=== PATIENT | female | born 1965 | race Caucasian/White ===

== ENCOUNTER → 2019-11-17 14:11 | Outpatient (BNVA) | payer MEDICAID, SELFPAY | PROVIDERS: Family Provider Nurse Practitioner Family; PCP Nurse Practitioner Family; Visit Provider Nurse Practitioner Family | DX: J02.9 Acute pharyngitis, unspecified (principal); R05 Cough | CPT/HCPCS: 87081; 87880 ==

== ENCOUNTER → 2019-11-20 12:08 | Outpatient (BNVA) | payer MEDICAID, SELFPAY | PROVIDERS: Family Provider Nurse Practitioner Family; PCP Nurse Practitioner Family; Visit Provider Nurse Practitioner | DX: G89.29 Other chronic pain (principal); M51.16 Intervertebral disc disorders with radiculopathy, lumbar region; M47.816 Spondylosis without myelopathy or radiculopathy, lumbar region; Z79.891 Long term (current) use of opiate analgesic | CPT/HCPCS: 99213; 99215 ==

== ENCOUNTER → 2019-12-08 15:55 | Outpatient (BNVA) | payer MEDICAID, SELFPAY | PROVIDERS: Family Provider Nurse Practitioner Family; PCP Nurse Practitioner Family; Visit Provider Specialist | DX: M25.512 Pain in left shoulder (principal) | CPT/HCPCS: 73030 ==

== ENCOUNTER → 2019-12-16 14:22 | Outpatient (BNVA) | payer MEDICAID, SELFPAY | PROVIDERS: Family Provider Nurse Practitioner Family; PCP Nurse Practitioner Family; Visit Provider Specialist | DX: G43.709 Chronic migraine without aura, not intractable, without status migrainosus (principal) | CPT/HCPCS: 99213 ==

== ENCOUNTER → 2019-12-18 13:07 | Outpatient (BNVA) | payer MEDICAID, SELFPAY | PROVIDERS: Family Provider Nurse Practitioner Family; PCP Nurse Practitioner Family; Visit Provider Anesthesiology | DX: G89.29 Other chronic pain (principal); M51.16 Intervertebral disc disorders with radiculopathy, lumbar region; M47.816 Spondylosis without myelopathy or radiculopathy, lumbar region; M79.651 Pain in right thigh; M79.652 Pain in left thigh; Z79.891 Long term (current) use of opiate analgesic | CPT/HCPCS: 99214 ==

== ENCOUNTER 2019-12-31 14:46 | Outpatient (CLI) | payer MEDICAID, SELFPAY ==
--- NOTE | 2019-12-31 14:55 | XR_ITS ---
WS: [id number] XR lumbar spine 2-3V* [id number] REASON FOR EXAM: CHRONIC BACK PAIN/DORSALGIA FINDINGS: The disc spaces and vertebral bodies are all normal. The lumbosacral angle is normal. AP projection the lamina, pedicles, spinous processes, and transverse processes are normal. A spina bifida occulta is seen at the S1 segment. XR/XR lumbar spine 2-3V* [id number] IMPRESSION: Normal lumbar spine. Spina bifida occulta S1 segment.
== END 2019-12-31 14:47 | disposition home or self-care (01) ==
LOC: RAD 14:49
PROVIDERS: Family Provider Nurse Practitioner Family; PCP Nurse Practitioner Family; Visit Provider Nurse Practitioner Family
DX: Q76.0 Spina bifida occulta (principal); M51.16 Intervertebral disc disorders with radiculopathy, lumbar region; M54.5 Low back pain; G89.29 Other chronic pain
CPT/HCPCS: 72100

== ENCOUNTER → 2020-01-20 13:01 | Outpatient (BNVA) | payer MEDICAID, SELFPAY | PROVIDERS: Family Provider Nurse Practitioner Family; PCP Nurse Practitioner Family; Visit Provider Anesthesiology | DX: G89.29 Other chronic pain (principal); M51.16 Intervertebral disc disorders with radiculopathy, lumbar region; M47.816 Spondylosis without myelopathy or radiculopathy, lumbar region; M79.651 Pain in right thigh; M79.652 Pain in left thigh; Z79.891 Long term (current) use of opiate analgesic | CPT/HCPCS: 99213 ==

== ENCOUNTER → 2020-01-26 08:37 | Outpatient (BNVA) | payer MEDICAID, SELFPAY | PROVIDERS: Family Provider Nurse Practitioner Family; PCP Nurse Practitioner Family; Visit Provider Nurse Practitioner Psychiatric/Mental Health | DX: F33.2 Major depressive disorder, recurrent severe without psychotic features (principal); G89.29 Other chronic pain | CPT/HCPCS: 99213 ==

== ENCOUNTER → 2020-01-30 08:43 | Outpatient (BNVA) | payer MEDICAID, SELFPAY | PROVIDERS: Family Provider Nurse Practitioner Family; PCP Nurse Practitioner Family; Visit Provider Nurse Practitioner Family | DX: E11.9 Type 2 diabetes mellitus without complications (principal); K75.81 Nonalcoholic steatohepatitis (NASH); K74.60 Unspecified cirrhosis of liver; E55.9 Vitamin D deficiency, unspecified; R53.83 Other fatigue | CPT/HCPCS: 80053; 80061; 82306; 83036 ==

== ENCOUNTER → 2020-02-12 10:41 | Outpatient (BNVA) | payer MEDICAID, SELFPAY | PROVIDERS: Family Provider Nurse Practitioner Family; PCP Nurse Practitioner Family; Visit Provider Nurse Practitioner | DX: E87.6 Hypokalemia (principal) | CPT/HCPCS: 80048 ==

== ENCOUNTER → 2020-02-23 08:31 | Outpatient (BNVA) | payer MEDICAID, SELFPAY | PROVIDERS: Family Provider Nurse Practitioner Family; PCP Nurse Practitioner Family; Visit Provider Nurse Practitioner Psychiatric/Mental Health | DX: F33.2 Major depressive disorder, recurrent severe without psychotic features (principal); G89.29 Other chronic pain | CPT/HCPCS: 90832; 99213 ==

== ENCOUNTER → 2020-04-19 07:35 | Outpatient (BNVA) | payer MEDICAID, SELFPAY | PROVIDERS: Family Provider Nurse Practitioner Family; PCP Nurse Practitioner Family; Visit Provider Nurse Practitioner Psychiatric/Mental Health | DX: F33.2 Major depressive disorder, recurrent severe without psychotic features (principal); G89.29 Other chronic pain | CPT/HCPCS: 99212 ==

== ENCOUNTER → 2020-04-28 14:37 | Outpatient (BNVA) | payer MEDICAID, SELFPAY | PROVIDERS: Family Provider Nurse Practitioner Family; PCP Nurse Practitioner Family; Visit Provider Nurse Practitioner Family | DX: M25.462 Effusion, left knee (principal); M79.644 Pain in right finger(s); M19.041 Primary osteoarthritis, right hand | CPT/HCPCS: 73130; 73562 ==

== ENCOUNTER → 2020-05-21 08:27 | Outpatient (BNVA) | payer MEDICAID, SELFPAY | PROVIDERS: Family Provider Nurse Practitioner Family; PCP Nurse Practitioner Family; Visit Provider Anesthesiology | DX: G89.29 Other chronic pain (principal); M51.16 Intervertebral disc disorders with radiculopathy, lumbar region; M47.816 Spondylosis without myelopathy or radiculopathy, lumbar region; M54.9 Dorsalgia, unspecified; Z79.891 Long term (current) use of opiate analgesic | CPT/HCPCS: 99212; 99213 ==

== ENCOUNTER → 2020-05-24 14:27 | Outpatient (BNVA) | payer MEDICAID, SELFPAY | PROVIDERS: Family Provider Nurse Practitioner Family; PCP Nurse Practitioner Family; Visit Provider Nurse Practitioner Family | DX: E11.9 Type 2 diabetes mellitus without complications (principal); J44.9 Chronic obstructive pulmonary disease, unspecified; K21.0 Gastro-esophageal reflux disease with esophagitis; E87.6 Hypokalemia; F41.9 Anxiety disorder, unspecified; R35.0 Frequency of micturition; J30.89 Other allergic rhinitis; G47.9 Sleep disorder, unspecified; E83.42 Hypomagnesemia; E78.2 Mixed hyperlipidemia; K59.09 Other constipation; G43.709 Chronic migraine without aura, not intractable, without status migrainosus; F32.9 Major depressive disorder, single episode, unspecified; R11.0 Nausea; R05 Cough | CPT/HCPCS: 80053; 80061; 82306; 83036; 84443; 85025 ==

== ENCOUNTER → 2020-05-25 15:35 | Outpatient (BNVA) | payer MEDICAID, SELFPAY | PROVIDERS: Family Provider Nurse Practitioner Family; PCP Nurse Practitioner Family; Visit Provider Nurse Practitioner Family | DX: J44.9 Chronic obstructive pulmonary disease, unspecified (principal); R05 Cough | CPT/HCPCS: 71046 ==

== ENCOUNTER → 2020-05-27 14:59 | Outpatient (BNVA) | payer MEDICAID, SELFPAY | PROVIDERS: Family Provider Nurse Practitioner Family; PCP Nurse Practitioner Family; Visit Provider Dermatology | DX: L98.1 Factitial dermatitis (principal); D23.9 Other benign neoplasm of skin, unspecified; B07.8 Other viral warts; L83 Acanthosis nigricans; L91.8 Other hypertrophic disorders of the skin | CPT/HCPCS: 17000; 17003; 99203; 99204 ==

== ENCOUNTER 2020-07-12 10:40 | Outpatient (CLI) | payer MEDICAID, SELFPAY ==
--- NOTE | 2020-07-12 10:45 | FL_ITS ---
WS: [id number] EXAM: DOUBLE CONTRAST ESOPHAGRAM DATE OF EXAMINATION: 07/12/2020, 1104 hours COMPARISON: None. HISTORY: Patient is 54 years old with dysphagia. FINDINGS: Public Address System Installer imaging shows a normal appearance to the retropharyngeal soft tissues. No steepling of the airw ay is seen. Double contrast esophagram was performed in routine fashion. There is utilization of both sides of the piriform sinuses. Esophageal mucosa is smooth. Esophageal peristalsis is normal. A fair ly patulous GE junction is demonstrated which could suggest reflux disease. Patient swallowed a bariu m tablet which passed easily into the stomach. FL/FL barium swallow [id number] IMPRESSION: Essentially normal esophagram other than a fairly patulous GE junction. Questio n if the patient has underlying reflux disease.
== END 2020-07-12 10:41 | disposition home or self-care (01) ==
LOC: RAD 10:42
PROVIDERS: PCP Nurse Practitioner Family; Visit Provider Specialist
DX: R13.10 Dysphagia, unspecified (principal)
CPT/HCPCS: 74220; 99212

== ENCOUNTER 2020-07-16 09:53 | Outpatient (CLI) | payer MEDICAID, SELFPAY ==
--- NOTE | 2020-07-16 10:04 | FL_ITS ---
WS: [id number] MODIFIED BARIUM SWALLOW HISTORY: Other dysphagia FLUOROSCOPY TIME: 2.4 minutes. Modified barium swallow was performed by the speech pathologist. Fluoroscopy was provided with the pa tient in a lateral projection. Multiple food consistencies were provided. No aspiration or laryngeal penetration on this examination. There was difficulty in forming a food nitin chana and swallowing. Patient was edentulous during this examination. There is mild pharyngeal coating of barium throughout this examination. Patient swallowed the barium tablet without too much difficult y. FL/FL barium swallow modifd [id number] IMPRESSION: 1. No aspiration or laryngeal penetration. 2. Mild residual barium coating of the pharynx. Please see speech therapist report also for recommendations.
== END 2020-07-16 09:54 | disposition home or self-care (01) ==
LOC: RAD 10:00
PROVIDERS: PCP Nurse Practitioner Family; Visit Provider Specialist
DX: R13.10 Dysphagia, unspecified (principal)
CPT/HCPCS: 74230; 92611

== ENCOUNTER → 2020-07-26 11:42 | Outpatient (BNVA) | payer MEDICAID, SELFPAY | PROVIDERS: PCP Nurse Practitioner Family; Visit Provider Internal Medicine | DX: Z20.828 Contact with and (suspected) exposure to other viral communicable diseases (principal) | CPT/HCPCS: 87635 ==

== ENCOUNTER 2020-07-29 11:37 | Outpatient (CLI) | payer MEDICAID, SELFPAY ==
--- NOTE | 2020-07-29 09:27 | PFTS_ITS ---
Date of Study:07/29/20 Date of Dictation: MECHANICS: Forced vital capacity (FVC) is reduced. Forced expiratory volume in one second (FEV1) is reduced. FEV1/FVC is normal. FLOW VOLUME LOOP: The flow volume loop is without any distinct peak expiratory flow. The shape of the flow volume loop is somewhat consistent with a fixed airway obstruction LUNG VOLUMES: Lung volumes were not measured DIFFUSING CAPACITY FOR CARBON MONOXIDE: Not measured INTERPRETATION: The postbronchodilator spirometry is consistent with mild restriction. There is no significant postbronchodilator response. The shape of the flow volume loop is suspicious for fixed airflow obstruction MTDD
--- NOTE | 2020-07-29 14:14 | PFTS_ITS ---
Date of Study:07/29/20 Date of Dictation: MECHANICS: Forced vital capacity (FVC) is . Forced expiratory volume in one second (FEV1) is . FEV1/FVC is . FLOW VOLUME LOOP: . LUNG VOLUMES: Total lung capacity (TLC) is . Residual volume (RV) is . DIFFUSING CAPACITY FOR CARBON MONOXIDE: . INTERPRETATION: The pulmonary function tests are . mechanics and lung volumes. Gas exchange (DLCO) is . MTDD
== END 2020-07-29 11:38 | disposition home or self-care (01) ==
LOC: RT 11:38
PROVIDERS: PCP Nurse Practitioner Family; Visit Provider Specialist
DX: R13.10 Dysphagia, unspecified (principal)
CPT/HCPCS: 94060; J7611

== ENCOUNTER → 2020-10-07 08:27 | Outpatient (BNVA) | payer MEDICAID, SELFPAY | PROVIDERS: PCP Nurse Practitioner Family; Visit Provider Nurse Practitioner Psychiatric/Mental Health | DX: F33.2 Major depressive disorder, recurrent severe without psychotic features (principal); G89.29 Other chronic pain; F41.9 Anxiety disorder, unspecified; F33.1 Major depressive disorder, recurrent, moderate | CPT/HCPCS: 99212 ==

== ENCOUNTER → 2020-10-26 09:31 | Outpatient (BNVA) | payer MEDICAID, SELFPAY | PROVIDERS: PCP Nurse Practitioner Family; Visit Provider Nurse Practitioner Family | DX: H00.019 Hordeolum externum unspecified eye, unspecified eyelid (principal); E11.9 Type 2 diabetes mellitus without complications; E78.5 Hyperlipidemia, unspecified; E55.9 Vitamin D deficiency, unspecified; Z79.899 Other long term (current) drug therapy | CPT/HCPCS: 80053; 80061; 83036; 84443; 85025 ==

== ENCOUNTER 2020-11-16 16:41 | Outpatient (CLI) | payer BC, MEDICAID, SELFPAY ==
[2020-11-18 16:18] LABS: Immunoglobulin E 138 kU/L (<OR=114)
[2020-11-19 16:18] LABS: Alternaria Alternata (M6) Ige <0.10 kU/L; Alternaria Class 0; Bermuda Class 0; Bermuda Grass (G2) Ige <0.10 kU/L; Cat Dander (E1) Ige <0.10 kU/L; Cat Dander Class 0; Common Ragweed (Short) (W1) Ig <0.10 kU/L; D. Farinae Class 0; Dermatophagoides Class 0; Dermatophagoides Farinae (D2) <0.10 kU/L; Dermatophagoides Pteronyssinus <0.10 kU/L; Dog Dander (E5) Ige <0.10 kU/L; Dog Dander Class 0; Elm (T8) Ige <0.10 kU/L; Elm Class 0; English Plantain (W9) Ige <0.10 kU/L; English Plantain Class 0; House Dust (Greer) (H1) Ige <0.10 kU/L; House Dust (Hollister- Stier) <0.10 kU/L; House Dust Class 0; Immunoglobulin E 139 kU/L (<OR=114); Johnson Grass (G10) Ige <0.10 kU/L; Johnson Grass Cl 0; June Grass Class 0; June Grass(Kentucky Blue) (G8) <0.10 kU/L; Lamb'S Quarters (Goose Foot) <0.10 kU/L; Lamb'S Quarters Class 0; Maple (Box Elder) (T1) Ige <0.10 kU/L; Maple Class 0; Meadow Fescue (G4) Ige <0.10 kU/L; Meadow Fescue Class 0; Mucor Racemosus Class 0; Oak (T7) Ige <0.10 kU/L; Oak Class 0; Orchard Grass (Cocksfoot) (G3) <0.10 kU/L; Penicillium Class 0; Penicillium Notatum (M1) Ige <0.10 kU/L; Perennial Rye Grass (G5) Ige <0.10 kU/L; Perennial Rye Grass Class 0; Ragweeed Class 0; Rough Marsh Elder (W16) Ige <0.10 kU/L; Rough Marsh Elder Class 0; Sweet Vernal Class 0; Sweet Vernal Grass (G1) Ige <0.10 kU/L; Timothy Grass (G6) Ige <0.10 kU/L; Timothy Grass Class 0
[2020-11-19 18:49] LABS: Aspergillus Fumigatus, Igg Ab, 10.9 mg/L (<=102)
== END 2020-11-16 16:42 | disposition home or self-care (01) ==
PROVIDERS: PCP Nurse Practitioner Family; Visit Provider Internal Medicine Critical Care Medicine
DX: J44.9 Chronic obstructive pulmonary disease, unspecified (principal)
CPT/HCPCS: 36415; 82785; 86003

== ENCOUNTER 2020-11-19 15:43 | Emergency (ER) | payer BC, MEDICAID, SELFPAY ==
[2020-11-19 15:49] VITALS: BP 133/64; PULSE 70; RESP 18; TEMP 36.8; O2SAT 96; BMI 43.0
--- NOTE | 2020-11-19 15:57 | W.ED.ABDPA2 ---
Documented by User: WEI Espinal 11/19/20 16:09 HPI - Abdominal Pain General: Chief Complaint: Abdominal Pain Stated Complaint: right side pain Time Seen by Provider: 11/19/20 15:50 Source: patient Mode of arrival: ambulatory Limitations: no limitations History of Present Illness: HPI narrative: Patient is a 55-year-old female who presents to ED today after she was referred here by her PCP for complaints of right upper abdominal pain. Patient tells me pain began fairly suddenly after she awoke from sleep. Patient denies nausea, vomiting, diarrhea, constipation. She has not been experiencing fevers. She has a history of a previous cholecystectomy. She denies dysuria, frequency, urgency, or changes in the color or odor of her urine. MD elicited complaint: abdominal pain Onset (ago): hour(s) Pain Consistency: constant Location: RUQ Severity: severe Radiation: R flank Exacerbating factors: nothing Relieving factors: nothing Associated Symptoms: Denies change in stool character, chills, constipation, diarrhea, dysuria, fever(s), nausea and vomiting Review of Systems Const: Denies: fever(s), chills, body aches, fatigue or malaise Card: Denies: chest pain Resp: Denies: dyspnea GI: Reports: abdominal pain; Denies: nausea, vomiting, diarrhea, constipation or change in stool character : Denies: flank pain, difficulty voiding, dysuria, urinary frequency, urinary urgency, urinary hesitancy, vaginal odor, vaginal bleeding, vaginal discharge or pelvic pain Musc: Denies: neck pain or back pain Skin/Breast: Denies: rash Neuro: Denies: headache(s), numbness in extremities, weakness in extremities or sensory changes PFS ED PFSH: Medical History (Updated 11/19/20 @ 18:02 by ERASTO Pimentel) Anxiety and depression Chronic back pain greater than 3 months duration Chronic constipation Chronic migraine Chronic nausea COPD with asthma Diabetes mellitus Diabetic neuropathy Encounter for long-term opiate analgesic use Environmental and seasonal allergies Facet arthritis of lumbar region GERD (gastroesophageal reflux disease) History of suicidal ideation HSV-2 infection Hyperlipidemia Hypokalemia Hypomagnesemia 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 Lumbar disc disease with radiculopathy Lung nodule Major depressive disorder, recurrent, moderate Sleeping difficulty Urinary frequency Vitamin D deficiency, unspecified Surgical History Hx of cholecystectomy Hx of exploratory laparotomy abdominal surgery Hx of tonsillectomy Hx of unilateral oophorectomy left benign tumor Family History Mother Stroke maternal grandmother Father Cancer Lung Family/Other Diabetes Uncle Other Breast cancer Colon cancer Family history of thyroid problem Heart disease Ovarian cancer Uterine cancer Social History Smoking and tobacco status: former smoker Quit status (tobacco): has quit using tobacco Year quit tobacco: 1996 - 1PPD x 20 Years Second hand smoke exposure: Yes Alcohol intake: never Counseling given: No Counseling given: No Lives independently: Yes Household members: children Marital status: Current occupational status: unemployed History of recent travel: No Current gender identity: Female Additional social history: - Tobacco use: Former; quit in 1999 Alcohol use: Denies Drug use: Denies Physical Exam Const: COMMON NORMALS: no acute distress, patient oriented x3, no limitations and alert GENERAL APPEARANCE: cooperative NUTRITIONAL APPEARANCE: obese morbidly obese ORIENTATION/CONSCIOUSNESS: Yes awake, Yes oriented to person, Yes oriented to place and Yes oriented to time Resp: COMMON NORMALS: normal respiratory effort and clear to auscultation bilaterally EFFORT & INSPECTION: Yes able to speak in complete sentences AUSCULTATION: clear to auscultation bilaterally Cardio: COMMON NORMALS: regular rate and regular rhythm RATE: regular rate RHYTHM: regular rhythm GI: COMMON NORMALS: Normal to inspection, nondistended, normoactive bowel sounds present, Soft to palpation, No hepatosplenomegaly present and no masses PALPATION: Yes Soft to palpation, Yes Tenderness to palpation present (GI) Details: RUQ and Yes No hepatosplenomegaly present Back/Pelvis: GENERAL BACK: Yes CVA tenderness (mild R) Extremity: COMMON NORMALS: no pedal edema GENERAL: Yes normal exam except as noted Neuro: COMMON NORMALS: patient oriented x3 SENSORIUM/ORIENTATION: Yes alert, Yes oriented to person, Yes oriented to place and Yes oriented to time Skin: COMMON NORMALS: no rashes or lesions noted GENERAL SKIN EXAM: no rashes or lesions noted Course Vital Signs: Vital signs: Vital Signs Temperature 98.2 F 11/19/20 15:49 Pulse Rate 71 11/19/20 17:38 Respiratory Rate 18 11/19/20 17:38 Blood Pressure 142/84 11/19/20 17:38 Pulse Oximetry 97 11/19/20 17:38 MDM - Abdominal Pain Lab Data: Labs: Lab Results 11/19/20 11/19/20 11/19/20 Range/Units 16:01 16:01 16:12 WBC 10.6 H (4.0-10.0) 10^3/ uL RBC 5.85 H (4.1-5.3) 10^6/u L Hgb 15.3 (11.5-15.3) g/dL Hct 48.6 H (37.0-47.0) % MCV 83.1 (81-99) fL MCH 26.2 L (28.0-34.0) pg MCHC 31.5 (30.0-36.0) g/dL RDW 15.7 H (12.1-15.1) % Plt Count 309 (130-400) 10^3/c mm MPV 9.8 (7.4-10.4) fL Neut % (Auto) 57.3 % Lymph % (Auto) 32.5 % Reagan % (Auto) 7.7 % Eos % (Auto) 1.5 % Baso % (Auto) 0.7 % Neut # (Auto) 6.08 (1.8-7.7) 10^3/u L Lymph # (Auto) 3.4 (0.8-4.8) 10^3/u L Reagan # (Auto) 0.8 (0.2-0.9) 10^3/u L Eos # (Auto) 0.2 (0.0-0.8) 10^3/u L Baso # (Auto) 0.1 (0.0-0.1) 10^3/u L Nucleated RBC % (a uto) 0 % Nucleated RBCs # 0.0 /100WBC Sodium 136 (136-145) mmol/L Potassium 4.2 (3.5-5.1) mmol/L Chloride 100 (98-107) mmol/L Carbon Dioxide 25 (22-29) mmol/L Anion Gap 15.2 (5-19) BUN 16 (6-20) mg/dL Creatinine 0.8 (0.5-0.9) mg/dL GFR Calculation 74.5 L (90-130) mL/min Glucose 196 H (65-115) mg/dL Calculated Osmolal ity 289 (285-295) mOsm/k g Calcium 10.0 (8.5-10.5) mg/dL Total Bilirubin 0.2 (0.15-1.2) mg/dL AST 28 (0-32) U/L ALT 24 (0-33) U/L Alkaline Phosphata se 129 H (35-105) IU/L Total Protein 7.5 (6.6-8.7) g/dL Albumin 4.1 (3.5-5.2) g/dL Globulin 3.4 (1.3-4.6) g/dL Urine Color Yellow (Yellow) Urine Appearance Clear (CLEAR) Urine pH 5 (5-7) Ur Specific Gravit y 1.010 (1.005-1.030) Urine Protein Neg (Negative) Urine Glucose (UA) 4+ H (Normal) Urine Ketones Negative (Negative) Urine Blood Neg (Negative) Urine Nitrate Negative (Negative) Urine Bilirubin Neg (Negative) Urine Urobilinogen Norm (Negative) mg/dL Ur Leukocyte Courtney ase Negative (Negative) Discharge Plan Discharge Patient Disposition: Home Clinical Impression: 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, Fatty liver Abdominal pain Qualifiers: Abdominal location: right upper quadrant Qualified Code(s): R10.11 - Right upper quadrant pain Condition: Stable Prescriptions: No Action vitamin E 200 unit capsule 400 unit PO DAILY@0930 RF: 0 terconazole 0.8 % cream 1 appful VAGINAL .nightly Qty: 20 RF: 0 cyclobenzaprine 10 mg tablet 10 mg PO TID PRN (Reason: MUSCLE SPASMS) RF: 0 albuterol sulfate 90 mcg/actuation HFA aerosol inhaler 2 puff INHALATION Q6H PRN (Reason: shortness of breath or wheezing) 30 Days Qty: 6.7 RF: 5 cholecalciferol (vitamin D3) 1,250 mcg (50,000 unit) capsule See Rx Instructions .ROUTE .COMPLEX Qty: 4 RF: 2 benzonatate 200 mg capsule 200 mg PO TID PRN (Reason: cough) 30 Days Qty: 90 RF: 2 docusate sodium [Colace] 100 mg capsule 100 mg PO BID PRN (Reason: constipation) 30 Days Qty: 60 RF: 5 rizatriptan [Maxalt-STRATEGIC PARTNER DEVELOPMENT MANAGER] 10 mg tablet,disintegrating See Rx Instructions PO .COMPLEX Qty: 14 RF: 3 fluticasone propionate [Flonase Allergy Relief] 50 mcg/actuation spray,suspension 1 spray intranasal Q12H 30 Days Qty: 15.8 RF: 3 azelastine 137 mcg (0.1 %) aerosol,spray 2 spray intranasal BID 30 Days Qty: 30 RF: 3 albuterol sulfate 2.5 mg /3 mL (0.083 %) solution for nebulization 2.5 mg INHALATION QID PRN (Reason: wheezing) Qty: 180 RF: 2 Ubrelvy 100 mg tablet 100 mg PO ONCE MDD 200 mg PRN (Reason: Migraine ) Qty: 30 RF: 2 oxycodone 5 mg tablet 5 mg PO QID PRN (Reason: pain) 30 Days Qty: 120 RF: 0 sumatriptan succinate 100 mg tablet 100 mg PO Q2H PRN (Reason: migraine headache) Qty: 9 RF: 4 Advair Diskus 250-50 mcg/dose blister with device 1 inh INHALATION BID@929,2099 RF: 0 Carafate 1 gram tablet 1 g PO TID@929,1199,2099 RF: 0 simvastatin 80 mg tablet 80 mg PO DAILY@929 RF: 0 pantoprazole 40 mg tablet,delayed release (DR/EC) 40 mg PO BID@929,2099 RF: 0 oxybutynin chloride 5 mg tablet extended release 24hr 5 mg PO DAILY@929 RF: 0 paroxetine HCl 40 mg tablet 40 mg PO DAILY@929 RF: 0 propranolol 20 mg tablet 40 mg PO BID@929,2099 RF: 0 magnesium 200 mg tablet 400 mg PO DAILY@929 RF: 0 melatonin 10 mg tablet 10 mg PO BEDTIME RF: 0 dapagliflozin 10 mg tablet 10 mg PO DAILY@929 RF: 0 potassium chloride 20 mEq tablet extended release 20 meq PO BID@929,2099 RF: 0 Discharge Orders: Discharge ED (Routine); Ordered 11/19/20 Ordered By: June Grimm Referrals: Jaleesa Diop FNP-C [Primary Care Provider] - Discharge Diet: Low Cholesterol and Low Fat Discharge Activity: Resume usual activity Patient Instructions: Acute Abdominal Pain (ED), Non-Alcoholic Fatty Liver Disease (ED), Abdominal Pain (ED) Activity Restrictions/Additional Instructions: Continue current medications as prescribed by your primary care provider Continue follow-up with primary care for abdominal pain if continues Recommend low-fat, low-cholesterol diet to help with fatty liver findings Return to the emergency department if you develop worsening abdominal pain, nausea vomiting or other concerning symptoms such as blood in your urine or stool. Sign Out Sign Out Data: Patient Sign Out occurred on 11/19/20 at 17:17. Patient's care was discussed, and care was transferred from to ERASTO Pimentel. Coding Level of Care Code ED Supervisor [employer] for Chg Fwd Exam Detailed Documented by User: ERASTO Pimentel 11/19/20 18:18 HPI - Abdominal Pain General: Chief Complaint: Abdominal Pain Stated Complaint: right side pain Time Seen by Provider: 11/19/20 15:50 PFSH ED PFSH: Medical History (Updated 11/19/20 @ 18:02 by ERASTO Pimentel) Anxiety and depression Chronic back pain greater than 3 months duration Chronic constipation Chronic migraine Chronic nausea COPD with asthma Diabetes mellitus Diabetic neuropathy Encounter for long-term opiate analgesic use Environmental and seasonal allergies Facet arthritis of lumbar region GERD (gastroesophageal reflux disease) History of suicidal ideation HSV-2 infection Hyperlipidemia Hypokalemia Hypomagnesemia 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 Lumbar disc disease with radiculopathy Lung nodule Major depressive disorder, recurrent, moderate Sleeping difficulty Urinary frequency Vitamin D deficiency, unspecified Surgical History Hx of cholecystectomy Hx of exploratory laparotomy abdominal surgery Hx of tonsillectomy Hx of unilateral oophorectomy left benign tumor Family History Mother Stroke maternal grandmother Father Cancer Lung Family/Other Diabetes Uncle Other Breast cancer Colon cancer Family history of thyroid problem Heart disease Ovarian cancer Uterine cancer Social History (Reviewed 11/19/20 @ 14:51 by FAHEEM Otto Smoking and tobacco status: former smoker Quit status (tobacco): has quit using tobacco Year quit tobacco: 1996 - 1PPD x 20 Years Second hand smoke exposure: Yes Alcohol intake: never Counseling given: No Counseling given: No Lives independently: Yes Household members: children Marital status: Current occupational status: unemployed History of recent travel: No Current gender identity: Female Additional social history: - Tobacco use: Former; quit in 1999 Alcohol use: Denies Drug use: Denies Course Vital Signs: Vital signs: Vital Signs Temperature 98.2 F 11/19/20 15:49 Pulse Rate 71 11/19/20 17:38 Respiratory Rate 18 11/19/20 17:38 Blood Pressure 142/84 11/19/20 17:38 Pulse Oximetry 97 11/19/20 17:38 MDM - Abdominal Pain MDM Narrative: Medical decision making narrative: 55-year-old female patient presents to the emergency department with right upper quadrant pain. She has a history of cholecystectomy; reports pain to the right upper quadrant on and off, she denies change in bowel movements, nausea vomiting fever or chills. Has history of liver cirrhosis secondary to VOGEL; CT scan with abdominal findings consistent with fatty liver infiltration which can cause right upper quadrant pain. CBC without acute abnormal findings, chemistry with slight elevation of alkaline phosphatase with normal liver enzymes. Urinalysis without hematuria or concerning findings for UTI. Patient was advised of fatty liver findings on CT scan. Advised weight loss with low-fat diet. She reports recent upper GI series with endoscopy; plan to refer back to primary care for continued monitoring of right upper quadrant pain. Differential Diagnosis: Differential diagnosis abdominal pain: Likely abdominal pain, acute appendicitis, calculus of kidney, constipation and pancreatitis Lab Data: Attestation: I reviewed the patient's lab results. Labs: Lab Results 11/19/20 11/19/20 11/19/20 Range/Units 16:01 16:01 16:12 WBC 10.6 H (4.0-10.0) 10^3/ uL RBC 5.85 H (4.1-5.3) 10^6/u L Hgb 15.3 (11.5-15.3) g/dL Hct 48.6 H (37.0-47.0) % MCV 83.1 (81-99) fL MCH 26.2 L (28.0-34.0) pg MCHC 31.5 (30.0-36.0) g/dL RDW 15.7 H (12.1-15.1) % Plt Count 309 (130-400) 10^3/c mm MPV 9.8 (7.4-10.4) fL Neut % (Auto) 57.3 % Lymph % (Auto) 32.5 % Reagan % (Auto) 7.7 % Eos % (Auto) 1.5 % Baso % (Auto) 0.7 % Neut # (Auto) 6.08 (1.8-7.7) 10^3/u L Lymph # (Auto) 3.4 (0.8-4.8) 10^3/u L Reagan # (Auto) 0.8 (0.2-0.9) 10^3/u L Eos # (Auto) 0.2 (0.0-0.8) 10^3/u L Baso # (Auto) 0.1 (0.0-0.1) 10^3/u L Nucleated RBC % (a uto) 0 % Nucleated RBCs # 0.0 /100WBC Sodium 136 (136-145) mmol/L Potassium 4.2 (3.5-5.1) mmol/L Chloride 100 (98-107) mmol/L Carbon Dioxide 25 (22-29) mmol/L Anion Gap 15.2 (5-19) BUN 16 (6-20) mg/dL Creatinine 0.8 (0.5-0.9) mg/dL GFR Calculation 74.5 L (90-130) mL/min Glucose 196 H (65-115) mg/dL Calculated Osmolal ity 289 (285-295) mOsm/k g Calcium 10.0 (8.5-10.5) mg/dL Total Bilirubin 0.2 (0.15-1.2) mg/dL AST 28 (0-32) U/L ALT 24 (0-33) U/L Alkaline Phosphata se 129 H (35-105) IU/L Total Protein 7.5 (6.6-8.7) g/dL Albumin 4.1 (3.5-5.2) g/dL Globulin 3.4 (1.3-4.6) g/dL Urine Color Yellow (Yellow) Urine Appearance Clear (CLEAR) Urine pH 5 (5-7) Ur Specific Gravit y 1.010 (1.005-1.030) Urine Protein Neg (Negative) Urine Glucose (UA) 4+ H (Normal) Urine Ketones Negative (Negative) Urine Blood Neg (Negative) Urine Nitrate Negative (Negative) Urine Bilirubin Neg (Negative) Urine Urobilinogen Norm (Negative) mg/dL Ur Leukocyte Courtney ase Negative (Negative) Imaging Data ^: CT Abd/Pel: Attestation: I personally reviewed and interpreted this imaging study as follows: Radiologist's impression: [facility] [address] [address] Scan Report Signed Patient: Madison Lemus Unit #: [id number] : 1965 Age/Sex: 55 / F ADM Date: 11/19/20 Loc: ER Room/Bed: Attending Dr: Ordering Provider/Ordering MD: Viktoria Blue Date of Service: 11/19/20 Procedure(s): CT abdomen pelvis w con* [id number] Accession Number(s): [id number] Report Number: [id number] PROCEDURE INFORMATION: Exam: CT Abdomen And Pelvis With Contrast Exam date and time: 11/19/2020 4:53 PM Age: 55 years old Clinical indication: Abdominal pain; Localized; Right upper quadrant (ruq); Prior surgery; Surgery type: Gb, ; patient HX: History of cirrhosis; Additional info: Ruq pain TECHNIQUE: Imaging protocol: Computed tomography of the abdomen and pelvis with intravenous contrast. Radiation optimization: All CT scans at this facility use at least one of these dose optimization techniques: automated exposure control; mA and/or kV adjustment per patient size (includes targeted exams where dose is matched to clinical indication); or iterative reconstruction. Contrast material: OMNI 300; Contrast volume: 95 ml; Contrast route: INTRAVENOUS (IV); COMPARISON: CT abdomen pelvis w con* [id number] 02/16/2018 7:23 PM RADIATION DOSE METRICS: Total DLP (mGy-cm): 1689.3 FINDINGS: Liver: There is a diffuse decrease in hepatic parenchymal density, consistent with moderate fatty infiltration. There is no focal abnormality within the liver. Gallbladder and bile ducts: There has been a cholecystectomy. This is new from previous. Pancreas: The pancreas is normal. Spleen: The spleen is normal. Adrenal glands: The adrenal glands are normal. Kidneys and ureters: The kidneys are normal. There is no evidence of hydronephrosis. There is no evidence of renal or ureteral calcifications. Stomach and bowel: There is no evidence of intestinal obstruction. Appendix: Not identified Intraperitoneal space: There is no evidence of free intraperitoneal fluid. Vasculature: Unremarkable. No abdominal aortic aneurysm. Lymph nodes: There is no evidence of lymphadenopathy. Urinary bladder: Unremarkable as visualized. Reproductive: Unremarkable as visualized. Bones/joints: Unremarkable. No acute fracture. Soft tissues: Unremarkable. CT/CT abdomen pelvis w con* [id number] IMPRESSION: 1. Fatty liver 2. Status post cholecystectomy. 3. No acute finding. 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, Fatty liver Abdominal pain Qualifiers: Abdominal location: right upper quadrant Qualified Code(s): R10.11 - Right upper quadrant pain Condition: Stable Prescriptions: No Action vitamin E 200 unit capsule 400 unit PO DAILY@0930 RF: 0 terconazole 0.8 % cream 1 appful VAGINAL .nightly Qty: 20 RF: 0 cyclobenzaprine 10 mg tablet 10 mg PO TID PRN (Reason: MUSCLE SPASMS) RF: 0 albuterol sulfate 90 mcg/actuation HFA aerosol inhaler 2 puff INHALATION Q6H PRN (Reason: shortness of breath or wheezing) 30 Days Qty: 6.7 RF: 5 cholecalciferol (vitamin D3) 1,250 mcg (50,000 unit) capsule See Rx Instructions .ROUTE .COMPLEX Qty: 4 RF: 2 benzonatate 200 mg capsule 200 mg PO TID PRN (Reason: cough) 30 Days Qty: 90 RF: 2 docusate sodium [Colace] 100 mg capsule 100 mg PO BID PRN (Reason: constipation) 30 Days Qty: 60 RF: 5 rizatriptan [Maxalt-STRATEGIC PARTNER DEVELOPMENT MANAGER] 10 mg tablet,disintegrating See Rx Instructions PO .COMPLEX Qty: 14 RF: 3 fluticasone propionate [Flonase Allergy Relief] 50 mcg/actuation spray,suspension 1 spray intranasal Q12H 30 Days Qty: 15.8 RF: 3 azelastine 137 mcg (0.1 %) aerosol,spray 2 spray intranasal BID 30 Days Qty: 30 RF: 3 albuterol sulfate 2.5 mg /3 mL (0.083 %) solution for nebulization 2.5 mg INHALATION QID PRN (Reason: wheezing) Qty: 180 RF: 2 Ubrelvy 100 mg tablet 100 mg PO ONCE MDD 200 mg PRN (Reason: Migraine ) Qty: 30 RF: 2 oxycodone 5 mg tablet 5 mg PO QID PRN (Reason: pain) 30 Days Qty: 120 RF: 0 sumatriptan succinate 100 mg tablet 100 mg PO Q2H PRN (Reason: migraine headache) Qty: 9 RF: 4 Advair Diskus 250-50 mcg/dose blister with device 1 inh INHALATION BID@929,2099 RF: 0 Carafate 1 gram tablet 1 g PO TID@929,1199,2099 RF: 0 simvastatin 80 mg tablet 80 mg PO DAILY@929 RF: 0 pantoprazole 40 mg tablet,delayed release (DR/EC) 40 mg PO BID@929,2099 RF: 0 oxybutynin chloride 5 mg tablet extended release 24hr 5 mg PO DAILY@929 RF: 0 paroxetine HCl 40 mg tablet 40 mg PO DAILY@929 RF: 0 propranolol 20 mg tablet 40 mg PO BID@929,2099 RF: 0 magnesium 200 mg tablet 400 mg PO DAILY@929 RF: 0 melatonin 10 mg tablet 10 mg PO BEDTIME RF: 0 dapagliflozin 10 mg tablet 10 mg PO DAILY@929 RF: 0 potassium chloride 20 mEq tablet extended release 20 meq PO BID@929,2099 RF: 0 Discharge Orders: Discharge ED (Routine); Ordered 11/19/20 Ordered By: June Grimm Referrals: Jaleesa Diop FNP-C [Primary Care Provider] - Discharge Diet: Low Cholesterol and Low Fat Discharge Activity: Resume usual activity Patient Instructions: Acute Abdominal Pain (ED), Non-Alcoholic Fatty Liver Disease (ED), Abdominal Pain (ED) Activity Restrictions/Additional Instructions: Continue current medications as prescribed by your primary care provider Continue follow-up with primary care for abdominal pain if continues Recommend low-fat, low-cholesterol diet to help with fatty liver findings Return to the emergency department if you develop worsening abdominal pain, nausea vomiting or other concerning symptoms such as blood in your urine or stool. Sign Out Sign Out Data: Patient Sign Out occurred on 11/19/20 at 17:17. Patient's care was discussed, and care was transferred from to ERASTO Pimentel. Coding Level of Care Code ED Supervisor [employer] for Aleidag Fwd Exam Detailed
[2020-11-19 16:12] VITALS: RESP 18; O2SAT 97
[2020-11-19] MEDS: morphine 4 mg/mL SDV 1 mL IVP (16:12)
[2020-11-19] MEDS: ondansetron 2 mg/ML SDV 2 mL 4 MG IVP (16:12)
[2020-11-19 16:18] LABS: Basophils # 0.1 10^3/uL (0.0-0.1); Basophils % 0.7 %; Eosinophils # 0.2 10^3/uL (0.0-0.8); Eosinophils % 1.5 %; Hematocrit 48.6 % (37.0-47.0); Hemoglobin 15.3 g/dL (11.5-15.3); Lymphocytes # 3.4 10^3/uL (0.8-4.8); Lymphocytes % 32.5 %; Mean Corpuscular HGB Conc 31.5 g/dL (30.0-36.0); Mean Corpuscular Hemoglobin 26.2 pg (28.0-34.0); Mean Corpuscular Volume 83.1 fL (81-99); Mean Platelet Volume 9.8 fL (7.4-10.4); Monocytes # 0.8 10^3/uL (0.2-0.9); Monocytes % 7.7 %; Neutrophils # 6.08 10^3/uL (1.8-7.7); Neutrophils % 57.3 %; Nucleated Red Blood Cells % 0 %; Platelet Count 309 10^3/cmm (130-400); Red Blood Count 5.85 10^6/uL (4.1-5.3); Red Cell Distribution Width 15.7 % (12.1-15.1); White Blood Count 10.6 10^3/uL (4.0-10.0)
[2020-11-19 16:34] LABS: Add Urine Microscopic? NO
[2020-11-19 16:40] LABS: Urine Appearance Clear (CLEAR); Urine Color Yellow (Yellow)
[2020-11-19 16:41] LABS: Bilirubin Urine Neg (Negative); Blood Urine Neg (Negative); Glucose Urine UA 4+ (Normal); Ketones Urine Negative (Negative); Leukocyte Esterase Urine Negative (Negative); Nitrate Urine Negative (Negative); Protein Urine Neg (Negative); Urobilinogen Urine Norm (Negative); pH Urine 5 (5-7)
[2020-11-19 16:43] LABS: Alanine Aminotransferase 24 U/L (0-33); Albumin Level 4.1 g/dL (3.5-5.2); Alkaline Phosphatase 129 IU/L (35-105); Aspartate Amino Transferase 28 U/L (0-32); Blood Urea Nitrogen 16 mg/dL (6-20); Carbon Dioxide 25 mmol/L (22-29); Chloride 100 mmol/L (98-107); Globulin 3.4 g/dL (1.3-4.6); Glomerular Filtration Rate 74.5 mL/min (90-130); Glucose 196 mg/dL (65-115); Osmolality Calculated 289 mOsm/kg (285-295); Sodium 136 mmol/L (136-145); Total Bilirubin 0.2 mg/dL (0.15-1.2); Total Protein 7.5 g/dL (6.6-8.7)
--- NOTE | 2020-11-19 16:45 | CTR_ITS ---
PROCEDURE INFORMATION: Exam: CT Abdomen And Pelvis With Contrast Exam date and time: 11/19/2020 4:53 PM Age: 55 years old Clinical indication: Abdominal pain; Localized; Right upper quadrant (ruq); Prior surgery; Surgery type: Gb, ; patient HX: History of cirrhosis; Additional info: Ruq pain TECHNIQUE: Imaging protocol: Computed tomography of the abdomen and pelvis with intravenous contrast. Radiation optimization: All CT scans at this facility use at least one of these dose optimization techniques: automated exposure control; mA and/or kV adjustment per patient size (includes targeted exams where dose is matched to clinical indication); or iterative reconstruction. Contrast material: OMNI 300; Contrast volume: 95 ml; Contrast route: INTRAVENOUS (IV); COMPARISON: CT abdomen pelvis w con* [id number] 02/16/2018 7:23 PM RADIATION DOSE METRICS: Total DLP (mGy-cm): 1689.3 FINDINGS: Liver: There is a diffuse decrease in hepatic parenchymal density, consistent with moderate fatty infiltration. There is no focal abnormality within the liver. Gallbladder and bile ducts: There has been a cholecystectomy. This is new from previous. Pancreas: The pancreas is normal. Spleen: The spleen is normal. Adrenal glands: The adrenal glands are normal. Kidneys and ureters: The kidneys are normal. There is no evidence of hydronephrosis. There is no evidence of renal or ureteral calcifications. Stomach and bowel: There is no evidence of intestinal obstruction. Appendix: Not identified Intraperitoneal space: There is no evidence of free intraperitoneal fluid. Vasculature: Unremarkable. No abdominal aortic aneurysm. Lymph nodes: There is no evidence of lymphadenopathy. Urinary bladder: Unremarkable as visualized. Reproductive: Unremarkable as visualized. Bones/joints: Unremarkable. No acute fracture. Soft tissues: Unremarkable. CT/CT abdomen pelvis w con* [id number] IMPRESSION: 1. Fatty liver 2. Status post cholecystectomy. 3. No acute finding. Radiation Dose CTDIVOL = (mGy): DLP = 1689.3 (mGy-cm)
[2020-11-19 16:48] LABS: Anion Gap 15.2 (5-19); Potassium 4.2 mmol/L (3.5-5.1)
[2020-11-19] MEDS: iohexol 300 mg/mL 100 mL Btl IV (17:09)
[2020-11-19 17:38] VITALS: BP 142/84; PULSE 71; RESP 18; O2SAT 97
[2020-11-19 18:28] VITALS: BP 136/87; PULSE 69; RESP 18; O2SAT 95
== END 2020-11-19 18:28 | disposition home or self-care (01) ==
PROVIDERS: Physician Assistant; Emergency Provider Nurse Practitioner Family; PCP Nurse Practitioner Family
DX: K75.81 Nonalcoholic steatohepatitis (NASH) (principal); K74.69 Other cirrhosis of liver; R10.11 Right upper quadrant pain; J44.9 Chronic obstructive pulmonary disease, unspecified; E11.40 Type 2 diabetes mellitus with diabetic neuropathy, unspecified; E78.5 Hyperlipidemia, unspecified; Z87.891 Personal history of nicotine dependence
CPT/HCPCS: 12345; 74177; 80053; 81003; 85025; 96374; 96375; 99283; J2270; J2405; Q9967

== ENCOUNTER → 2020-11-23 07:55 | Outpatient (BNVA) | payer BC, MEDICAID, SELFPAY | PROVIDERS: PCP Nurse Practitioner Family; Visit Provider Nurse Practitioner Psychiatric/Mental Health | DX: F33.2 Major depressive disorder, recurrent severe without psychotic features (principal); G89.29 Other chronic pain; F41.9 Anxiety disorder, unspecified; F33.1 Major depressive disorder, recurrent, moderate | CPT/HCPCS: 99213 ==

== ENCOUNTER 2021-01-02 09:34 | Emergency (ER) | payer BC, MEDICAID, SELFPAY ==
[2021-01-02 09:53] VITALS: BP 133/83; PULSE 71; RESP 22; TEMP 36.4; O2SAT 94; BMI 43.0
--- NOTE | 2021-01-02 10:08 | ED_ITS ---
HPI - Abdominal Pain General: Chief Complaint: Abdominal Pain Stated Complaint: Liver disease/ pain Time Seen by Provider: 01/02/21 09:56 Source: patient Mode of arrival: ambulatory Limitations: no limitations History of Present Illness: HPI narrative: 55-year-old female is a history of cirrhosis chronic abdominal pain from her cirrhosis. States she had increased pain over the right upper quadrant over the last 3 to 4 days and her pain meds at home is not helping anymore. Pain is currently 7 out of 10. She denies any vomiting or diarrhea. Denies any fevers. Patient has had a cholecystectomy in the past. MD elicited complaint: abdominal pain Associated Symptoms: Denies chills, dysuria and fever(s) Review of Systems Const: Denies: fever(s), chills, body aches or change in appetite Eyes: Denies: blurry vision or eye discomfort ENMT: Denies: throat pain or dental pain Card: Denies: chest pain Resp: Denies: dyspnea GI: Reports: abdominal pain : Denies: dysuria Musc: Denies: neck pain or back pain Skin/Breast: Denies: rash Neuro: Denies: headache(s) Psych: Denies: depression David/Lymph: Denies: easy bruising All/Imm: Denies: urticaria PFSH ED PFSH: Medical History (Updated 01/02/21 @ 11:09 by Debi Huertas MD) Anxiety and depression Chronic back pain greater than 3 months duration Chronic constipation Chronic migraine Chronic nausea COPD with asthma Diabetes mellitus Diabetic neuropathy Encounter for long-term opiate analgesic use Environmental and seasonal allergies Facet arthritis of lumbar region GERD (gastroesophageal reflux disease) History of suicidal ideation HSV-2 infection Hyperlipidemia Hypokalemia Hypomagnesemia 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 Lumbar disc disease with radiculopathy Lung nodule Major depressive disorder, recurrent, moderate Sleeping difficulty Urinary frequency Vitamin D deficiency, unspecified Surgical History Hx of cholecystectomy Hx of exploratory laparotomy abdominal surgery Hx of tonsillectomy Hx of unilateral oophorectomy left benign tumor Family History Mother Stroke maternal grandmother Father Cancer Lung Family/Other Diabetes Uncle Other Breast cancer Colon cancer Family history of thyroid problem Heart disease Ovarian cancer Uterine cancer Social History Smoking and tobacco status: former smoker Quit status (tobacco): has quit using tobacco Year quit tobacco: 1996 - PD x 20 Years Second hand smoke exposure: Yes Alcohol intake: never Counseling given: No Counseling given: No Lives independently: Yes Household members: children Marital status: Current occupational status: unemployed History of recent travel: No Current gender identity: Female Additional social history: - Tobacco use: Former; quit in 1999 Alcohol use: Denies Drug use: Denies Physical Exam Const: COMMON NORMALS: no acute distress, patient oriented x3 and healthy appearing HENMT: COMMON NORMALS: normocephalic and atraumatic HEAD & SCALP: normocephalic and atraumatic Eye: COMMON NORMALS: Equal, round and reactive pupils present and EOMs intact bilaterally PUPIL: Yes Equal, round and reactive pupils present Neck/C-Spine: COMMON NORMALS: full ROM and supple Chest: COMMONS NORMALS: normal inspection of the chest and normal palpation of entire chest wall Resp: COMMON NORMALS: normal respiratory effort, No retractions, No use of accessory muscles and clear to auscultation bilaterally AUSCULTATION: clear to auscultation bilaterally Cardio: COMMON NORMALS: regular rate, regular rhythm and No murmurs present (Cardio) RATE: regular rate RHYTHM: regular rhythm GI: COMMON NORMALS: Normal to inspection, nondistended, normoactive bowel sounds present, Soft to palpation, non-tender and no masses PALPATION: Yes Soft to palpation and Yes Tenderness to palpation present (GI) Details: RUQ Extremity: COMMON NORMALS: normal to inspection and full ROM Neuro: COMMON NORMALS: patient oriented x3, moves all extremities and no focal motor deficits Psych: COMMON NORMALS: mental status grossly normal, Normal thought process present and cooperative THOUGHT PROCESS: Normal thought process present Skin: COMMON NORMALS: no rashes or lesions noted and no wounds GENERAL SKIN EXAM: no rashes or lesions noted Course Vital Signs: Vital signs: Vital Signs Temperature 97.5 F L 01/02/21 09:53 Pulse Rate 64 01/02/21 10:13 Respiratory Rate 18 01/02/21 11:36 Blood Pressure 133/83 01/02/21 10:13 Pulse Oximetry 97 01/02/21 10:22 MDM - Abdominal Pain MDM Narrative: Medical decision making narrative: Tara presents here with abdominal pain that is chronic in nature. Her white count and blood work are all normal here. Her pain is improved and her exam at discharge is benign. I do not believe she needs any further imaging today. She is to follow-up with PCP in 2 to 4 days return if her pain worsens. She understands agrees to plan. Lab Data: Labs: Lab Results 01/02/21 01/02/21 Range/Units 10:16 10:16 WBC 8.7 (4.0-10.0) 10^3/ uL RBC 5.80 H (4.1-5.3) 10^6/u L Hgb 15.1 (11.5-15.3) g/dL Hct 48.7 H (37.0-47.0) % MCV 84.0 (81-99) fL MCH 26.0 L (28.0-34.0) pg MCHC 31.0 (30.0-36.0) g/dL RDW 14.7 (12.1-15.1) % Plt Count 318 (130-400) 10^3/c mm MPV 9.9 (7.4-10.4) fL Neut % (Auto) 51.5 % Lymph % (Auto) 39.4 % Dunn % (Auto) 6.1 % Eos % (Auto) 2.0 % Baso % (Auto) 0.7 % Neut # (Auto) 4.45 (1.8-7.7) 10^3/u L Lymph # (Auto) 3.4 (0.8-4.8) 10^3/u L Dunn # (Auto) 0.5 (0.2-0.9) 10^3/u L Eos # (Auto) 0.2 (0.0-0.8) 10^3/u L Baso # (Auto) 0.1 (0.0-0.1) 10^3/u L Nucleated RBC % (a uto) 0 % Nucleated RBCs # 0.0 /100WBC Sodium 137 (136-145) mmol/L Potassium 4.2 (3.5-5.1) mmol/L Chloride 101 (98-107) mmol/L Carbon Dioxide 27 (22-29) mmol/L Anion Gap 13.2 (5-19) BUN 9 (6-20) mg/dL Creatinine 0.8 (0.5-0.9) mg/dL GFR Calculation 74.5 L (90-130) mL/min Glucose 196 H (65-115) mg/dL Calculated Osmolal ity 288 (285-295) mOsm/k g Calcium 9.3 (8.5-10.5) mg/dL Total Bilirubin 0.2 (0.15-1.2) mg/dL AST 28 (0-32) U/L ALT 28 (0-33) U/L Alkaline Phosphata se 137 H (35-105) IU/L Total Protein 7.5 (6.6-8.7) g/dL Albumin 4.0 (3.5-5.2) g/dL Globulin 3.5 (1.3-4.6) g/dL Lipase 19 (13-60) U/L Discharge Plan Discharge Patient Disposition: Home Clinical Impression: Abdominal pain Qualifiers: Abdominal location: right upper quadrant Qualified Code(s): R10.11 - Right upper quadrant pain Condition: Stable Prescriptions: No Action vitamin E 200 unit capsule 400 unit PO DAILY@0930 RF: 0 terconazole 0.8 % cream 1 appful VAGINAL .nightly Qty: 20 RF: 0 albuterol sulfate 90 mcg/actuation HFA aerosol inhaler 2 puff INHALATION Q6H PRN (Reason: shortness of breath or wheezing) 30 Days Qty: 6.7 RF: 5 cholecalciferol (vitamin D3) 1,250 mcg (50,000 unit) capsule See Rx Instructions .ROUTE .COMPLEX Qty: 4 RF: 2 benzonatate 200 mg capsule 200 mg PO TID PRN (Reason: cough) 30 Days Qty: 90 RF: 2 docusate sodium [Colace] 100 mg capsule 100 mg PO BID PRN (Reason: constipation) 30 Days Qty: 60 RF: 5 paroxetine HCl 40 mg tablet 40 mg PO DAILY@0930 Qty: 30 RF: 2 cefdinir 300 mg capsule 300 mg PO BID 10 Days Qty: 20 RF: 0 cknukbdl-suykxayjh-XZ 3.5-10,000-1 mg/mL-unit/mL-% drops,suspension 4 drp otic (ear) TID 10 Days Qty: 10 RF: 0 cyclobenzaprine 10 mg tablet 10 mg PO BID PRN (Reason: MUSCLE SPASMS) 30 Days Qty: 60 RF: 2 rizatriptan [Maxalt-[employer]] 10 mg tablet,disintegrating See Rx Instructions PO .COMPLEX Qty: 14 RF: 3 fluticasone propionate [Flonase Allergy Relief] 50 mcg/actuation spray,suspension 1 spray intranasal Q12H 30 Days Qty: 15.8 RF: 3 azelastine 137 mcg (0.1 %) aerosol,spray 2 spray intranasal BID 30 Days Qty: 30 RF: 3 albuterol sulfate 2.5 mg /3 mL (0.083 %) solution for nebulization 2.5 mg INHALATION QID PRN (Reason: wheezing) Qty: 180 RF: 2 Ubrelvy 100 mg tablet 100 mg PO ONCE MDD 200 mg PRN (Reason: Migraine ) Qty: 30 RF: 2 oxycodone 5 mg tablet 5 mg PO QID PRN (Reason: pain) 30 Days Qty: 120 RF: 0 sumatriptan succinate 100 mg tablet 100 mg PO Q2H PRN (Reason: migraine headache) Qty: 9 RF: 4 zonisamide [Zonegran] 100 mg capsule 100 mg PO .qhs Qty: 30 RF: 3 Advair Diskus 250-50 mcg/dose blister with device 1 inh INHALATION BID@929,2099 RF: 0 Carafate 1 gram tablet 1 g PO TID@30,1199,2099 RF: 0 simvastatin 80 mg tablet 80 mg PO DAILY@929 RF: 0 pantoprazole 40 mg tablet,delayed release (DR/EC) 40 mg PO BID@929,2099 RF: 0 oxybutynin chloride 5 mg tablet extended release 24hr 5 mg PO DAILY@929 RF: 0 propranolol 20 mg tablet 40 mg PO BID@929,2099 RF: 0 magnesium 200 mg tablet 400 mg PO DAILY@929 RF: 0 melatonin 10 mg tablet 10 mg PO BEDTIME RF: 0 dapagliflozin 10 mg tablet 10 mg PO DAILY@929 RF: 0 potassium chloride 20 mEq tablet extended release 20 meq PO BID@929,2099 RF: 0 Discharge Orders: Discharge ED (Routine); Ordered 01/02/21 Ordered By: Debi Huertas Referrals: Jaleesa Diop, [facility] [Primary Care Provider] - 1-3 days Discharge Diet: Advance as tolerated Discharge Activity: Resume usual activity Patient Instructions: Abdominal Pain (ED) Coding Level of Care Code ED [employer] for Aleidag Fwd Exam Comprehensive
[2021-01-02 10:13] VITALS: BP 133/83; PULSE 64; RESP 18; O2SAT 97
[2021-01-02] MEDS: ondansetron 2 mg/ML SDV 2 mL 4 MG IVP (10:17)
[2021-01-02 10:22] VITALS: RESP 16; O2SAT 97
[2021-01-02] MEDS: HYDROmorphone 1 mg/mL INJ 1 mL IVP (10:22)
[2021-01-02 10:37] LABS: Basophils # 0.1 10^3/uL (0.0-0.1); Basophils % 0.7 %; Eosinophils # 0.2 10^3/uL (0.0-0.8); Hematocrit 48.7 % (37.0-47.0); Hemoglobin 15.1 g/dL (11.5-15.3); Lymphocytes # 3.4 10^3/uL (0.8-4.8); Lymphocytes % 39.4 %; Mean Platelet Volume 9.9 fL (7.4-10.4); Monocytes # 0.5 10^3/uL (0.2-0.9); Monocytes % 6.1 %; Neutrophils # 4.45 10^3/uL (1.8-7.7); Neutrophils % 51.5 %; Nucleated Red Blood Cells % 0 %; Platelet Count 318 10^3/cmm (130-400); Red Cell Distribution Width 14.7 % (12.1-15.1); White Blood Count 8.7 10^3/uL (4.0-10.0)
[2021-01-02 10:56] LABS: Alanine Aminotransferase 28 U/L (0-33); Alkaline Phosphatase 137 IU/L (35-105); Anion Gap 13.2 (5-19); Aspartate Amino Transferase 28 U/L (0-32); Blood Urea Nitrogen 9 mg/dL (6-20); Calcium 9.3 mg/dL (8.5-10.5); Carbon Dioxide 27 mmol/L (22-29); Chloride 101 mmol/L (98-107); Globulin 3.5 g/dL (1.3-4.6); Glomerular Filtration Rate 74.5 mL/min (90-130); Glucose 196 mg/dL (65-115); Lipase 19 U/L (13-60); Osmolality Calculated 288 mOsm/kg (285-295); Potassium 4.2 mmol/L (3.5-5.1); Sodium 137 mmol/L (136-145); Total Bilirubin 0.2 mg/dL (0.15-1.2); Total Protein 7.5 g/dL (6.6-8.7)
[2021-01-02 11:36] VITALS: RESP 18
[2021-01-02] MEDS: morphine 4 mg/mL SDV 1 mL IVP (11:36)
[2021-01-02 11:55] VITALS: BP 106/60; PULSE 65; RESP 18; TEMP 37.2; O2SAT 93
== END 2021-01-02 11:57 | disposition home or self-care (01) ==
PROVIDERS: Emergency Provider Emergency Medicine; PCP Nurse Practitioner Family
DX: R10.11 Right upper quadrant pain (principal); J44.9 Chronic obstructive pulmonary disease, unspecified; E11.40 Type 2 diabetes mellitus with diabetic neuropathy, unspecified; E78.5 Hyperlipidemia, unspecified; Z87.891 Personal history of nicotine dependence
CPT/HCPCS: 80053; 83690; 85025; 96374; 96375; 99283; J1170; J2270; J2405

== ENCOUNTER → 2021-02-02 13:48 | Outpatient (BNVA) | payer BC, SELFPAY | PROVIDERS: PCP Nurse Practitioner Family; Visit Provider Nurse Practitioner Family | DX: E11.9 Type 2 diabetes mellitus without complications (principal); E78.2 Mixed hyperlipidemia | CPT/HCPCS: 80053; 80061; 83036; 84443; 85025 ==

== ENCOUNTER → 2021-02-15 13:52 | Outpatient (BNVA) | payer BC, MEDICAID, SELFPAY | PROVIDERS: PCP Nurse Practitioner Family; Visit Provider Nurse Practitioner Psychiatric/Mental Health | DX: F33.2 Major depressive disorder, recurrent severe without psychotic features (principal); F41.9 Anxiety disorder, unspecified; F33.1 Major depressive disorder, recurrent, moderate; G89.29 Other chronic pain | CPT/HCPCS: 99213 ==

== ENCOUNTER → 2021-05-12 07:49 | Outpatient (BNVA) | payer BC, SELFPAY | PROVIDERS: PCP Nurse Practitioner Family; Visit Provider Nurse Practitioner Psychiatric/Mental Health | DX: F33.1 Major depressive disorder, recurrent, moderate (principal); G89.29 Other chronic pain | CPT/HCPCS: 99213 ==

== ENCOUNTER → 2021-05-16 14:50 | Outpatient (BNVA) | payer BC, MEDICAID, SELFPAY | PROVIDERS: PCP Nurse Practitioner Family; Visit Provider Nurse Practitioner Family | DX: E03.9 Hypothyroidism, unspecified (principal); E78.2 Mixed hyperlipidemia; E11.9 Type 2 diabetes mellitus without complications; G43.709 Chronic migraine without aura, not intractable, without status migrainosus; E87.6 Hypokalemia; R35.0 Frequency of micturition; G47.9 Sleep disorder, unspecified; E83.42 Hypomagnesemia; J45.909 Unspecified asthma, uncomplicated; K59.09 Other constipation; M54.9 Dorsalgia, unspecified; G89.29 Other chronic pain; E55.9 Vitamin D deficiency, unspecified; R05 Cough; J44.9 Chronic obstructive pulmonary disease, unspecified; H00.014 Hordeolum externum left upper eyelid | CPT/HCPCS: 80053; 80061; 83036; 84443; 85025 ==

== ENCOUNTER → 2021-05-26 16:38 | Outpatient (BNVA) | payer BC, MEDICAID, SELFPAY | PROVIDERS: PCP Nurse Practitioner Family; Visit Provider Nurse Practitioner Family | DX: R10.13 Epigastric pain (principal); G43.709 Chronic migraine without aura, not intractable, without status migrainosus; R11.0 Nausea; R42 Dizziness and giddiness; K21.00 Gastro-esophageal reflux disease with esophagitis, without bleeding | CPT/HCPCS: 80053; 84484; 85025; 87635 ==

== ENCOUNTER → 2021-05-27 00:01 | Outpatient (BNVA) | payer BC, MEDICAID, SELFPAY | PROVIDERS: PCP Nurse Practitioner Family; Visit Provider Nurse Practitioner Family | DX: R10.13 Epigastric pain (principal); G43.709 Chronic migraine without aura, not intractable, without status migrainosus; R11.0 Nausea; R42 Dizziness and giddiness; K21.9 Gastro-esophageal reflux disease without esophagitis; Z20.822 Contact with and (suspected) exposure to COVID-19 | CPT/HCPCS: 87635 ==

== ENCOUNTER → 2021-05-31 15:41 | Outpatient (BNVA) | payer BC, MEDICAID, SELFPAY | PROVIDERS: PCP Nurse Practitioner Family; Visit Provider Nurse Practitioner Family | DX: R71.8 Other abnormality of red blood cells (principal); R42 Dizziness and giddiness; E55.9 Vitamin D deficiency, unspecified | CPT/HCPCS: 82607; 82746 ==

== ENCOUNTER 2021-07-12 16:11 | Outpatient (CLI) | payer BC, MEDICAID, SELFPAY ==
--- NOTE | 2021-07-12 16:17 | XR_ITS ---
WS: [id number] XR cervical spine 3V* [id number] REASON FOR EXAM: M54.2 - Cervicalgia FINDINGS: Normal odontoid. No significant focal vertebral body abnormality. The intervertebral disc spaces are relatively well-preserved. Normal facet joints and alignment. XR/XR cervical spine 3V* [id number] IMPRESSION: No significant abnormality.
== END 2021-07-12 16:12 | disposition home or self-care (01) ==
LOC: RAD 16:15
PROVIDERS: PCP Nurse Practitioner Family; Visit Provider Nurse Practitioner Family
DX: M54.2 Cervicalgia (principal); V89.2XXA Person injured in unspecified motor-vehicle accident, traffic, initial encounter
CPT/HCPCS: 72040

== ENCOUNTER → 2021-07-28 11:13 | Outpatient (BNVA) | payer BC, MEDICAID, SELFPAY | PROVIDERS: PCP Nurse Practitioner Family; Visit Provider Nurse Practitioner Family | DX: M79.644 Pain in right finger(s) (principal); M25.531 Pain in right wrist | CPT/HCPCS: 73110; 73130 ==

== ENCOUNTER → 2021-08-11 09:29 | Outpatient (BNVA) | payer BC, SELFPAY | PROVIDERS: PCP Nurse Practitioner Family; Visit Provider Nurse Practitioner Psychiatric/Mental Health | DX: F33.2 Major depressive disorder, recurrent severe without psychotic features; G89.29 Other chronic pain | CPT/HCPCS: 99213 ==

== ENCOUNTER → 2021-11-08 08:20 | Outpatient (BNVA) | payer BC, SELFPAY | PROVIDERS: PCP Nurse Practitioner Family; Visit Provider Nurse Practitioner Psychiatric/Mental Health | DX: F33.1 Major depressive disorder, recurrent, moderate (principal); G89.29 Other chronic pain | CPT/HCPCS: 99213 ==

== ENCOUNTER → 2021-11-29 16:02 | Outpatient (BNVA) | payer BC, SELFPAY | PROVIDERS: PCP Nurse Practitioner Family; Visit Provider Nurse Practitioner Family | DX: N39.0 Urinary tract infection, site not specified (principal); R39.9 Unspecified symptoms and signs involving the genitourinary system | CPT/HCPCS: 81000 ==

== ENCOUNTER → 2021-12-07 14:20 | Outpatient (BNVA) | payer BC, MEDICAID, SELFPAY | PROVIDERS: PCP Nurse Practitioner Family; Visit Provider Nurse Practitioner Family | DX: E11.9 Type 2 diabetes mellitus without complications (principal); R39.9 Unspecified symptoms and signs involving the genitourinary system; F33.2 Major depressive disorder, recurrent severe without psychotic features; R81 Glycosuria; E78.5 Hyperlipidemia, unspecified | CPT/HCPCS: 80053; 80061; 81000; 83036; 84443; 85025 ==

== ENCOUNTER → 2022-01-30 14:37 | Outpatient (BNVA) | payer BC, MEDICAID, SELFPAY | PROVIDERS: PCP Nurse Practitioner Family; Visit Provider Nurse Practitioner Family | DX: E11.9 Type 2 diabetes mellitus without complications (principal); E78.2 Mixed hyperlipidemia; G43.709 Chronic migraine without aura, not intractable, without status migrainosus; E87.6 Hypokalemia; F32.9 Major depressive disorder, single episode, unspecified; R11.0 Nausea; I10 Essential (primary) hypertension | CPT/HCPCS: 80053; 80061; 81025; 83036; 84443; 85025 ==

== ENCOUNTER → 2022-02-21 13:10 | Outpatient (BNVA) | payer BC, MEDICAID, SELFPAY | PROVIDERS: PCP Nurse Practitioner Family; Visit Provider Nurse Practitioner Psychiatric/Mental Health | DX: F33.1 Major depressive disorder, recurrent, moderate (principal); G89.29 Other chronic pain | CPT/HCPCS: 99213 ==

== ENCOUNTER 2022-03-18 15:00 | Emergency (ER) | payer BC, MEDICAID, SELFPAY ==
[2022-03-18 15:18] VITALS: BP 132/81; PULSE 85; RESP 18; TEMP 36.9; O2SAT 94
[2022-03-18] MEDS: diphenhydrAMINE 50 mg/mL SDV 1mL IM (16:48)
[2022-03-18] MEDS: haloperidol inj 5 mg/mL INJ 1 mL IM (16:48)
[2022-03-18] MEDS: dexamethasone 10 mg/mL INJ IM (16:48)
--- NOTE | 2022-03-18 16:48 | ED_ITS ---
Documented by User: Jillian Medina 03/18/22 16:54 HPI - Neck Pain/Injury General: Chief Complaint: Neck Pain/Injury Stated Complaint: Swelling in the back of neck area and head pain Time Seen by Provider: 03/18/22 15:46 History of Present Illness: 56 yo female patient presents to ER with c/o right sided neck pain and states she feels a knot. Pt states she woke up this am with this which then has triggered a migraine. Pt states she has history of migraine and her symptoms are typical for her migraine. Pt denies any n/v/d c/o photophobia. Pt dnies any vision changes or fever. Pt denies any trauma or injury. Associated symptoms: Denies dysphagia, difficulty walking, dizziness or nausea Review of Systems Const: Denies: fever(s), chills, body aches, change in appetite, change in weight, fatigue, malaise or diaphoresis Eyes: Denies: change in vision, blurry vision, blind spots, photophobia, eye discomfort, eye discharge, eye redness, floaters or seeing flashes ENMT: Denies: throat pain, uvular edema, enlarged tonsils, odynophagia, hoarseness, mouth pain, swelling of lips/tongue, oral sores, bleeding gums, dental pain, dry mouth, ear or mastoid pain, ear discharge, change in hearing, tinnitus, disequilibrium, nasal discharge, nasal congestion, post nasal drip or sinus pain Card: Denies: chest pain, palpitations, irregular heart rhythm, edema, swelling of feet/ankles, lightheadedness, syncope, pre-syncope, dyspnea on exertion, orthopnea, leg pain with exertion or acrocyanosis Resp: Denies: dyspnea, productive cough, non-productive cough, wheezing, stridor, pain on inspiration, change in phlegm color, hemoptysis or chest congestion GI: Denies: abdominal pain, nausea, vomiting, hematemesis, dysphagia, diarrhea, constipation, GI cramping, change in bowel habits or rectal pain : Denies: flank pain, difficulty voiding, dysuria, urinary frequency, urinary urgency, urinary hesitancy or hematuria Musc: Denies: back pain, extremity pain, extremity swelling, joint pain, joint swelling, joint redness, joint warmth or deformity Skin/Breast: Denies: rash, pruritus, erythema, sores, new lesions, changes in skin color or dry skin Neuro: Denies: numbness in extremities, weakness in extremities, sensory changes, lack of coordination, difficulty walking, frequent falls, dizziness, vertigo, confusion, behavioral changes, Slurred speech present, difficulty communicating thoughts or seizure-like activity Psych: Denies: anxiety, depression, suicidal ideation or homicidal ideation Endo: Denies: polyuria, polydipsia, tired all the time, cold intolerance, excessive sweating, flushing, hot flashes or heat intolerance David/Lymph: Denies: easy bruising, easy bleeding, petechiae, purpura, enlarged lymph nodes or tender lymph nodes All/Imm: Denies: urticaria, throat swelling, tongue swelling, facial swelling, acute wheezing or itchy eyes 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 Lumbar disc disease with radiculopathy Lung nodule Major depressive disorder, recurrent, moderate Psychiatric care Sleeping difficulty Urinary frequency Vitamin D deficiency, unspecified Surgical History Hx of cholecystectomy Hx of exploratory laparotomy abdominal surgery Hx of tonsillectomy Hx of unilateral oophorectomy left benign tumor Family History Mother Stroke maternal grandmother Father Cancer Lung Family/Other Diabetes Uncle Other Breast cancer Colon cancer Family history of thyroid problem Heart disease Ovarian cancer Uterine cancer Social History Smoking and tobacco status: former smoker Quit status (tobacco): has quit using tobacco Year quit tobacco: 1996 - PD x 20 Years Second hand smoke exposure: Yes Alcohol intake: never Counseling given: No Counseling given: No Lives independently: Yes Household members: children Marital status: Current occupational status: unemployed History of recent travel: No Current gender identity: Female Additional social history: - Tobacco use: Former; quit in 1999 Alcohol use: Denies Drug use: Denies Physical Exam Const: COMMON NORMALS: no acute distress, average body habitus, patient oriented x3, no limitations, healthy appearing, alert and well nourished HENMT: COMMON NORMALS: normocephalic, atraumatic, hearing grossly normal bilaterally, external ears normal, EAC's normal, moist oral mucous membranes, oropharynx normal, dentition normal and gingiva normal HEAD & SCALP: normocephalic and atraumatic EXTERNAL EAR: Yes external ears normal EXTERNAL AUDITORY CANAL: EAC's normal THROAT: no uvular edema Eye: COMMON NORMALS: Equal, round and reactive pupils present, EOMs intact bilaterally, conjunctivae normal and no scleral icterus CONJUNCTIVA: Yes conjunctivae normal PUPIL: Yes Equal, round and reactive pupils present Neck/C-Spine: COMMON NORMALS: full ROM, no lymphadenopathy, supple, no meningeal signs, no JVD, Thyroid normal and No carotid bruits THYROID: Thyroid normal OTHER: tenderness to right lateral side Chest: COMMONS NORMALS: normal inspection of the chest and normal palpation of entire chest wall Resp: COMMON NORMALS: normal respiratory effort, No retractions, No use of accessory muscles, clear to auscultation bilaterally and percussion normal AUSCULTATION: clear to auscultation bilaterally PERCUSSION: percussion normal Cardio: COMMON NORMALS: no JVD, regular rate and regular rhythm RATE: regular rate RHYTHM: regular rhythm : COMMON NORMALS: Yes no CVA tenderness BLADDER/KIDNEY EXAM: Yes no CVA tenderness Back/Pelvis: COMMON NORMALS: no CVA tenderness, thoracic and lumbar spine normal to inspection, no thoracic nor lumbar tenderness and thoraco-lumbar ROM normal Neuro: COMMON NORMALS: patient oriented x3, CN's II-XII intact bilaterally, moves all extremities, no focal motor deficits, no sensory deficits noted and gait normal SENSORIUM/ORIENTATION: Yes alert MENINGEAL SIGNS: Yes no meningeal signs Psych: COMMON NORMALS: mental status grossly normal, Normal thought process present, cooperative, normal affect, speech normal, activity/motor behavior normal, denies hallucinations, denies homicidal ideation and denies suicidal ideation SPEECH: Yes normal speech THOUGHT PROCESS: Normal thought process present Skin: COMMON NORMALS: no rashes or lesions noted, no wounds and turgor normal GENERAL SKIN EXAM: no rashes or lesions noted and turgor normal Course Vital Signs: Vital signs: Vital Signs Temperature 98.5 F 03/18/22 15:18 Pulse Rate 85 03/18/22 15:18 Respiratory Rate 16 03/18/22 18:02 Blood Pressure 132/81 03/18/22 15:18 Pulse Oximetry 94 03/18/22 15:18 MDM - Neck Pain/Injury Medical Decision Making Patient is well appearing non toxic and in no acute distress. 56 yo female patient presents to ER with c/o right sided neck pain and states she feels a knot. Pt states she woke up this am with this which then has triggered a migraine. Pt states she has history of migraine and her symptoms are typical for her migraine. Pt denies any n/v/d c/o photophobia. Pt dnies any vision changes or fever. Pt denies any trauma or injury. I do not palpate any lumps, knots or swollen lymphs in area of pain this feels more musculoskeletal. I i will treat patients migraine and give muscle relaxer and reevaluate for improvement Discharge Plan Discharge Patient Disposition: Home Clinical Impression: Strain of neck muscle Qualifiers: Encounter type: initial encounter Qualified Code(s): S16.1XXA - Strain of muscle, fascia and tendon at neck level, initial encounter Condition: Stable Prescriptions: New meloxicam 15 mg tablet 15 mg PO DAILY PRN (Reason: pain) Qty: 20 0RF cyclobenzaprine 10 mg tablet 10 mg PO BID PRN (Reason: muscle spasm and pain) Qty: 20 0RF No Action vitamin E 200 unit capsule 400 unit PO DAILY@0930 0RF terconazole 0.8 % cream 1 appful VAGINAL .nightly Qty: 20 0RF (DME) 4 PRONG CANE, [id number] See Rx Instructions .Route .MEDSUPPLY Qty: 1 0RF Rx Instructions: As directed sucralfate [Carafate] 100 mg/mL suspension 10 ml PO QID Qty: 1000 2RF Rx Instructions: 1 hour before meals cannot swallow pills rizatriptan [Maxalt-CREDIT AUTHORIZER] 10 mg tablet,disintegrating See Rx Instructions PO .COMPLEX Qty: 14 3RF Rx Instructions: take 1 tab at onset of headache; if no relief may repeat 1 tab after at least 2 hrs; max = 2 tabs/24 hr PO propranolol 40 mg tablet 40 mg PO BID 30 Days Qty: 60 2RF simvastatin 80 mg tablet 80 mg PO DAILY 30 Days Qty: 30 2RF potassium chloride 20 mEq tablet extended release 20 meq PO BID 30 Days Qty: 60 2RF oxybutynin chloride 5 mg tablet extended release 24hr 5 mg PO DAILY 30 Days Qty: 30 2RF metformin 500 mg tablet 500 mg PO BID 30 Days Qty: 60 2RF melatonin 10 mg tablet 10 mg PO BEDTIME 30 Days Qty: 30 2RF magnesium 200 mg tablet 400 mg PO DAILY 30 Days Qty: 60 2RF levothyroxine 25 mcg capsule 25 mcg PO DAILY 30 Days Qty: 30 2RF Advair Diskus 250-50 mcg/dose blister with device 1 inh INHALATION BID 30 Days Qty: 60 2RF docusate sodium [Colace] 100 mg capsule 100 mg PO BID PRN (Reason: constipation) 30 Days Qty: 60 5RF dapagliflozin 10 mg tablet 10 mg PO DAILY 30 Days Qty: 30 2RF cyclobenzaprine 10 mg tablet 10 mg PO BID PRN (Reason: MUSCLE SPASMS) 30 Days Qty: 60 2RF cholecalciferol (vitamin D3) 1,250 mcg (50,000 unit) capsule See Rx Instructions .ROUTE .COMPLEX Qty: 4 2RF Dose Instruction: TAKE ONE CAPSULE BY MOUTH ONCE WEEKLY Rx Instructions: TAKE ONE CAPSULE BY MOUTH ONCE WEEKLY ON FRIDAYS benzonatate 200 mg capsule 200 mg PO TID PRN (Reason: cough) 30 Days Qty: 90 2RF amitriptyline 50 mg tablet 50 mg PO DAILY Qty: 30 2RF albuterol sulfate 90 mcg/actuation HFA aerosol inhaler 2 puff INHALATION Q6H PRN (Reason: shortness of breath or wheezing) 30 Days Qty: 6.7 2RF Trulicity 0.75 mg/0.5 mL pen injector 0.75 mg SUBCUT .weekly Qty: 2 2RF paroxetine HCl 40 mg tablet 40 mg PO DAILY 30 Days Qty: 30 2RF hydroxyzine pamoate 25 mg capsule 25 mg PO QID PRN (Reason: anxiety) Qty: 60 2RF Rx Instructions: Take 1 capsule up to 4 times daily, if needed for anxiety symptoms: Monitor for drowsiness/sleepiness ondansetron 8 mg tablet,disintegrating 8 mg PO Q12H 30 Days Qty: 60 2RF pantoprazole 40 mg tablet,delayed release (DR/EC) 40 mg PO BID 30 Days Qty: 60 2RF albuterol sulfate 2.5 mg /3 mL (0.083 %) solution for nebulization 2.5 mg INHALATION QID PRN (Reason: wheezing) Qty: 180 2RF Ubrelvy 100 mg tablet 100 mg PO ONCE MDD 200 mg PRN (Reason: Migraine ) Qty: 30 2RF Rx Instructions: Take one tablet as needed at onset of headache, may repeat once in 24 hours. oxycodone 5 mg tablet 5 mg PO QID PRN (Reason: pain) 30 Days Qty: 120 0RF zonisamide [Zonegran] 100 mg capsule 100 mg PO .qhs Qty: 30 3RF lorazepam [Ativan] 1 mg tablet 1 mg PO DAILY Qty: 1 0RF Rx Instructions: Take 30 minutes before procedure. Discharge Orders: Discharge ED (Routine); Ordered 03/18/22 Ordered By: Elder Michaud Referrals: Jaleesa Diop FNP-C [Primary Care Provider] - Discharge Diet: Regular Discharge Activity: Increase activity as tolerated Patient Instructions: Acute Neck Pain (ED) Activity Restrictions/Additional Instructions: Follow-up with medical provider as directed in the next 5 to 7 days re evaluation. Take medications as prescribed. Apply cold pack on neck multiple times a day for approximately 10 to 15 minutes at a time to help with symptoms. return to the ER or your medical provider if condition worsens. Please read and understand discharge instructions. Thank you for choosing [facility] for your healthcare needs today. Please realize this is an emergency room and that we are providing you with a medical screening exam and this may not be complete and all inclusive of all the testing and or work up that you may need to determine your ailment or severity of your illness. It is very important that you follow up as instructed or that you return to the Emergency Department should you have concerns or if your condition changes or worsens in any way. Sign Out Sign Out Data: Patient Sign Out occurred on 03/18/22 at 17:12. Patient's care was discussed, and care was transferred from to WEI Rabago. Coding Level of Care Code ED Pan Operator for Chg Fwd Exam Comprehensive Documented by User: WEI Rabago 03/18/22 19:26 HPI - Neck Pain/Injury General: Chief Complaint: Neck Pain/Injury Stated Complaint: Swelling in the back of neck area and head pain Time Seen by Provider: 03/18/22 15:46 History of Present Illness: 56 yo female patient presents to ER with c/o right sided neck pain and states she feels a knot. Pt states she woke up this am with this which then has triggered a migraine. Pt states she has history of migraine and her symptoms are typical for her migraine. Pt denies any n/v/d c/o photophobia. Pt denies any vision changes or fever. Pt denies any trauma or injury. 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 Lumbar disc disease with radiculopathy Lung nodule Major depressive disorder, recurrent, moderate Psychiatric care Sleeping difficulty Urinary frequency Vitamin D deficiency, unspecified Surgical History Hx of cholecystectomy Hx of exploratory laparotomy abdominal surgery Hx of tonsillectomy Hx of unilateral oophorectomy left benign tumor Family History Mother Stroke maternal grandmother Father Cancer Lung Family/Other Diabetes Uncle Other Breast cancer Colon cancer Family history of thyroid problem Heart disease Ovarian cancer Uterine cancer Social History Smoking and tobacco status: former smoker Quit status (tobacco): has quit using tobacco Year quit tobacco: 1996 - PD x 20 Years Second hand smoke exposure: Yes Alcohol intake: never Counseling given: No Counseling given: No Lives independently: Yes Household members: children Marital status: Current occupational status: unemployed History of recent travel: No Current gender identity: Female Additional social history: - Tobacco use: Former; quit in 1999 Alcohol use: Denies Drug use: Denies Course Vital Signs: Vital signs: Vital Signs Temperature 98.5 F 03/18/22 15:18 Pulse Rate 85 03/18/22 15:18 Respiratory Rate 16 03/18/22 18:02 Blood Pressure 132/81 03/18/22 15:18 Pulse Oximetry 94 03/18/22 15:18 MDM - Neck Pain/Injury Medical Decision Making Patient is well appearing non toxic and in no acute distress. 56 yo female patient presents to ER with c/o right sided neck pain and states she feels a knot. Pt states she woke up this am with this which then has triggered a migraine. Pt states she has history of migraine and her symptoms are typical for her migraine. Pt denies any n/v/d c/o photophobia. Pt dnies any vision changes or fever. Pt denies any trauma or injury. I do not palpate any lumps, knots or swollen lymphs in area of pain this feels more musculoskeletal. I will treat patients migraine and give muscle relaxer and reevaluate for improvement. Patient was given some IM morphine to help with pain and she was stable for discharge home. She is diagnosed with neck muscle strain discharged home with a prescription for some meloxicam and a muscle relaxer. Return to ED precautions given. Follow-up with PCP in the next week for reevaluation. Patient understood and agreed with plan. Discharge Plan Discharge Patient Disposition: Home Clinical Impression: Strain of neck muscle Qualifiers: Encounter type: initial encounter Qualified Code(s): S16.1XXA - Strain of muscle, fascia and tendon at neck level, initial encounter Condition: Stable Prescriptions: New meloxicam 15 mg tablet 15 mg PO DAILY PRN (Reason: pain) Qty: 20 0RF cyclobenzaprine 10 mg tablet 10 mg PO BID PRN (Reason: muscle spasm and pain) Qty: 20 0RF No Action vitamin E 200 unit capsule 400 unit PO DAILY@0930 0RF terconazole 0.8 % cream 1 appful VAGINAL .nightly Qty: 20 0RF (DME) 4 PRONG CANE, E0105 See Rx Instructions .Route .MEDSUPPLY Qty: 1 0RF Rx Instructions: As directed sucralfate [Carafate] 100 mg/mL suspension 10 ml PO QID Qty: 1000 2RF Rx Instructions: 1 hour before meals cannot swallow pills rizatriptan [Maxalt-CREDIT AUTHORIZER] 10 mg tablet,disintegrating See Rx Instructions PO .COMPLEX Qty: 14 3RF Rx Instructions: take 1 tab at onset of headache; if no relief may repeat 1 tab after at least 2 hrs; max = 2 tabs/24 hr PO propranolol 40 mg tablet 40 mg PO BID 30 Days Qty: 60 2RF simvastatin 80 mg tablet 80 mg PO DAILY 30 Days Qty: 30 2RF potassium chloride 20 mEq tablet extended release 20 meq PO BID 30 Days Qty: 60 2RF oxybutynin chloride 5 mg tablet extended release 24hr 5 mg PO DAILY 30 Days Qty: 30 2RF metformin 500 mg tablet 500 mg PO BID 30 Days Qty: 60 2RF melatonin 10 mg tablet 10 mg PO BEDTIME 30 Days Qty: 30 2RF magnesium 200 mg tablet 400 mg PO DAILY 30 Days Qty: 60 2RF levothyroxine 25 mcg capsule 25 mcg PO DAILY 30 Days Qty: 30 2RF Advair Diskus 250-50 mcg/dose blister with device 1 inh INHALATION BID 30 Days Qty: 60 2RF docusate sodium [Colace] 100 mg capsule 100 mg PO BID PRN (Reason: constipation) 30 Days Qty: 60 5RF dapagliflozin 10 mg tablet 10 mg PO DAILY 30 Days Qty: 30 2RF cyclobenzaprine 10 mg tablet 10 mg PO BID PRN (Reason: MUSCLE SPASMS) 30 Days Qty: 60 2RF cholecalciferol (vitamin D3) 1,250 mcg (50,000 unit) capsule See Rx Instructions .ROUTE .COMPLEX Qty: 4 2RF Dose Instruction: TAKE ONE CAPSULE BY MOUTH ONCE WEEKLY Rx Instructions: TAKE ONE CAPSULE BY MOUTH ONCE WEEKLY ON FRIDAYS benzonatate 200 mg capsule 200 mg PO TID PRN (Reason: cough) 30 Days Qty: 90 2RF amitriptyline 50 mg tablet 50 mg PO DAILY Qty: 30 2RF albuterol sulfate 90 mcg/actuation HFA aerosol inhaler 2 puff INHALATION Q6H PRN (Reason: shortness of breath or wheezing) 30 Days Qty: 6.7 2RF Trulicity 0.75 mg/0.5 mL pen injector 0.75 mg SUBCUT .weekly Qty: 2 2RF paroxetine HCl 40 mg tablet 40 mg PO DAILY 30 Days Qty: 30 2RF hydroxyzine pamoate 25 mg capsule 25 mg PO QID PRN (Reason: anxiety) Qty: 60 2RF Rx Instructions: Take 1 capsule up to 4 times daily, if needed for anxiety symptoms: Monitor for drowsiness/sleepiness ondansetron 8 mg tablet,disintegrating 8 mg PO Q12H 30 Days Qty: 60 2RF pantoprazole 40 mg tablet,delayed release (DR/EC) 40 mg PO BID 30 Days Qty: 60 2RF albuterol sulfate 2.5 mg /3 mL (0.083 %) solution for nebulization 2.5 mg INHALATION QID PRN (Reason: wheezing) Qty: 180 2RF Ubrelvy 100 mg tablet 100 mg PO ONCE MDD 200 mg PRN (Reason: Migraine ) Qty: 30 2RF Rx Instructions: Take one tablet as needed at onset of headache, may repeat once in 24 hours. oxycodone 5 mg tablet 5 mg PO QID PRN (Reason: pain) 30 Days Qty: 120 0RF zonisamide [Zonegran] 100 mg capsule 100 mg PO .qhs Qty: 30 3RF lorazepam [Ativan] 1 mg tablet 1 mg PO DAILY Qty: 1 0RF Rx Instructions: Take 30 minutes before procedure. Discharge Orders: Discharge ED (Routine); Ordered 03/18/22 Ordered By: Elder Michaud Referrals: Jaleesa Diop FNP-C [Primary Care Provider] - Discharge Diet: Regular Discharge Activity: Increase activity as tolerated Patient Instructions: Acute Neck Pain (ED) Activity Restrictions/Additional Instructions: Follow-up with medical provider as directed in the next 5 to 7 days reevaluation. Take medications as prescribed. Apply cold pack on neck multiple times a day for approximately 10 to 15 minutes at a time to help with symptoms. return to the ER or your medical provider if condition worsens. Please read and understand discharge instructions. Thank you for choosing [facility] for your healthcare needs today. Please realize this is an emergency room and that we are providing you with a medical screening exam and this may not be complete and all inclusive of all the testing and or work up that you may need to determine your ailment or severity of your illness. It is very important that you follow up as instructed or that you return to the Emergency Department should you have concerns or if your condition changes or worsens in any way. Sign Out Sign Out Data: Patient Sign Out occurred on 03/18/22 at 17:12. Patient's care was discussed, and care was transferred from to WEI Rabago. Coding Level of Care Code ED Pan Operator for Robbi Fwd Exam Comprehensive
[2022-03-18] MEDS: cyclobenzaprine 10 mg Tablet PO (17:11)
[2022-03-18 18:02] VITALS: RESP 16
[2022-03-18] MEDS: morphine 4 mg/mL SDV 1 mL IM (18:02)
== END 2022-03-18 18:30 | disposition home or self-care (01) ==
PROVIDERS: Emergency Provider Physician Assistant; PCP Nurse Practitioner Family
DX: S16.1XXA Strain of muscle, fascia and tendon at neck level, initial encounter (principal); X58.XXXA Exposure to other specified factors, initial encounter
CPT/HCPCS: 96372; 99284; J1100; J1200; J1630; J2270

== ENCOUNTER 2022-04-07 21:17 | Emergency (ER) | payer BC, MEDICAID, SELFPAY ==
[2022-04-07 21:33] VITALS: PULSE 65; RESP 18; TEMP 37; O2SAT 95; BMI 43.0
--- NOTE | 2022-04-07 23:11 | CTR_ITS ---
PROCEDURE INFORMATION: Exam: CT Abdomen And Pelvis Without Contrast Exam date and time: 04/08/2022 12:08 AM Age: 56 years old Clinical indication: Abdominal pain; Localized; Right upper quadrant (ruq); Prior surgery; Surgery type: Bilat oophorectomy; Patient HX: C/O ruq pain; Additional info: Abd pain TECHNIQUE: Imaging protocol: Computed tomography of the abdomen and pelvis without contrast. Radiation optimization: All CT scans at this facility use at least one of these dose optimization techniques: automated exposure control; mA and/or kV adjustment per patient size (includes targeted exams where dose is matched to clinical indication); or iterative reconstruction. COMPARISON: CT abdomen pelvis w con* [id number] 11/19/2020 4:59 PM RADIATION DOSE METRICS: Total DLP (mGy-cm): 1627.46 FINDINGS: Diaphragm: Elevated left diaphragm. Liver: Normal. No mass. Gallbladder and bile ducts: Cholecystectomy. Unremarkable biliary system. Pancreas: Normal. No ductal dilation. Spleen: Normal. No splenomegaly. Adrenal glands: Normal. No mass. Kidneys and ureters: Normal. No hydronephrosis. Stomach and bowel: Unremarkable. No obstruction. No mucosal thickening. Appendix: No evidence of appendicitis. Intraperitoneal space: Unremarkable. No free air. No significant fluid collection. Vasculature: Unremarkable. No abdominal aortic aneurysm. Lymph nodes: Unremarkable. No enlarged lymph nodes. Urinary bladder: Unremarkable as visualized. Reproductive: Unremarkable as visualized. Bones/joints: Unremarkable. No acute fracture. Soft tissues: Unremarkable. CT/CT abdomen pelvis wo con [id number] IMPRESSION: Negative for acute abdominopelvic pathology.
--- NOTE | 2022-04-07 23:14 | W.ED.ABDPA2 ---
HPI - Abdominal Pain General: Chief Complaint: Abdominal Pain Stated Complaint: right upper abdomen pain Time Seen by Provider: 04/07/22 22:59 Source: patient Mode of arrival: ambulatory Limitations: no limitations History of Present Illness: 56-year-old female has a history of fatty liver along with cirrhosis states she been having some right upper quadrant belly pain over the last 2 days. States that pain is sharp in nature and rates it a 6 out of 10 currently she has had some nausea denies any fevers. She denies any worsening improving factors. Denies any chest pain or radiation of her pain. Associated Symptoms: Denies chills, dysuria and fever(s) Review of Systems Const: Denies: fever(s), chills, body aches or change in appetite Eyes: Denies: blurry vision or eye discomfort ENMT: Denies: throat pain or dental pain Card: Denies: chest pain Resp: Denies: dyspnea GI: Reports: abdominal pain : Denies: dysuria Musc: Denies: neck pain or back pain Skin/Breast: Denies: rash Neuro: Denies: headache(s) Psych: Denies: depression David/Lymph: Denies: easy bruising All/Imm: Denies: urticaria 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 Lumbar disc disease with radiculopathy Lung nodule Major depressive disorder, recurrent, moderate Psychiatric care Sleeping difficulty Urinary frequency Vitamin D deficiency, unspecified Surgical History Hx of cholecystectomy Hx of exploratory laparotomy abdominal surgery Hx of tonsillectomy Hx of unilateral oophorectomy left benign tumor Family History Mother Stroke maternal grandmother Father Cancer Lung Family/Other Diabetes Uncle Other Breast cancer Colon cancer Family history of thyroid problem Heart disease Ovarian cancer Uterine cancer Social History Smoking and tobacco status: former smoker Quit status (tobacco): has quit using tobacco Year quit tobacco: 1996 - 1PPD x 20 Years Second hand smoke exposure: Yes Alcohol intake: never Counseling given: No Counseling given: No Lives independently: Yes Household members: children Marital status: Current occupational status: unemployed History of recent travel: No Current gender identity: Female Additional social history: - Tobacco use: Former; quit in 1999 Alcohol use: Denies Drug use: Denies Physical Exam Const: COMMON NORMALS: no acute distress, patient oriented x3 and healthy appearing HENMT: COMMON NORMALS: normocephalic and atraumatic HEAD & SCALP: normocephalic and atraumatic Eye: COMMON NORMALS: Equal, round and reactive pupils present and EOMs intact bilaterally PUPIL: Yes Equal, round and reactive pupils present Neck/C-Spine: COMMON NORMALS: full ROM and supple Chest: COMMONS NORMALS: normal inspection of the chest and normal palpation of entire chest wall Resp: COMMON NORMALS: normal respiratory effort, No retractions, No use of accessory muscles and clear to auscultation bilaterally AUSCULTATION: clear to auscultation bilaterally Cardio: COMMON NORMALS: regular rate, regular rhythm and No murmurs present (Cardio) RATE: regular rate RHYTHM: regular rhythm GI: COMMON NORMALS: Normal to inspection, nondistended, normoactive bowel sounds present, Soft to palpation and no masses PALPATION: Yes Soft to palpation and Yes Tenderness to palpation present (GI) Details: RUQ Extremity: COMMON NORMALS: normal to inspection and full ROM Neuro: COMMON NORMALS: patient oriented x3, moves all extremities and no focal motor deficits Psych: COMMON NORMALS: mental status grossly normal, Normal thought process present and cooperative THOUGHT PROCESS: Normal thought process present Skin: COMMON NORMALS: no rashes or lesions noted and no wounds GENERAL SKIN EXAM: no rashes or lesions noted Course Vital Signs: Vital signs: Vital Signs Temperature 98.6 F 04/07/22 21:33 Pulse Rate 65 04/07/22 21:33 Respiratory Rate 18 04/07/22 21:33 Pulse Oximetry 95 04/07/22 21:33 MDM - Abdominal Pain Medical Decision Making Patient presents with abdominal pain she is well-appearing here pain is improved CT abdomen shows no acute findings blood work here is normal as well. She is stable for discharge she is to follow-up with PCP and return if worsening she understands and agrees to plan. Lab Data : 04/07/22 23:58 04/08/22 00:38 Labs/Radiology: Radiology Impressions Abdomen/Pelvis CT 04/07/22 23:11 IMPRESSION: Negative for acute abdominopelvic pathology. Laboratory Results WBC 11.1 10^3/uL (4.0-10.0) H 04/07/22 23:58 Corrected WBC Cancelled 04/07/22 23:35 RBC 5.47 10^6/uL (4.1-5.3) H 04/07/22 23:58 Hgb 13.9 g/dL (11.5-15.3) 04/07/22 23:58 Hct 42.3 % (37.0-47.0) 04/07/22 23:58 MCV 77.3 fl (81-99) L 04/07/22 23:58 MCH 25.4 pg (28.0-34.0) L 04/07/22 23:58 MCHC 32.9 g/dL (30.0-36.0) 04/07/22 23:58 RDW 14.6 % (12.1-15.1) 04/07/22 23:58 Plt Count 332 10^3/cmm (130-400) 04/07/22 23:58 MPV 9.4 fL (7.4-10.4) 04/07/22 23:58 Gran % Cancelled 04/07/22 23:35 Neut % (Auto) 53.0 % 04/07/22 23:58 Lymph % (Auto) 38.6 % 04/07/22 23:58 Pender % (Auto) 5.9 % 04/07/22 23:58 Eos % (Auto) 1.4 % 04/07/22 23:58 Baso % (Auto) 0.6 % 04/07/22 23:58 Neut # (Auto) 5.88 10^3/uL (1.8-7.7) 04/07/22 23:58 Lymph # (Auto) 4.3 10^3/uL (0.8-4.8) 04/07/22 23:58 Pender # (Auto) 0.7 10^3/uL (0.2-0.9) 04/07/22 23:58 Eos # (Auto) 0.2 10^3/uL (0.0-0.8) 04/07/22 23:58 Baso # (Auto) 0.1 10^3/uL (0.0-0.1) 04/07/22 23:58 Absolute Gran (auto) Cancelled 04/07/22 23:35 Nucleated RBC % (auto) 0 % 04/07/22 23:58 Nucleated RBCs # 0.0 /100WBC 04/07/22 23:58 Sodium 138 mmol/L (136-145) 04/08/22 00:38 Potassium 4.2 mmol/L (3.5-5.1) 04/08/22 00:38 Chloride 99 mmol/L (98-107) 04/08/22 00:38 Carbon Dioxide 31 mmol/L (22-29) H 04/08/22 00:38 Anion Gap 12.2 (5-19) 04/08/22 00:38 BUN 11 mg/dL (6-20) 04/08/22 00:38 Creatinine 0.7 mg/dL (0.5-0.9) 04/08/22 00:38 GFR Calculation 86.6 mL/min (90-130) L 04/08/22 00:38 Glucose 138 mg/dL (65-115) H 04/08/22 00:38 Calculated Osmolality 288 mOsm/kg (285-295) 04/08/22 00:38 Calcium 9.2 mg/dL (8.5-10.5) 04/08/22 00:38 Total Bilirubin 0.2 mg/dL (0.15-1.2) 04/08/22 00:38 AST 27 U/L (0-32) 04/08/22 00:38 ALT 27 U/L (0-33) 04/08/22 00:38 Alkaline Phosphatase 104 IU/L (35-105) 04/08/22 00:38 Total Protein 6.7 g/dL (6.6-8.7) 04/08/22 00:38 Albumin 3.8 g/dL (3.5-5.2) 04/08/22 00:38 Globulin 2.9 g/dL (1.3-4.6) 04/08/22 00:38 Lipase 36 U/L (13-60) 04/08/22 00:38 Urine Color Yellow (Yellow) 04/07/22 23:30 Urine Appearance Clear (CLEAR) 04/07/22 23:30 Urine pH 5 (5-7) 04/07/22 23:30 Ur Specific [place] 1.020 (1.005-1.030) 04/07/22 23:30 Urine Protein Neg (Negative) 04/07/22 23:30 Urine Glucose (UA) Norm (Normal) 04/07/22 23:30 Urine Ketones Negative (Negative) 04/07/22 23:30 Urine Blood Neg (Negative) 04/07/22 23:30 Urine Nitrate Negative (Negative) 04/07/22 23:30 Urine Bilirubin Neg (Negative) 04/07/22 23:30 Urine Urobilinogen Norm mg/dL (Negative) 04/07/22 23:30 Ur Leukocyte Esterase 1+ (Negative) H 04/07/22 23:30 Urine RBC 0-4 /hpf (0-2) H 04/07/22 23:30 Urine WBC 15-25 /hpf (0-5) H 04/07/22 23:30 Ur Squamous Epith Cells 15-25 /hpf (0-5) H 04/07/22 23:30 Amorphous Sediment Not Reportable 04/07/22 23:30 Urine Bacteria Trace /hpf (NONE) 04/07/22 23:30 Urine Mucus 1+ /hpf 04/07/22 23:30 Discharge Plan Discharge Patient Disposition: Home Clinical Impression: Abdominal pain Qualifiers: Abdominal location: unspecified location Qualified Code(s): R10.9 - Unspecified abdominal pain Condition: Stable Prescriptions: No Action vitamin E 200 unit capsule 400 unit PO DAILY@0930 0RF terconazole 0.8 % cream 1 appful VAGINAL .nightly Qty: 20 0RF (DME) 4 PRONG CANE, E0105 See Rx Instructions .Route .MEDSUPPLY Qty: 1 0RF Rx Instructions: As directed sucralfate [Carafate] 100 mg/mL suspension 10 ml PO QID Qty: 1000 2RF Rx Instructions: 1 hour before meals cannot swallow pills rizatriptan [Maxalt-VETERINARY ATTENDANT] 10 mg tablet,disintegrating See Rx Instructions PO .COMPLEX Qty: 14 3RF Rx Instructions: take 1 tab at onset of headache; if no relief may repeat 1 tab after at least 2 hrs; max = 2 tabs/24 hr PO propranolol 40 mg tablet 40 mg PO BID 30 Days Qty: 60 2RF simvastatin 80 mg tablet 80 mg PO DAILY 30 Days Qty: 30 2RF potassium chloride 20 mEq tablet extended release 20 meq PO BID 30 Days Qty: 60 2RF oxybutynin chloride 5 mg tablet extended release 24hr 5 mg PO DAILY 30 Days Qty: 30 2RF metformin 500 mg tablet 500 mg PO BID 30 Days Qty: 60 2RF melatonin 10 mg tablet 10 mg PO BEDTIME 30 Days Qty: 30 2RF magnesium 200 mg tablet 400 mg PO DAILY 30 Days Qty: 60 2RF levothyroxine 25 mcg capsule 25 mcg PO DAILY 30 Days Qty: 30 2RF Advair Diskus 250-50 mcg/dose blister with device 1 inh INHALATION BID 30 Days Qty: 60 2RF docusate sodium [Colace] 100 mg capsule 100 mg PO BID PRN (Reason: constipation) 30 Days Qty: 60 5RF dapagliflozin 10 mg tablet 10 mg PO DAILY 30 Days Qty: 30 2RF cyclobenzaprine 10 mg tablet 10 mg PO BID PRN (Reason: MUSCLE SPASMS) 30 Days Qty: 60 2RF cholecalciferol (vitamin D3) 1,250 mcg (50,000 unit) capsule See Rx Instructions .ROUTE .COMPLEX Qty: 4 2RF Dose Instruction: TAKE ONE CAPSULE BY MOUTH ONCE WEEKLY Rx Instructions: TAKE ONE CAPSULE BY MOUTH ONCE WEEKLY ON FRIDAYS benzonatate 200 mg capsule 200 mg PO TID PRN (Reason: cough) 30 Days Qty: 90 2RF amitriptyline 50 mg tablet 50 mg PO DAILY Qty: 30 2RF albuterol sulfate 90 mcg/actuation HFA aerosol inhaler 2 puff INHALATION Q6H PRN (Reason: shortness of breath or wheezing) 30 Days Qty: 6.7 2RF Trulicity 0.75 mg/0.5 mL pen injector 0.75 mg SUBCUT .weekly Qty: 2 2RF paroxetine HCl 40 mg tablet 40 mg PO DAILY 30 Days Qty: 30 2RF hydroxyzine pamoate 25 mg capsule 25 mg PO QID PRN (Reason: anxiety) Qty: 60 2RF Rx Instructions: Take 1 capsule up to 4 times daily, if needed for anxiety symptoms: Monitor for drowsiness/sleepiness ondansetron 8 mg tablet,disintegrating 8 mg PO Q12H 30 Days Qty: 60 2RF pantoprazole 40 mg tablet,delayed release (DR/EC) 40 mg PO BID 30 Days Qty: 60 2RF albuterol sulfate 2.5 mg /3 mL (0.083 %) solution for nebulization 2.5 mg INHALATION QID PRN (Reason: wheezing) Qty: 180 2RF Ubrelvy 100 mg tablet 100 mg PO ONCE MDD 200 mg PRN (Reason: Migraine ) Qty: 30 2RF Rx Instructions: Take one tablet as needed at onset of headache, may repeat once in 24 hours. oxycodone 5 mg tablet 5 mg PO QID PRN (Reason: pain) 30 Days Qty: 120 0RF zonisamide [Zonegran] 100 mg capsule 100 mg PO .qhs Qty: 30 3RF lorazepam [Ativan] 1 mg tablet 1 mg PO DAILY Qty: 1 0RF Rx Instructions: Take 30 minutes before procedure. meloxicam 15 mg tablet 15 mg PO DAILY PRN (Reason: pain) Qty: 20 0RF cyclobenzaprine 10 mg tablet 10 mg PO BID PRN (Reason: muscle spasm and pain) Qty: 20 0RF Discharge Orders: Discharge ED (Routine); Ordered 04/08/22 Ordered By: Debi Huertas Referrals: Jaleesa Diop FNP-C [Primary Care Provider] - 1-3 days Discharge Diet: Advance as tolerated Discharge Activity: Resume usual activity Patient Instructions: Abdominal Pain (ED) Coding Level of Care Code ED Exhibits Coordinator for Chg Fwd Exam Comprehensive
[2022-04-07 23:55] LABS: Add Urine Microscopic? YES; Bilirubin Urine Neg (Negative); Blood Urine Neg (Negative); Glucose Urine UA Norm (Normal); Ketones Urine Negative (Negative); Leukocyte Esterase Urine 1+ (Negative); Nitrate Urine Negative (Negative); Protein Urine Neg (Negative); Urine Appearance Clear (CLEAR); Urine Color Yellow (Yellow); Urobilinogen Urine Norm (Negative); pH Urine 5 (5-7)
[2022-04-07 23:56] LABS: Add Urine Culture? No; Bacteria Urine TRACE /hpf; Mucus Urine 1+ /hpf; RBC Urine 0-4 /hpf (0-2); Squamous Epithelial Cell Urine 15-25 /hpf (0-5); WBC Urine 15-25 /hpf (0-5)
[2022-04-07] MEDS: ondansetron 2 mg/ML SDV 2 mL 4 MG IVP (23:59)
[2022-04-07] MEDS: morphine 4 mg/mL SDV 1 mL IVP (23:59)
[2022-04-08 00:09] LABS: Basophils # 0.1 10^3/uL (0.0-0.1); Basophils % 0.6 %; Eosinophils # 0.2 10^3/uL (0.0-0.8); Eosinophils % 1.4 %; Hematocrit 42.3 % (37.0-47.0); Hemoglobin 13.9 g/dL (11.5-15.3); Lymphocytes # 4.3 10^3/uL (0.8-4.8); Lymphocytes % 38.6 %; Mean Corpuscular HGB Conc 32.9 g/dL (30.0-36.0); Mean Corpuscular Hemoglobin 25.4 pg (28.0-34.0); Mean Corpuscular Volume 77.3 fl (81-99); Mean Platelet Volume 9.4 fL (7.4-10.4); Monocytes # 0.7 10^3/uL (0.2-0.9); Monocytes % 5.9 %; Neutrophils # 5.88 10^3/uL (1.8-7.7); Nucleated Red Blood Cells % 0 %; Platelet Count 332 10^3/cmm (130-400); Red Blood Count 5.47 10^6/uL (4.1-5.3); Red Cell Distribution Width 14.6 % (12.1-15.1); White Blood Count 11.1 10^3/uL (4.0-10.0)
[2022-04-08 00:28] LABS: Slide Review Slide Review Perform
[2022-04-08 00:59] LABS: Alanine Aminotransferase 27 U/L (0-33); Albumin Level 3.8 g/dL (3.5-5.2); Alkaline Phosphatase 104 IU/L (35-105); Anion Gap 12.2 (5-19); Aspartate Amino Transferase 27 U/L (0-32); Blood Urea Nitrogen 11 mg/dL (6-20); Calcium 9.2 mg/dL (8.5-10.5); Carbon Dioxide 31 mmol/L (22-29); Chloride 99 mmol/L (98-107); Creatinine Clr Calc Pharmacy 95.2227; Globulin 2.9 g/dL (1.3-4.6); Glomerular Filtration Rate 86.6 mL/min (90-130); Glucose 138 mg/dL (65-115); Lipase 36 U/L (13-60); Osmolality Calculated 288 mOsm/kg (285-295); Potassium 4.2 mmol/L (3.5-5.1); Sodium 138 mmol/L (136-145); Total Bilirubin 0.2 mg/dL (0.15-1.2); Total Protein 6.7 g/dL (6.6-8.7)
[2022-04-08] MEDS: morphine 4 mg/mL SDV 1 mL IVP (01:14)
[2022-04-08 01:34] VITALS: BP 113/54; PULSE 75; RESP 18; O2SAT 93
== END 2022-04-08 01:33 | disposition home or self-care (01) ==
PROVIDERS: Emergency Provider Emergency Medicine; PCP Nurse Practitioner Family
DX: R10.11 Right upper quadrant pain (principal); K74.60 Unspecified cirrhosis of liver; K75.81 Nonalcoholic steatohepatitis (NASH)
CPT/HCPCS: 36415; 74176; 80053; 81001; 83690; 85025; 96374; 96375; 96376; 99284; J2270; J2405

== ENCOUNTER → 2022-05-09 14:59 | Outpatient (BNVA) | payer BC, MEDICAID, SELFPAY | PROVIDERS: PCP Nurse Practitioner Family; Visit Provider Nurse Practitioner Family | DX: E78.2 Mixed hyperlipidemia (principal); G43.709 Chronic migraine without aura, not intractable, without status migrainosus; E87.6 Hypokalemia; F33.2 Major depressive disorder, recurrent severe without psychotic features; R35.0 Frequency of micturition; E11.9 Type 2 diabetes mellitus without complications; J45.909 Unspecified asthma, uncomplicated; K59.09 Other constipation; M54.9 Dorsalgia, unspecified; G47.9 Sleep disorder, unspecified; E03.9 Hypothyroidism, unspecified; G89.29 Other chronic pain; E55.9 Vitamin D deficiency, unspecified; J44.9 Chronic obstructive pulmonary disease, unspecified; R10.9 Unspecified abdominal pain; E11.42 Type 2 diabetes mellitus with diabetic polyneuropathy; I10 Essential (primary) hypertension; R05.3 Chronic cough; F41.9 Anxiety disorder, unspecified; R11.0 Nausea | CPT/HCPCS: 80053; 80061; 83036; 84443; 85025 ==

== ENCOUNTER → 2022-05-15 16:13 | Outpatient (BNVA) | payer BC, SELFPAY | PROVIDERS: PCP Nurse Practitioner Family; Visit Provider Nurse Practitioner Family | DX: Z20.822 Contact with and (suspected) exposure to COVID-19 (principal); J98.8 Other specified respiratory disorders | CPT/HCPCS: 87635 ==

== ENCOUNTER 2022-06-28 14:21 | Emergency (ER) | payer BC, MEDICAID, SELFPAY ==
[2022-06-28 14:44] VITALS: BP 115/72; PULSE 77; RESP 13; TEMP 37.1; O2SAT 96; BMI 44.4
--- NOTE | 2022-06-28 15:02 | XR_ITS ---
WS: [id number] Exam: XR ribs LT mn 3V w CXR1V [id number] Date/Time of Exam: 06/28/2022 3:12 PM Reason For Exam: fall/pain No acute left rib fracture or pneumothorax. No pleural or pulmonary reactive changes are seen. The staci ngs are bilaterally clear and fully inflated. Normal cardiomediastinal silhouette. XR/XR ribs LT mn 3V w CXR1V [id number] IMPRESSION: 1. No acute left rib fracture or pneumothorax. No acute cardiopulmonary finding .
--- NOTE | 2022-06-28 15:02 | ED_ITS ---
HPI - Fall General: Chief Complaint: Fall Stated Complaint: Fall-head/shoulder pain Time Seen by Provider: 06/28/22 14:56 Source: patient Mode of arrival: ambulatory Limitations: no limitations History of Present Illness: Patient is a 56-year-old female presents to ED today for evaluation following a fall. Patient states yesterday she lost her balance and fell onto her left side. Patient states she often times has problems with balance. She denies lightheadedness, dizziness, palpitations, chest pain, shortness of breath prior to the fall. She has not had any of these since the fall. She states she did strike her head when she fell but no loss of consciousness. She does complain of a headache today and some left rib pain. She states she has pain throughout the left side of her body but does not feel like anything is broken . She is able to bear full weight on her left hip and knee as well as the remainder of her lower extremity. She has full range of motion of all joints in her upper extremity. She does have some minor left rib pain. She denies midline cervical or back pain. MD complaint: fall Onset (ago): day(s) (yesterday) Fall from: standing Fall witnessed: yes, by family Place fall occurred: home Loss of consciousness: None Prolonged down time: no Symptoms prior to fall: none Location of injury: head and chest Associated symptoms-after fall: Reports chest pain (L rib pain) and headache(s); Denies abdominal pain, confusion, difficulty walking, hematuria, lightheadedness, neck pain or vertigo Review of Systems Const: Denies: fever(s), chills, body aches, fatigue or malaise Eyes: Denies: change in vision, blurry vision, blind spots, floaters or seeing flashes Card: Reports: chest pain (L rib pain); Denies: palpitations, irregular heart rhythm, edema, lightheadedness, syncope or pre-syncope Resp: Denies: dyspnea GI: Denies: abdominal pain : Denies: flank pain, dysuria or hematuria Musc: Denies: neck pain, back pain, extremity pain or joint pain Neuro: Reports: headache(s); Denies: numbness in extremities, weakness in extremities, sensory changes, lack of coordination, difficulty walking, dizziness, vertigo, confusion, Slurred speech present or difficulty communicating thoughts 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 Lumbar disc disease with radiculopathy Lung nodule Major depressive disorder, recurrent, moderate Psychiatric care Sleeping difficulty Urinary frequency Vitamin D deficiency, unspecified Surgical History Hx of cholecystectomy Hx of exploratory laparotomy abdominal surgery Hx of tonsillectomy Hx of unilateral oophorectomy left benign tumor Family History Mother Stroke maternal grandmother Father Cancer Lung Family/Other Diabetes Uncle Other Breast cancer Colon cancer Family history of thyroid problem Heart disease Ovarian cancer Uterine cancer Social History Smoking and tobacco status: former smoker Quit status (tobacco): has quit using tobacco Year quit tobacco: 1996 - PD x 20 Years Second hand smoke exposure: Yes Smoking risk assessment/counseling performed?: No Alcohol intake: unknown Desire information about alcohol rehabilitation?: No Counseling given: No Desire information about substance/drug rehabilitation?: No Counseling given: No Adopted: No Caregiver/support person: No Lives independently: Yes Household members: children Marital status: Number of children: 3 service: No Current occupational status: unemployed Pets and animals: Yes Pets & animals: cat(s) and dog(s) History of recent travel: No Current gender identity: Female Additional social history: - Tobacco use: Former; quit in 1999 Alcohol use: Denies Drug use: Denies Physical Exam Const: COMMON NORMALS: no acute distress, patient oriented x3, no limitations and alert NUTRITIONAL APPEARANCE: obese ORIENTATION/CONSCIOUSNESS: Yes awake, Yes oriented to person, Yes oriented to place and Yes oriented to time HENMT: COMMON NORMALS: normocephalic and atraumatic HEAD & SCALP: normal to inspection, normocephalic and atraumatic FACE & SINUS: normal facial exam Neck/C-Spine: COMMON NORMALS: full ROM GENERAL: Yes normal visual inspection CERVICAL SPINE: Yes cervical ROM normal, No pain with cervical ROM, No Cervical spine tenderness, No step off deformity and No Paracervical muscle tenderness Chest: COMMONS NORMALS: normal inspection of the chest OTHER: mild pain to posteriolateral L ribs; no crepitus; normal lung sounds Resp: COMMON NORMALS: normal respiratory effort and clear to auscultation bilaterally AUSCULTATION: clear to auscultation bilaterally Cardio: COMMON NORMALS: regular rate and regular rhythm RATE: regular rate RHYTHM: regular rhythm Back/Pelvis: COMMON NORMALS: thoracic and lumbar spine normal to inspection, no thoracic nor lumbar tenderness and thoraco-lumbar ROM normal Extremity: COMMON NORMALS: normal to inspection and full ROM GENERAL: Yes normal exam except as noted Neuro: FATIMAH COMA SCALE: document GCS findings [place] coma scale eye opening: Spontaneous Fatimah coma scale verbal response: Orientated [place] coma scale motor response: Obey commands [place] coma scale total score: 15 COMMON NORMALS: patient oriented x3, moves all extremities, no focal motor deficits, no sensory deficits noted and gait normal SENSORIUM/ORIENTATION: Yes alert, Yes oriented to person, Yes oriented to place and Yes oriented to time Skin: TRAUMA: no lacerations or abrasions Course Vital Signs: Vital signs: Vital Signs Temperature 98.8 F 06/28/22 14:44 Pulse Rate 77 06/28/22 14:44 Respiratory Rate 13 06/28/22 14:44 Blood Pressure 115/72 06/28/22 14:44 Pulse Oximetry 96 06/28/22 14:44 Oxygen Delivery Me thod 06/28/22 14:44 MDM - Fall Medical Decision Making XR L ribs/CT head negative. Patient will be allowed discharge with return to ED precautions. Otherwise follow up with PCP in 1-2 weeks for re-evaluation. Lab Data Radiology Impressions Head CT 06/28/22 15:02 IMPRESSION: Negative head CT. Ribs X-Ray 06/28/22 15:02 IMPRESSION: 1. No acute left rib fracture or pneumothorax. No acute cardiopulmonary finding. Discharge Plan Discharge Patient Disposition: Home Clinical Impression: Minor closed head injury Contusion of rib on left side Qualifiers: Encounter type: initial encounter Qualified Code(s): S20.212A - Contusion of le ft front wall of thorax, initial encounter Condition: Stable Prescriptions: No Action vitamin E 200 unit capsule 400 unit PO DAILY@0930 terconazole 0.8 % cream 1 appful VAGINAL .nightly Qty: 20 0RF (DME) 4 PRONG CANE, E0105 See Rx Instructions .Route .MEDSUPPLY Qty: 1 0RF Rx Instructions: As directed sucralfate [Carafate] 100 mg/mL suspension 10 ml PO QID Qty: 1000 2RF Rx Instructions: 1 hour before meals cannot swallow pills simvastatin 80 mg tablet 80 mg PO DAILY 30 Days Qty: 30 2RF rizatriptan [Maxalt-HIM MANAGER] 10 mg tablet,disintegrating See Rx Instructions PO .COMPLEX Qty: 14 3RF Rx Instructions: take 1 tab at onset of headache; if no relief may repeat 1 tab after at least 2 hrs; max = 2 tabs/24 hr PO propranolol 40 mg tablet 40 mg PO BID 30 Days Qty: 60 2RF potassium chloride 20 mEq tablet extended release 20 meq PO BID 30 Days Qty: 60 2RF paroxetine HCl 40 mg tablet 40 mg PO DAILY 30 Days Qty: 30 2RF pantoprazole 40 mg tablet,delayed release (DR/EC) 40 mg PO BID 30 Days Qty: 60 2RF oxybutynin chloride 5 mg tablet extended release 24 hr 5 mg PO DAILY 30 Days Qty: 30 2RF ondansetron 8 mg tablet,disintegrating 8 mg PO Q12H 30 Days Qty: 60 2RF metformin 500 mg tablet 500 mg PO BID 30 Days Qty: 60 2RF melatonin 10 mg tablet 10 mg PO BEDTIME 30 Days Qty: 30 2RF magnesium 200 mg tablet 400 mg PO DAILY 30 Days Qty: 60 2RF levothyroxine 25 mcg capsule 25 mcg PO DAILY 30 Days Qty: 30 2RF hydroxyzine pamoate 25 mg capsule 25 mg PO QID PRN (Reason: anxiety) Qty: 60 2RF Rx Instructions: Take 1 capsule up to 4 times daily, if needed for anxiety symptoms: Monitor for drowsiness/sleepiness Advair Diskus 250-50 mcg/dose blister with device 1 inh INHALATION BID 30 Days Qty: 60 2RF docusate sodium [Colace] 100 mg capsule 100 mg PO BID PRN (Reason: constipation) 30 Days Qty: 60 5RF dapagliflozin 10 mg tablet 10 mg PO DAILY 30 Days Qty: 30 2RF cyclobenzaprine 10 mg tablet 10 mg PO BID PRN (Reason: MUSCLE SPASMS) 30 Days Qty: 60 2RF cholecalciferol (vitamin D3) 1,250 mcg (50,000 unit) capsule See Rx Instructions .ROUTE .COMPLEX Qty: 4 2RF Dose Instruction: TAKE ONE CAPSULE BY MOUTH ONCE WEEKLY Rx Instructions: TAKE ONE CAPSULE BY MOUTH ONCE WEEKLY ON FRIDAYS benzonatate 200 mg capsule 200 mg PO TID PRN (Reason: cough) 30 Days Qty: 90 2RF amitriptyline 50 mg tablet 50 mg PO DAILY Qty: 30 2RF albuterol sulfate 90 mcg/actuation HFA aerosol inhaler 2 puff INHALATION Q6H PRN (Reason: shortness of breath or wheezing) 30 Days Qty: 6.7 2RF prednisone 20 mg tablet 20 mg PO BID Qty: 10 0RF levofloxacin 500 mg tablet 500 mg PO DAILY Qty: 7 0RF albuterol sulfate 2.5 mg /3 mL (0.083 %) solution for nebulization 2.5 mg INHALATION QID PRN (Reason: wheezing) Qty: 180 2RF Ubrelvy 100 mg tablet 100 mg PO ONCE MDD 200 mg PRN (Reason: Migraine ) Qty: 30 2RF Rx Instructions: Take one tablet as needed at onset of headache, may repeat once in 24 hours. oxycodone 5 mg tablet 5 mg PO QID PRN (Reason: pain) 30 Days Qty: 120 0RF zonisamide [Zonegran] 100 mg capsule 100 mg PO .qhs Qty: 30 3RF lorazepam [Ativan] 1 mg tablet 1 mg PO DAILY Qty: 1 0RF Rx Instructions: Take 30 minutes before procedure. Trulicity 1.5 mg/0.5 mL pen injector 1.5 mg SUBCUT .weekly Qty: 2 2RF Rx Instructions: dose increase meloxicam 15 mg tablet 15 mg PO DAILY PRN (Reason: pain) Qty: 20 0RF cyclobenzaprine 10 mg tablet 10 mg PO BID PRN (Reason: muscle spasm and pain) Qty: 20 0RF Discharge Orders: Discharge ED (Routine); Ordered 06/28/22 Ordered By: Viktoria Blue Referrals: Jaleesa Diop FNP-C [Primary Care Provider] - Coding Level of Care Code ED Bucket Hooker for Chg Fwd Exam Comprehensive
--- NOTE | 2022-06-28 15:02 | CT_ITS ---
WS: [id number] CT HEAD NONCONTRAST HISTORY: fall TECHNIQUE: Contiguous axial imaging performed through the brain in 2.5 mm imaging. Bone and soft tiss ue windows. Sagittal and coronal reformats reviewed. All CT scans at [facility] use at least one of these dose optimization techniques: automated exposure control; mA and/or kV adjustment per pa tient size (includes targeted exams where dose is matched to clinical indication); or iterative recon struction. DLP: 1100.18 mGy.cm COMPARISON: None available. No acute intracranial hemorrhage, midline shift or mass effect. No atrophy or prior infarcts or herniation. Ventricles: Normal size with no hydrocephalus. Paranasal sinuses: As visualized are clear. Mastoid air cells: Well pneumatized. Calvarium and scalp: Skull is intact with no soft tissue edema or swelling. CT/CT head wo con* [id number] IMPRESSION: Negative head CT.
[2022-06-28 16:22] VITALS: RESP 18
[2022-06-28] MEDS: morphine 4 mg/mL SDV 1 mL IM (16:22)
== END 2022-06-28 16:23 | disposition home or self-care (01) ==
PROVIDERS: Emergency Provider Physician Assistant; PCP Nurse Practitioner Family
DX: S09.8XXA Other specified injuries of head, initial encounter (principal); S20.212A Contusion of left front wall of thorax, initial encounter; Z79.899 Other long term (current) drug therapy; Z79.84 Long term (current) use of oral hypoglycemic drugs; Z87.891 Personal history of nicotine dependence; J44.9 Chronic obstructive pulmonary disease, unspecified; E11.9 Type 2 diabetes mellitus without complications; E78.5 Hyperlipidemia, unspecified; W18.39XA Other fall on same level, initial encounter
CPT/HCPCS: 70450; 71101; 96372; 99285; J2270

== ENCOUNTER 2022-08-11 14:52 | Emergency (ER) | payer BC, MEDICAID, SELFPAY ==
[2022-08-11 15:01] VITALS: BP 138/86; PULSE 78; RESP 18; TEMP 36.7; O2SAT 96; BMI 42.4
--- NOTE | 2022-08-11 15:05 | US_ITS ---
WS: [id number] Right upper quadrant ultrasound, 08/11/2022 Clinical Data: RUQ pain Comparison: Right upper quadrant and gallbladder ultrasound, 11/14/2018. Findings: The gallbladder is absent. The common bile duct is 0.7 cm and there are no intrahepatic ductal abnorm alities. Liver shows no cysts, masses or dilated intrahepatic ducts. Liver is enlarged measuring 18.22 cm with a coarse echotexture. The pancreas is not obscured by overlying bowel gas and no cyst, pseudocyst, or evidence of pancreati tis is noted. Right kidney measures 10.4 cm and no cyst, masses or hydronephrosis can be seen. The aorta and inferior vena cava show no vascular abnormalities. No ascites is seen. US/US liver [id number] Impression: 1. Absent gallbladder. 2. Slightly enlarged liver with a coarse echotexture.
[2022-08-11 15:29] LABS: Basophils # 0.1 10^3/uL (0.0-0.1); Basophils % 0.8 %; Eosinophils # 0.2 10^3/uL (0.0-0.8); Eosinophils % 1.8 %; Hematocrit 46.2 % (37.0-47.0); Hemoglobin 14.6 g/dL (11.5-15.3); Lymphocytes # 4.4 10^3/uL (0.8-4.8); Lymphocytes % 40.9 %; Mean Corpuscular HGB Conc 31.6 g/dL (30.0-36.0); Mean Corpuscular Hemoglobin 26.3 pg (28.0-34.0); Mean Corpuscular Volume 83.2 fl (81-99); Mean Platelet Volume 9.2 fL (7.4-10.4); Monocytes # 0.6 10^3/uL (0.2-0.9); Monocytes % 5.3 %; Neutrophils # 5.43 10^3/uL (1.8-7.7); Neutrophils % 50.9 %; Nucleated Red Blood Cells % 0 %; Platelet Count 345 10^3/cmm (130-400); Red Blood Count 5.55 10^6/uL (4.1-5.3); Red Cell Distribution Width 14.4 % (12.1-15.1); White Blood Count 10.6 10^3/uL (4.0-10.0)
[2022-08-11 16:02] LABS: Alanine Aminotransferase 29 U/L (0-33); Albumin Level 4.1 g/dL (3.5-5.2); Alkaline Phosphatase 140 U/L (35-105); Anion Gap 13.6 (5-19); Aspartate Amino Transferase 22 U/L (0-32); Blood Urea Nitrogen 10 mg/dL (6-20); Calcium 9.9 mg/dL (8.5-10.5); Carbon Dioxide 27 mmol/L (22-29); Chloride 97 mmol/L (98-107); Globulin 3.2 g/dL (1.3-4.6); Glomerular Filtration Rate 103.4 mL/min (90-130); Glucose 134 mg/dL (65-115); Lipase 20 U/L (13-60); Osmolality Calculated 279 mOsm/kg (285-295); Potassium 3.6 mmol/L (3.5-5.1); Sodium 134 mmol/L (136-145); Total Bilirubin 0.2 mg/dL (0.15-1.2); Total Protein 7.3 g/dL (6.6-8.7)
[2022-08-11 18:20] LABS: Add Urine Microscopic? NO; Charge for UA Resulting for Rev
[2022-08-11 18:24] VITALS: BP 150/90
--- NOTE | 2022-08-11 18:24 | ED_ITS ---
HPI - Abdominal Pain General: Chief Complaint: Abdominal Pain Stated Complaint: abd pain Time Seen by Provider: 08/11/22 18:19 Source: patient Mode of arrival: ambulatory Limitations: no limitations History of Present Illness: 56-year-old female has a history of cirrhosis and chronic abdominal pain states has been having some increased right upper quadrant abdominal pain she has had a cholecystectomy in the past she denies any fever denies any vomiting states the pain is currently a 6 out of 10 she denies any worsening improving factors. Associated Symptoms: Denies chills, dysuria and fever(s) Review of Systems Const: Denies: fever(s), chills, body aches or change in appetite Eyes: Denies: blurry vision or eye discomfort ENMT: Denies: throat pain or dental pain Card: Denies: chest pain Resp: Denies: dyspnea GI: Reports: abdominal pain : Denies: dysuria Musc: Denies: neck pain or back pain Skin/Breast: Denies: rash Neuro: Denies: headache(s) Psych: Denies: depression David/Lymph: Denies: easy bruising All/Imm: Denies: urticaria 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 Lumbar disc disease with radiculopathy Lung nodule Major depressive disorder, recurrent, moderate Psychiatric care Sleeping difficulty Urinary frequency Vitamin D deficiency, unspecified Surgical History Hx of cholecystectomy Hx of exploratory laparotomy abdominal surgery Hx of tonsillectomy Hx of unilateral oophorectomy left benign tumor Family History Mother Stroke maternal grandmother Father Cancer Lung Family/Other Diabetes Uncle Other Breast cancer Colon cancer Family history of thyroid problem Heart disease Ovarian cancer Uterine cancer Social History Smoking and tobacco status: former smoker Quit status (tobacco): has quit using tobacco Year quit tobacco: 1996 - 1PPD x 20 Years Second hand smoke exposure: Yes Smoking risk assessment/counseling performed?: No Alcohol intake: unknown Desire information about alcohol rehabilitation?: No Counseling given: No Desire information about substance/drug rehabilitation?: No Counseling given: No Adopted: No Caregiver/support person: No Lives independently: Yes Household members: children Marital status: Number of children: 3 service: No Current occupational status: unemployed Pets and animals: Yes Pets & animals: cat(s) and dog(s) History of recent travel: No Current gender identity: Female Additional social history: - Tobacco use: Former; quit in 1999 Alcohol use: Denies Drug use: Denies Physical Exam Const: COMMON NORMALS: no acute distress, patient oriented x3 and healthy appearing HENMT: COMMON NORMALS: normocephalic and atraumatic HEAD & SCALP: normocephalic and atraumatic Eye: COMMON NORMALS: Equal, round and reactive pupils present and EOMs intact bilaterally PUPIL: Yes Equal, round and reactive pupils present Neck/C-Spine: COMMON NORMALS: full ROM and supple Chest: COMMONS NORMALS: normal inspection of the chest and normal palpation of entire chest wall Resp: COMMON NORMALS: normal respiratory effort, No retractions, No use of accessory muscles and clear to auscultation bilaterally AUSCULTATION: clear to auscultation bilaterally Cardio: COMMON NORMALS: regular rate, regular rhythm and No murmurs present (Cardio) RATE: regular rate RHYTHM: regular rhythm GI: COMMON NORMALS: Normal to inspection, nondistended, normoactive bowel sounds present, Soft to palpation, non-tender and no masses PALPATION: Yes Soft to palpation Extremity: COMMON NORMALS: normal to inspection and full ROM Neuro: COMMON NORMALS: patient oriented x3, moves all extremities and no focal motor deficits Psych: COMMON NORMALS: mental status grossly normal, Normal thought process present and cooperative THOUGHT PROCESS: Normal thought process present Skin: COMMON NORMALS: no rashes or lesions noted and no wounds GENERAL SKIN EXAM: no rashes or lesions noted Course Vital Signs: Vital signs: Vital Signs Temperature 98.1 F 08/11/22 15:01 Pulse Rate 78 08/11/22 15:01 Respiratory Rate 18 08/11/22 15:01 Blood Pressure 150/90 08/11/22 18:24 Pulse Oximetry 96 08/11/22 15:01 Oxygen Delivery Me thod 08/11/22 15:01 MDM - Abdominal Pain Medical Decision Making Patient presents with abdominal pain patient's blood work here shows no acute ab normalities her exam is benign ultrasound of her liver was normal as well. Did give her some IM pain medicine here she is stable for discharge she is to follow-up with her PCP and 3 to 5 days and return if worsening she understands agrees to plan. Lab Data : 08/11/22 15:20 08/11/22 15:20 Labs/Radiology: Radiology Impressions Liver Ultrasound 08/11/22 15:05 Impression: 1. Absent gallbladder. 2. Slightly enlarged liver with a coarse echotexture. Laboratory Results WBC 10.6 10^3/uL (4.0-10.0) H 08/11/22 15:20 RBC 5.55 10^6/uL (4.1-5.3) H 08/11/22 15:20 Hgb 14.6 g/dL (11.5-15.3) 08/11/22 15:20 Hct 46.2 % (37.0-47.0) 08/11/22 15:20 MCV 83.2 fl (81-99) 08/11/22 15:20 MCH 26.3 pg (28.0-34.0) L 08/11/22 15:20 MCHC 31.6 g/dL (30.0-36.0) 08/11/22 15:20 RDW 14.4 % (12.1-15.1) 08/11/22 15:20 Plt Count 345 10^3/cmm (130-400) 08/11/22 15:20 MPV 9.2 fL (7.4-10.4) 08/11/22 15:20 Neut % (Auto) 50.9 % 08/11/22 15:20 Lymph % (Auto) 40.9 % 08/11/22 15:20 [place] % (Auto) 5.3 % 08/11/22 15:20 Eos % (Auto) 1.8 % 08/11/22 15:20 Baso % (Auto) 0.8 % 08/11/22 15:20 Neut # (Auto) 5.43 10^3/uL (1.8-7.7) 08/11/22 15:20 Lymph # (Auto) 4.4 10^3/uL (0.8-4.8) 08/11/22 15:20 [place] # (Auto) 0.6 10^3/uL (0.2-0.9) 08/11/22 15:20 Eos # (Auto) 0.2 10^3/uL (0.0-0.8) 08/11/22 15:20 Baso # (Auto) 0.1 10^3/uL (0.0-0.1) 08/11/22 15:20 Nucleated RBC % (auto) 0 % 08/11/22 15:20 Nucleated RBCs # 0.0 /100WBC 08/11/22 15:20 Sodium 134 mmol/L (136-145) L 08/11/22 15:20 Potassium 3.6 mmol/L (3.5-5.1) 08/11/22 15:20 Chloride 97 mmol/L (98-107) L 08/11/22 15:20 Carbon Dioxide 27 mmol/L (22-29) 08/11/22 15:20 Anion Gap 13.6 (5-19) 08/11/22 15:20 BUN 10 mg/dL (6-20) 08/11/22 15:20 Creatinine 0.6 mg/dL (0.5-0.9) 08/11/22 15:20 GFR Calculation 103.4 mL/min (90-130) 08/11/22 15:20 Glucose 134 mg/dL (65-115) H 08/11/22 15:20 Calculated Osmolality 279 mOsm/kg (285-295) L 08/11/22 15:20 Calcium 9.9 mg/dL (8.5-10.5) 08/11/22 15:20 Total Bilirubin 0.2 mg/dL (0.15-1.2) 08/11/22 15:20 AST 22 U/L (0-32) 08/11/22 15:20 ALT 29 U/L (0-33) 08/11/22 15:20 Alkaline Phosphatase 140 U/L (35-105) H 08/11/22 15:20 Total Protein 7.3 g/dL (6.6-8.7) 08/11/22 15:20 Albumin 4.1 g/dL (3.5-5.2) 08/11/22 15:20 Globulin 3.2 g/dL (1.3-4.6) 08/11/22 15:20 Lipase 20 U/L (13-60) 08/11/22 15:20 Urine Color Yellow (Yellow) 08/11/22 18:15 Urine Appearance Clear (CLEAR) 08/11/22 18:15 Urine pH 5 (5-7) 08/11/22 18:15 Ur Specific [place] 1.015 (1.005-1.030) 08/11/22 18:15 Urine Protein Neg (Negative) 08/11/22 18:15 Urine Glucose (UA) 4+ (Normal) H 08/11/22 18:15 Urine Ketones Negative (Negative) 08/11/22 18:15 Urine Blood Neg (Negative) 08/11/22 18:15 Urine Nitrate Negative (Negative) 08/11/22 18:15 Urine Bilirubin Neg (Negative) 08/11/22 18:15 Urine Urobilinogen Neg mg/dL (Negative) 08/11/22 18:15 Ur Leukocyte Esterase Negative (Negative) 08/11/22 18:15 Discharge Plan Discharge Patient Disposition: Home Clinical Impression: Abdominal pain Condition: Stable Prescriptions: No Action vitamin E 200 unit capsule 400 unit PO DAILY@0930 terconazole 0.8 % cream 1 appful VAGINAL .nightly Qty: 20 0RF (DME) 4 PRONG CANE, E0105 See Rx Instructions .Route .MEDSUPPLY Qty: 1 0RF Rx Instructions: As directed sucralfate [Carafate] 100 mg/mL suspension 10 ml PO QID Qty: 1000 2RF Rx Instructions: 1 hour before meals cannot swallow pills simvastatin 80 mg tablet 80 mg PO DAILY 30 Days Qty: 30 2RF rizatriptan [Maxalt-MUSICAL INSTRUMENT [employer]KER OR REPAIRER] 10 mg tablet,disintegrating See Rx Instructions PO .COMPLEX Qty: 14 3RF Rx Instructions: take 1 tab at onset of headache; if no relief may repeat 1 tab after at least 2 hrs; max = 2 tabs/24 hr PO propranolol 40 mg tablet 40 mg PO BID 30 Days Qty: 60 2RF potassium chloride 20 mEq tablet extended release 20 meq PO BID 30 Days Qty: 60 2RF paroxetine HCl 40 mg tablet 40 mg PO DAILY 30 Days Qty: 30 2RF pantoprazole 40 mg tablet,delayed release (DR/EC) 40 mg PO BID 30 Days Qty: 60 2RF oxybutynin chloride 5 mg tablet extended release 24 hr 5 mg PO DAILY 30 Days Qty: 30 2RF ondansetron 8 mg tablet,disintegrating 8 mg PO Q12H 30 Days Qty: 60 2RF metformin 500 mg tablet 500 mg PO BID 30 Days Qty: 60 2RF melatonin 10 mg tablet 10 mg PO BEDTIME 30 Days Qty: 30 2RF magnesium 200 mg tablet 400 mg PO DAILY 30 Days Qty: 60 2RF levothyroxine 25 mcg capsule 25 mcg PO DAILY 30 Days Qty: 30 2RF hydroxyzine pamoate 25 mg capsule 25 mg PO QID PRN (Reason: anxiety) Qty: 60 2RF Rx Instructions: Take 1 capsule up to 4 times daily, if needed for anxiety symptoms: Monitor for drowsiness/sleepiness Advair Diskus 250-50 mcg/dose blister with device 1 inh INHALATION BID 30 Days Qty: 60 2RF docusate sodium [Colace] 100 mg capsule 100 mg PO BID PRN (Reason: constipation) 30 Days Qty: 60 5RF dapagliflozin 10 mg tablet 10 mg PO DAILY 30 Days Qty: 30 2RF cyclobenzaprine 10 mg tablet 10 mg PO BID PRN (Reason: MUSCLE SPASMS) 30 Days Qty: 60 2RF cholecalciferol (vitamin D3) 1,250 mcg (50,000 unit) capsule See Rx Instructions .ROUTE .COMPLEX Qty: 4 2RF Dose Instruction: TAKE ONE CAPSULE BY MOUTH ONCE WEEKLY Rx Instructions: TAKE ONE CAPSULE BY MOUTH ONCE WEEKLY ON FRIDAYS benzonatate 200 mg capsule 200 mg PO TID PRN (Reason: cough) 30 Days Qty: 90 2RF amitriptyline 50 mg tablet 50 mg PO DAILY Qty: 30 2RF albuterol sulfate 90 mcg/actuation HFA aerosol inhaler 2 puff INHALATION Q6H PRN (Reason: shortness of breath or wheezing) 30 Days Qty: 6.7 2RF prednisone 20 mg tablet 20 mg PO BID Qty: 10 0RF levofloxacin 500 mg tablet 500 mg PO DAILY Qty: 7 0RF albuterol sulfate 2.5 mg /3 mL (0.083 %) solution for nebulization 2.5 mg INHALATION QID PRN (Reason: wheezing) Qty: 180 2RF Ubrelvy 100 mg tablet 100 mg PO ONCE MDD 200 mg PRN (Reason: Migraine ) Qty: 30 2RF Rx Instructions: Take one tablet as needed at onset of headache, may repeat once in 24 hours. oxycodone 5 mg tablet 5 mg PO QID PRN (Reason: pain) 30 Days Qty: 120 0RF zonisamide [Zonegran] 100 mg capsule 100 mg PO .qhs Qty: 30 3RF lorazepam [Ativan] 1 mg tablet 1 mg PO DAILY Qty: 1 0RF Rx Instructions: Take 30 minutes before procedure. Trulicity 1.5 mg/0.5 mL pen injector 1.5 mg SUBCUT .weekly Qty: 2 2RF Rx Instructions: dose increase meloxicam 15 mg tablet 15 mg PO DAILY PRN (Reason: pain) Qty: 20 0RF cyclobenzaprine 10 mg tablet 10 mg PO BID PRN (Reason: muscle spasm and pain) Qty: 20 0RF Discharge Orders: Discharge ED (Routine); Ordered 08/11/22 Ordered By: Debi Huertas Referrals: Jaleesa Diop FNP-C [Primary Care Provider] - 1-3 days Discharge Diet: Advance as tolerated Discharge Activity: Resume usual activity Patient Instructions: Abdominal Pain (ED) Coding Level of Care Code ED Drop Wirer for Robbi Lopez
[2022-08-11 18:28] LABS: Ketones Urine Negative (Negative); Protein Urine Neg (Negative); Specific Gravity, Urine 1.015 (1.005-1.030); Urine Appearance Clear (CLEAR); Urine Color Yellow (Yellow); pH Urine 5 (5-7)
[2022-08-11 18:29] LABS: Bilirubin Urine Neg (Negative); Blood Urine Neg (Negative); Glucose Urine UA 4+ (Normal); Leukocyte Esterase Urine Negative (Negative); Nitrate Urine Negative (Negative); Urobilinogen Urine Neg (Negative)
[2022-08-11] MEDS: ondansetron 2 mg/ML SDV 2 mL 4 MG IM (18:34)
[2022-08-11 18:35] VITALS: RESP 18
[2022-08-11] MEDS: morphine 4 mg/mL SDV 1 mL IM (18:35)
[2022-08-11 18:52] VITALS: BP 150/90; PULSE 78; RESP 18; O2SAT 96
== END 2022-08-11 18:53 | disposition home or self-care (01) ==
PROVIDERS: Emergency Medicine; Emergency Provider Emergency Medicine; PCP Nurse Practitioner Family
DX: R10.9 Unspecified abdominal pain (principal); Z79.85 Long-term (current) use of injectable non-insulin antidiabetic drugs; Z79.84 Long term (current) use of oral hypoglycemic drugs; Z87.891 Personal history of nicotine dependence; J44.9 Chronic obstructive pulmonary disease, unspecified; E11.9 Type 2 diabetes mellitus without complications; E78.5 Hyperlipidemia, unspecified
CPT/HCPCS: 36415; 76705; 80053; 81003; 83690; 85025; 96372; 99285; J2270; J2405

== ENCOUNTER 2022-12-18 01:07 | Emergency (ER) | payer BC, MEDICAID, SELFPAY ==
[2022-12-18 01:13] VITALS: BP 163/78; PULSE 87; RESP 18; TEMP 36.4; O2SAT 96; BMI 40.1
--- NOTE | 2022-12-18 01:19 | XRR_ITS ---
PROCEDURE INFORMATION: Exam: XR Left Hand Exam date and time: 12/18/2022 1:27 AM Age: 57 years old Clinical indication: Injury or trauma; Fall; Other: Abrasion to palm TECHNIQUE: Imaging protocol: Radiologic exam of the Left hand. Views: 3 or more views. COMPARISON: No relevant prior studies available. FINDINGS: Bones/joints: Normal. Soft tissues: Normal. XR/XR hand LT min 3V* [id number] IMPRESSION: No acute findings.
--- NOTE | 2022-12-18 01:19 | CTR_ITS ---
PROCEDURE INFORMATION: Exam: CT Head Without Contrast Exam date and time: 12/18/2022 1:44 AM Age: 57 years old Clinical indication: Injury or trauma; Fall; Blunt trauma (contusions or hematomas) TECHNIQUE: Imaging protocol: Computed tomography of the head without contrast. Radiation optimization: All CT scans at this facility use at least one of these dose optimization techniques: automated exposure control; mA and/or kV adjustment per patient size (includes targeted exams where dose is matched to clinical indication); or iterative reconstruction. Other protocol: This patient has received 2 known CTs and 0 known cardiac nuclear medicine studies in the 12 months prior to the current study. COMPARISON: CT head wo con* [id number] 06/28/2022 3:25 PM RADIATION DOSE METRICS: Total DLP (mGy-cm): 1053 FINDINGS: Brain: Normal. No hemorrhage. Unremarkable white matter. No mass effect. Cerebral ventricles: No ventriculomegaly. Paranasal sinuses: Visualized sinuses are unremarkable. No fluid levels. Mastoid air cells: Visualized mastoid air cells are well aerated. Bones/joints: Unremarkable. No acute fracture. Soft tissues: Unremarkable. CT/CT head wo con* [id number] IMPRESSION: No acute intracranial abnormality.
--- NOTE | 2022-12-18 01:21 | W.ED.FALL ---
HPI - Fall General: Chief Complaint: Fall Stated Complaint: Fall Hit Head Time Seen by Provider: 12/18/22 01:10 Source: patient Mode of arrival: ambulatory Limitations: no limitations History of Present Illness: 57-year-old female states that she tripped over her limb outside roughly 10 hours ago she states she landed on her left hand and hit her head she states since then she has been having slight pain in her hand and dizziness along with a headache she denies any loss conscious denies any neck pain denies any other injuries. She rates her pain a 5 out of 10 currently Associated symptoms-after fall: Reports headache(s); Denies abdominal pain or chest pain Review of Systems Const: Denies: fever(s), chills, body aches or change in appetite Eyes: Denies: blurry vision or eye discomfort ENMT: Denies: throat pain or dental pain Card: Denies: chest pain Resp: Denies: dyspnea GI: Denies: abdominal pain, nausea, vomiting or diarrhea : Denies: dysuria Musc: Reports: extremity pain Skin/Breast: Denies: rash Neuro: Reports: headache(s) and dizziness Psych: Denies: depression David/Lymph: Denies: easy bruising All/Imm: Denies: urticaria PFSH ED PFSH: Medical History Anxiety and depression Chronic back pain greater than 3 months duration Chronic constipation Chronic migraine Chronic nausea COPD with asthma Diabetes mellitus Diabetic neuropathy Encounter for long-term opiate analgesic use Environmental and seasonal allergies Facet arthritis of lumbar region GERD (gastroesophageal reflux disease) History of suicidal ideation HSV-2 infection Hyperlipidemia Hypokalemia Hypomagnesemia 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 Lumbar disc disease with radiculopathy Lung nodule Major depressive disorder, recurrent, moderate Psychiatric care Sleeping difficulty Urinary frequency Vitamin D deficiency, unspecified Surgical History Hx of cholecystectomy Hx of exploratory laparotomy abdominal surgery Hx of tonsillectomy Hx of unilateral oophorectomy left benign tumor Family History Mother Stroke maternal grandmother Father Cancer Lung Family/Other Diabetes Uncle Other Breast cancer Colon cancer Family history of thyroid problem Heart disease Ovarian cancer Uterine cancer Social History Smoking and tobacco status: former smoker Quit status (tobacco): has quit using tobacco Year quit tobacco: 1996 - 1PPD x 20 Years Second hand smoke exposure: Yes Smoking risk assessment/counseling performed?: No Alcohol intake: unknown Desire information about alcohol rehabilitation?: No Counseling given: No Desire information about substance/drug rehabilitation?: No Counseling given: No Adopted: No Caregiver/support person: No Lives independently: Yes Household members: children Marital status: Number of children: 3 service: No Current occupational status: unemployed Pets and animals: Yes Pets & animals: cat(s) and dog(s) Current gender identity: Female Additional social history: - Tobacco use: Former; quit in 1999 Alcohol use: Denies Drug use: Denies Physical Exam Const: COMMON NORMALS: no acute distress, patient oriented x3 and healthy appearing HENMT: COMMON NORMALS: normocephalic and atraumatic HEAD & SCALP: normocephalic and atraumatic Eye: COMMON NORMALS: Equal, round and reactive pupils present and EOMs intact bilaterally PUPIL: Yes Equal, round and reactive pupils present Neck/C-Spine: COMMON NORMALS: full ROM and supple Chest: COMMONS NORMALS: normal inspection of the chest and normal palpation of entire chest wall Resp: COMMON NORMALS: normal respiratory effort, No retractions, No use of accessory muscles and clear to auscultation bilaterally AUSCULTATION: clear to auscultation bilaterally Cardio: COMMON NORMALS: regular rate, regular rhythm and No murmurs present (Cardio) RATE: regular rate RHYTHM: regular rhythm GI: COMMON NORMALS: Normal to inspection, nondistended, normoactive bowel sounds present, Soft to palpation, non-tender and no masses PALPATION: Yes Soft to palpation Extremity: COMMON NORMALS: full ROM NARRATIVE EXTREMITY EXAM: abrasion and tenderness to left hand Neuro: COMMON NORMALS: patient oriented x3, moves all extremities and no focal motor deficits Psych: COMMON NORMALS: mental status grossly normal, Normal thought process present and cooperative THOUGHT PROCESS: Normal thought process present Skin: COMMON NORMALS: no rashes or lesions noted and no wounds GENERAL SKIN EXAM: no rashes or lesions noted Course Vital Signs: Vital signs: Vital Signs Temperature 97.5 F L 12/18/22 01:13 Pulse Rate 87 12/18/22 01:13 Respiratory Rate 18 12/18/22 01:13 Blood Pressure 163/78 12/18/22 01:13 Pulse Oximetry 96 12/18/22 01:13 Oxygen Delivery Me thod 12/18/22 01:13 MDM - Fall Medical Decision Making Patient presents here with a closed head injury head CT is normal she does have abrasion left hand no signs of fracture she is stable for discharge she is to follow-up PCP and return if worsening. Lab Data Radiology Impressions Hand X-Ray 12/18/22 01:19 IMPRESSION: No acute findings. Head CT 12/18/22 01:19 IMPRESSION: No acute intracranial abnormality. Discharge Plan Discharge Patient Disposition: Home Clinical Impression: Closed head injury Condition: Stable Prescriptions: No Action vitamin E 200 unit capsule 400 unit PO DAILY@0930 terconazole 0.8 % cream 1 appful VAGINAL .nightly Qty: 20 0RF (DME) 4 PRONG CANE, E0105 See Rx Instructions .Route .MEDSUPPLY Qty: 1 0RF Rx Instructions: As directed prednisone 20 mg tablet 20 mg PO BID Qty: 6 0RF sumatriptan succinate 50 mg tablet See Rx Instructions PO .COMPLEX Qty: 10 5RF Rx Instructions: take 1 tab at onset of headache; if no relief may repeat 1 tab after at least 2 hrs; max = 4 tabs/24 hr PO albuterol sulfate 2.5 mg /3 mL (0.083 %) solution for nebulization 2.5 mg INHALATION QID PRN (Reason: wheezing) Qty: 180 2RF Ubrelvy 100 mg tablet 100 mg PO ONCE MDD 200 mg PRN (Reason: Migraine ) Qty: 30 2RF Rx Instructions: Take one tablet as needed at onset of headache, may repeat once in 24 hours. oxycodone 5 mg tablet 5 mg PO QID PRN (Reason: pain) 30 Days Qty: 120 0RF zonisamide [Zonegran] 100 mg capsule 100 mg PO .qhs Qty: 30 3RF lorazepam [Ativan] 1 mg tablet 1 mg PO DAILY Qty: 1 0RF Rx Instructions: Take 30 minutes before procedure. sucralfate [Carafate] 100 mg/mL suspension 10 ml PO QID Qty: 1000 2RF Rx Instructions: 1 hour before meals cannot swallow pills simvastatin 80 mg tablet 80 mg PO DAILY 30 Days Qty: 30 2RF propranolol 40 mg tablet 40 mg PO BID 30 Days Qty: 60 2RF potassium chloride 20 mEq tablet extended release 20 meq PO BID 30 Days Qty: 60 2RF paroxetine HCl 40 mg tablet 40 mg PO DAILY 30 Days Qty: 30 2RF pantoprazole 40 mg tablet,delayed release (DR/EC) 40 mg PO BID 30 Days Qty: 60 2RF oxybutynin chloride 5 mg tablet extended release 24hr 5 mg PO DAILY 30 Days Qty: 30 2RF ondansetron 8 mg tablet,disintegrating 8 mg PO Q12H 30 Days Qty: 60 2RF metformin 500 mg tablet 500 mg PO BID 30 Days Qty: 60 2RF melatonin 10 mg tablet 10 mg PO BEDTIME 30 Days Qty: 30 2RF magnesium 200 mg tablet 400 mg PO DAILY 30 Days Qty: 60 2RF levothyroxine 25 mcg capsule 25 mcg PO DAILY 30 Days Qty: 30 2RF Advair Diskus 250-50 mcg/dose blister with device 1 inh INHALATION BID 30 Days Qty: 60 2RF docusate sodium [Colace] 100 mg capsule 100 mg PO BID PRN (Reason: constipation) 30 Days Qty: 60 5RF dapagliflozin 10 mg tablet 10 mg PO DAILY 30 Days Qty: 30 2RF cyclobenzaprine 10 mg tablet 10 mg PO BID PRN (Reason: MUSCLE SPASMS) 30 Days Qty: 60 2RF cholecalciferol (vitamin D3) 1,250 mcg (50,000 unit) capsule See Rx Instructions .ROUTE .COMPLEX Qty: 4 2RF Dose Instruction: TAKE ONE CAPSULE BY MOUTH ONCE WEEKLY Rx Instructions: TAKE ONE CAPSULE BY MOUTH ONCE WEEKLY ON FRIDAYS benzonatate 200 mg capsule 200 mg PO TID PRN (Reason: cough) 30 Days Qty: 90 2RF amitriptyline 50 mg tablet 50 mg PO DAILY Qty: 30 2RF albuterol sulfate 90 mcg/actuation HFA aerosol inhaler 2 puff INHALATION Q6H PRN (Reason: shortness of breath or wheezing) 30 Days Qty: 6.7 2RF dulaglutide 1.5 mg/0.5 mL pen injector 1.5 mg SUBCUT .weekly Qty: 2 2RF Rx Instructions: dose increase hydroxyzine pamoate 25 mg capsule 25 mg PO QID PRN (Reason: anxiety) Qty: 60 2RF Rx Instructions: Take 1 capsule up to 4 times daily, if needed for anxiety symptoms meloxicam 15 mg tablet 15 mg PO DAILY PRN (Reason: pain) Qty: 20 0RF cyclobenzaprine 10 mg tablet 10 mg PO BID PRN (Reason: muscle spasm and pain) Qty: 20 0RF Discharge Orders: Discharge ED (Routine); Ordered 12/18/22 Ordered By: Debi Huertas Referrals: Jaleesa Diop FNP-C [Primary Care Provider] - Discharge Diet: Advance as tolerated Discharge Activity: Resume usual activity Patient Instructions: Head Injury (ED) Coding Level of Care Code ED Hospice Clinical Supervisor for Robbi Lopez
[2022-12-18] MEDS: meclizine 25 mg tablet 50 MG PO (01:26)
[2022-12-18] MEDS: naproxen 500 mg Tablet PO (02:38)
== END 2022-12-18 02:39 | disposition home or self-care (01) ==
PROVIDERS: Emergency Provider Emergency Medicine; PCP Nurse Practitioner Family
DX: S09.8XXA Other specified injuries of head, initial encounter (principal); Z79.84 Long term (current) use of oral hypoglycemic drugs; S60.512A Abrasion of left hand, initial encounter; Z87.891 Personal history of nicotine dependence; E11.9 Type 2 diabetes mellitus without complications; J44.9 Chronic obstructive pulmonary disease, unspecified; E78.5 Hyperlipidemia, unspecified; W18.09XA Striking against other object with subsequent fall, initial encounter
CPT/HCPCS: 70450; 73130; 99284; J8597

== ENCOUNTER → 2023-01-04 09:57 | Outpatient (BNVA) | payer BC, MEDICAID, SELFPAY | PROVIDERS: PCP Nurse Practitioner Family; Visit Provider Nurse Practitioner Family | DX: E11.9 Type 2 diabetes mellitus without complications (principal) | CPT/HCPCS: 80053; 80061; 83036; 84443; 85025 ==

== ENCOUNTER → 2023-01-23 15:19 | Outpatient (BNVA) | payer BC, MEDICAID, SELFPAY | PROVIDERS: PCP Nurse Practitioner Family; Visit Provider Nurse Practitioner Family | DX: E03.9 Hypothyroidism, unspecified (principal) | CPT/HCPCS: 84443 ==

== ENCOUNTER → 2023-05-16 10:31 | Outpatient (BNVA) | payer BC, MEDICAID, SELFPAY | PROVIDERS: PCP Nurse Practitioner Family; Visit Provider Nurse Practitioner Family | DX: E03.9 Hypothyroidism, unspecified (principal); E55.9 Vitamin D deficiency, unspecified; E11.9 Type 2 diabetes mellitus without complications | CPT/HCPCS: 80053; 80061; 83036; 84443; 85025 ==

== ENCOUNTER 2023-05-21 17:22 | Emergency (ER) | payer BC, MEDICAID, SELFPAY ==
[2023-05-21 17:30] VITALS: BP 111/66; PULSE 82; RESP 16; TEMP 36.8; O2SAT 94; BMI 39.9
[2023-05-21 18:32] LABS: Basophils # 0.1 10^3/uL (0.0-0.1); Basophils % 0.6 %; Eosinophils # 0.2 10^3/uL (0.0-0.8); Eosinophils % 2.2 %; Hematocrit 45.7 % (37.0-47.0); Hemoglobin 14.3 g/dL (11.5-15.3); Lymphocytes # 4.9 10^3/uL (0.8-4.8); Lymphocytes % 51.5 %; Mean Corpuscular HGB Conc 31.3 g/dL (30.0-36.0); Mean Corpuscular Hemoglobin 25.7 pg (28.0-34.0); Mean Platelet Volume 9.4 fL (7.4-10.4); Monocytes # 0.5 10^3/uL (0.2-0.9); Monocytes % 5.6 %; Neutrophils # 3.79 10^3/uL (1.8-7.7); Neutrophils % 39.9 %; Nucleated Red Blood Cells % 0 %; Platelet Count 294 10^3/cmm (130-400); Red Blood Count 5.57 10^6/uL (4.1-5.3); Red Cell Distribution Width 15.3 % (12.1-15.1); White Blood Count 9.5 10^3/uL (4.0-10.0)
[2023-05-21 19:01] LABS: Alanine Aminotransferase 24 U/L (0-33); Albumin Level 4.4 g/dL (3.5-5.2); Alkaline Phosphatase 88 U/L (35-105); Anion Gap 14.3 (5-19); Aspartate Amino Transferase 29 U/L (0-32); Blood Urea Nitrogen 12 mg/dL (6-20); Calcium 9.8 mg/dL (8.5-10.5); Carbon Dioxide 27 mmol/L (22-29); Chloride 97 mmol/L (98-107); Globulin 2.4 g/dL (1.3-4.6); Glomerular Filtration Rate 64.5 mL/min (90-130); Glucose 100 mg/dL (65-115); Lipase 21 U/L (13-60); Osmolality Calculated 278 mOsm/kg (285-295); Potassium 4.3 mmol/L (3.5-5.1); Sodium 134 mmol/L (136-145); Total Bilirubin 0.3 mg/dL (0.15-1.2); Total Protein 6.8 g/dL (6.6-8.7)
--- NOTE | 2023-05-21 19:23 | W.ED.ABDPA2 ---
HPI - Abdominal Pain General: Chief Complaint: Abdominal Pain Stated Complaint: abd pain Time Seen by Provider: 05/21/23 19:17 Source: patient Mode of arrival: ambulatory Limitations: no limitations History of Present Illness: 57-year-old female history of chronic abdominal pain from cirrhosis. States she has had some increased pain throughout the week her oxycodone is not helping rates her pain of 6 out of 10 currently she is resting comfortably she denies any vomiting denies any diarrhea denies any worsening improving factors Associated Symptoms: Denies chills, diarrhea, dysuria, fever(s), nausea and vomiting Review of Systems Const: Denies: fever(s), chills, body aches or change in appetite ENMT: Denies: throat pain or dental pain Card: Denies: chest pain Resp: Denies: dyspnea GI: Reports: abdominal pain; Denies: nausea, vomiting or diarrhea : Denies: dysuria Musc: Denies: neck pain or back pain Skin/Breast: Denies: rash Neuro: Denies: headache(s) PFSH ED PFSH: Medical History Anxiety and depression Chronic back pain greater than 3 months duration Chronic constipation Chronic migraine Chronic nausea COPD with asthma Diabetes mellitus Diabetic neuropathy Encounter for long-term opiate analgesic use Environmental and seasonal allergies Facet arthritis of lumbar region GERD (gastroesophageal reflux disease) History of suicidal ideation HSV-2 infection Hyperlipidemia Hypokalemia Hypomagnesemia Hypothyroidism 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 Lumbar disc disease with radiculopathy Lung nodule Major depressive disorder, recurrent, moderate Sleeping difficulty Urinary frequency Vitamin D deficiency, unspecified Surgical History Hx of cholecystectomy Hx of exploratory laparotomy abdominal surgery Hx of tonsillectomy Hx of unilateral oophorectomy left benign tumor Family History Mother Stroke maternal grandmother Father Cancer Lung Family/Other Diabetes Uncle Other Breast cancer Colon cancer Family history of thyroid problem Heart disease Ovarian cancer Uterine cancer Social History Smoking and tobacco status: former smoker Quit status (tobacco): has quit using tobacco Year quit tobacco: 1996 - x 20 Years Second hand smoke exposure: Yes Smoking risk assessment/counseling performed?: No Alcohol intake: unknown Desire information about alcohol rehabilitation?: No Counseling given: No Substance/Drug Use: unknown Desire information about substance/drug rehabilitation?: No Counseling given: No Adopted: No Caregiver/support person: No Lives independently: Yes Household members: children Marital status: Number of children: 3 service: No Current occupational status: unemployed Pets and animals: Yes Pets & animals: cat(s) and dog(s) Do you think of yourself as: Straight/Heterosexual Current gender identity: Female Additional social history: - Tobacco use: Former; quit in 1999 Alcohol use: Denies Drug use: Denies Physical Exam Const: COMMON NORMALS: no acute distress, patient oriented x3 and healthy appearing HENMT: COMMON NORMALS: normocephalic and atraumatic HEAD & SCALP: normocephalic and atraumatic Eye: COMMON NORMALS: conjunctivae normal CONJUNCTIVA: Yes conjunctivae normal Neck/C-Spine: COMMON NORMALS: full ROM and supple Chest: COMMONS NORMALS: normal inspection of the chest and normal palpation of entire chest wall Resp: COMMON NORMALS: normal respiratory effort, No retractions, No use of accessory muscles and clear to auscultation bilaterally AUSCULTATION: clear to auscultation bilaterally Cardio: COMMON NORMALS: regular rate, regular rhythm and No murmurs present (Cardio) RATE: regular rate RHYTHM: regular rhythm GI: COMMON NORMALS: Normal to inspection, nondistended, normoactive bowel sounds present, Soft to palpation, non-tender and no masses PALPATION: Yes Soft to palpation Extremity: COMMON NORMALS: normal to inspection and full ROM Neuro: COMMON NORMALS: patient oriented x3, moves all extremities and no focal motor deficits Psych: COMMON NORMALS: mental status grossly normal, Normal thought process present and cooperative THOUGHT PROCESS: Normal thought process present Skin: COMMON NORMALS: no rashes or lesions noted and no wounds GENERAL SKIN EXAM: no rashes or lesions noted Course Vital Signs: Vital signs: Vital Signs Temperature 98.2 F 05/21/23 17:30 Pulse Rate 82 05/21/23 17:30 Respiratory Rate 16 05/21/23 17:30 Blood Pressure 111/66 05/21/23 17:30 Pulse Oximetry 94 05/21/23 17:30 Oxygen Delivery Me thod Room Air 05/21/23 17:30 MDM - Abdominal Pain Medical Decision Making Patient presents with abdominal pain is chronic in nature exam here is benign blood works normal did give her IM meds she is stable for discharge she is to follow-up with PCP and return if worsening Medical Records I reviewed the patient's medical records. Lab Data I reviewed the patient's lab results. 05/21/23 18:13 05/21/23 18:13 Labs/Radiology: Laboratory Results WBC 9.5 10^3/uL (4.0-10.0) 05/21/23 18:13 RBC 5.57 10^6/uL (4.1-5.3) H 05/21/23 18:13 Hgb 14.3 g/dL (11.5-15.3) 05/21/23 18:13 Hct 45.7 % (37.0-47.0) 05/21/23 18:13 MCV 82.0 fl (81-99) 05/21/23 18:13 MCH 25.7 pg (28.0-34.0) L 05/21/23 18:13 MCHC 31.3 g/dL (30.0-36.0) 05/21/23 18:13 RDW 15.3 % (12.1-15.1) H 05/21/23 18:13 Plt Count 294 10^3/cmm (130-400) 05/21/23 18:13 MPV 9.4 fL (7.4-10.4) 05/21/23 18:13 Neut % (Auto) 39.9 % 05/21/23 18:13 Lymph % (Auto) 51.5 % 05/21/23 18:13 Lane % (Auto) 5.6 % 05/21/23 18:13 Eos % (Auto) 2.2 % 05/21/23 18:13 Baso % (Auto) 0.6 % 05/21/23 18:13 Neut # (Auto) 3.79 10^3/uL (1.8-7.7) 05/21/23 18:13 Lymph # (Auto) 4.9 10^3/uL (0.8-4.8) H 05/21/23 18:13 Lane # (Auto) 0.5 10^3/uL (0.2-0.9) 05/21/23 18:13 Eos # (Auto) 0.2 10^3/uL (0.0-0.8) 05/21/23 18:13 Baso # (Auto) 0.1 10^3/uL (0.0-0.1) 05/21/23 18:13 Nucleated RBC % (auto) 0 % 05/21/23 18:13 Nucleated RBCs # 0.0 /100WBC 05/21/23 18:13 Sodium 134 mmol/L (136-145) L 05/21/23 18:13 Potassium 4.3 mmol/L (3.5-5.1) 05/21/23 18:13 Chloride 97 mmol/L (98-107) L 05/21/23 18:13 Carbon Dioxide 27 mmol/L (22-29) 05/21/23 18:13 Anion Gap 14.3 (5-19) 05/21/23 18:13 BUN 12 mg/dL (6-20) 05/21/23 18:13 Creatinine 0.9 mg/dL (0.5-0.9) 05/21/23 18:13 GFR Calculation 64.5 mL/min (90-130) L 05/21/23 18:13 Glucose 100 mg/dL (65-115) 05/21/23 18:13 Calculated Osmolality 278 mOsm/kg (285-295) L 05/21/23 18:13 Calcium 9.8 mg/dL (8.5-10.5) 05/21/23 18:13 Total Bilirubin 0.3 mg/dL (0.15-1.2) 05/21/23 18:13 AST 29 U/L (0-32) 05/21/23 18:13 ALT 24 U/L (0-33) 05/21/23 18:13 Alkaline Phosphatase 88 U/L (35-105) 05/21/23 18:13 Total Protein 6.8 g/dL (6.6-8.7) 05/21/23 18:13 Albumin 4.4 g/dL (3.5-5.2) 05/21/23 18:13 Globulin 2.4 g/dL (1.3-4.6) 05/21/23 18:13 Lipase 21 U/L (13-60) 05/21/23 18:13 Discharge Plan Discharge Patient Disposition: Home Clinical Impression: Abdominal pain Condition: Stable Prescriptions: No Action vitamin E 200 unit capsule 400 unit PO DAILY@0930 terconazole 0.8 % cream 1 appful VAGINAL .nightly Qty: 20 0RF (DME) 4 PRONG CANE, E0105 See Rx Instructions .Route .MEDSUPPLY Qty: 1 0RF Rx Instructions: As directed nystatin 100,000 unit/gram cream 1 applic topical TID Qty: 30 5RF Rx Instructions: large area under breast mupirocin 2 % ointment 1 applic topical TID Qty: 15 0RF sulfamethoxazole-trimethoprim [Bactrim DS] 800-160 mg tablet 1 tab PO BID Qty: 14 0RF albuterol sulfate 2.5 mg /3 mL (0.083 %) solution for nebulization 2.5 mg INHALATION QID PRN (Reason: wheezing) Qty: 180 2RF Ubrelvy 100 mg tablet 100 mg PO ONCE MDD 200 mg PRN (Reason: Migraine ) Qty: 30 2RF Rx Instructions: Take one tablet as needed at onset of headache, may repeat once in 24 hours. oxycodone 5 mg tablet 5 mg PO QID PRN (Reason: pain) 30 Days Qty: 120 0RF zonisamide [Zonegran] 100 mg capsule 100 mg PO .qhs Qty: 30 3RF lorazepam [Ativan] 1 mg tablet 1 mg PO DAILY Qty: 1 0RF Rx Instructions: Take 30 minutes before procedure. sucralfate [Carafate] 100 mg/mL suspension 10 ml PO QID Qty: 1000 2RF Rx Instructions: 1 hour before meals cannot swallow pills simvastatin 80 mg tablet 80 mg PO DAILY 30 Days Qty: 30 2RF rizatriptan 10 mg tablet See Rx Instructions PO .COMPLEX Qty: 10 2RF Rx Instructions: take 1 tab at onset of headache; if no relief may repeat 1 tab after at least 2 hrs; max = 3 tabs/24 hr PO propranolol 40 mg tablet 40 mg PO BID 30 Days Qty: 60 2RF potassium chloride 20 mEq tablet extended release 20 meq PO BID 30 Days Qty: 60 2RF paroxetine HCl 40 mg tablet 40 mg PO DAILY 30 Days Qty: 30 2RF pantoprazole 40 mg tablet,delayed release (DR/EC) 40 mg PO BID 30 Days Qty: 60 2RF oxybutynin chloride 5 mg tablet extended release 24hr 5 mg PO DAILY 30 Days Qty: 30 2RF ondansetron 8 mg tablet,disintegrating 8 mg PO Q12H 30 Days Qty: 60 2RF metformin 500 mg tablet 500 mg PO BID 30 Days Qty: 60 2RF melatonin 10 mg tablet 10 mg PO BEDTIME 30 Days Qty: 30 2RF magnesium 200 mg tablet 400 mg PO DAILY 30 Days Qty: 60 2RF levothyroxine 25 mcg capsule 25 mcg PO DAILY 30 Days Qty: 30 2RF hydroxyzine pamoate 25 mg capsule 25 mg PO QID PRN (Reason: anxiety) Qty: 60 2RF Rx Instructions: Take 1 capsule up to 4 times daily, if needed for anxiety symptoms Advair Diskus 250-50 mcg/dose blister with device 1 inh INHALATION BID 30 Days Qty: 60 2RF dulaglutide 1.5 mg/0.5 mL pen injector 1.5 mg SUBCUT .weekly Qty: 2 2RF Rx Instructions: dose increase docusate sodium [Colace] 100 mg capsule 100 mg PO BID PRN (Reason: constipation) 30 Days Qty: 60 5RF dapagliflozin 10 mg tablet 10 mg PO DAILY 30 Days Qty: 30 2RF cyclobenzaprine 10 mg tablet 10 mg PO BID PRN (Reason: MUSCLE SPASMS) 30 Days Qty: 60 2RF cholecalciferol (vitamin D3) 1,250 mcg (50,000 unit) capsule See Rx Instructions .ROUTE .COMPLEX Qty: 4 2RF Dose Instruction: TAKE ONE CAPSULE BY MOUTH ONCE WEEKLY Rx Instructions: TAKE ONE CAPSULE BY MOUTH ONCE WEEKLY ON FRIDAYS benzonatate 200 mg capsule 200 mg PO TID PRN (Reason: cough) 30 Days Qty: 90 2RF amitriptyline 50 mg tablet 50 mg PO DAILY Qty: 30 2RF albuterol sulfate 90 mcg/actuation HFA aerosol inhaler 2 puff INHALATION Q6H PRN (Reason: shortness of breath or wheezing) 30 Days Qty: 6.7 2RF meloxicam 15 mg tablet 15 mg PO DAILY PRN (Reason: pain) Qty: 20 0RF cyclobenzaprine 10 mg tablet 10 mg PO BID PRN (Reason: muscle spasm and pain) Qty: 20 0RF Discharge Orders: Discharge ED (Routine); Ordered 05/21/23 Ordered By: Debi Huertas Referrals: Jaleesa Diop FNP-C [Primary Care Provider] - 1-3 days Discharge Diet: Advance as tolerated Discharge Activity: Resume usual activity Patient Instructions: Abdominal Pain (ED) Coding Level of Care Code ED 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
[2023-05-21 19:35] VITALS: RESP 18; O2SAT 98
[2023-05-21] MEDS: ondansetron 2 mg/ML SDV 2 mL 4 MG IM (19:35)
[2023-05-21] MEDS: HYDROmorphone 1 mg/mL INJ 1 mL IM (19:35)
[2023-05-21 19:51] VITALS: PULSE 85; RESP 18; O2SAT 98
== END 2023-05-21 19:51 | disposition home or self-care (01) ==
PROVIDERS: Emergency Medicine; Emergency Provider Emergency Medicine; PCP Nurse Practitioner Family
DX: R10.9 Unspecified abdominal pain (principal); E11.40 Type 2 diabetes mellitus with diabetic neuropathy, unspecified; J44.9 Chronic obstructive pulmonary disease, unspecified; E78.5 Hyperlipidemia, unspecified; K74.60 Unspecified cirrhosis of liver; K75.81 Nonalcoholic steatohepatitis (NASH); Z79.84 Long term (current) use of oral hypoglycemic drugs; Z79.899 Other long term (current) drug therapy; Z87.891 Personal history of nicotine dependence
CPT/HCPCS: 36415; 80053; 83690; 85025; 96372; 99284; J1170; J2405

== ENCOUNTER → 2023-07-13 14:26 | Outpatient (BNVA) | payer BC, MEDICAID, SELFPAY | PROVIDERS: PCP Nurse Practitioner Family; Visit Provider Nurse Practitioner Family | DX: R05.9 Cough, unspecified (principal); Z20.822 Contact with and (suspected) exposure to COVID-19 | CPT/HCPCS: 87426 ==

== ENCOUNTER 2023-07-17 02:16 | Emergency (ER) | payer BC, MEDICAID, SELFPAY ==
[2023-07-17 02:20] VITALS: BP 125/79; PULSE 70; RESP 18; TEMP 36.8; O2SAT 98; BMI 39.4
--- NOTE | 2023-07-17 02:34 | ECG_ITS ---
[facility] Test Date: 2023-07-17 Pat Name: Madison Lemus Department: Room: Gender: Female Resident Care Aide: : 1965 Requested By: Shaq Lozano Order Number: [id number] Phuc MD: Emigdio Aaron M.D. Measurements Intervals [place] Rate: 67 P: 61 OK: 176 QRS: 38 QRSD: 97 T: 48 QT: 354 QTc: 375 Interpretive Statements SINUS RHYTHM LOW QRS VOLTAGE IN PRECORDIAL LEADS [QRS DEFLECTION < 1.0 mV IN CHEST LEADS] NONSPECIFIC T-WAVE ABNORMALITY Compared to ECG 10/22/2018 01:31:15 T-wave abnormality now present Electronically Signed On 07-17-2023 8:35:33 CDT by Emigdio Aaron M.D. [id number]
--- NOTE | 2023-07-17 02:34 | XRR_ITS ---
PROCEDURE INFORMATION: Exam: XR Chest Exam date and time: 07/17/2023 2:38 AM Age: 57 years old Clinical indication: Other: Covid positive; Additional info: Chest pain covid positive TECHNIQUE: Imaging protocol: Radiologic exam of the chest. Views: 1 view. COMPARISON: CR XR ribs LT mn 3V w CXR1V [id number] 06/28/2022 3:17 PM FINDINGS: Lungs: Unremarkable. No consolidation. Pleural spaces: Unremarkable. No pleural effusion. No pneumothorax. Heart/Mediastinum: Unremarkable. No cardiomegaly. Bones/joints: Unremarkable. XR/XR chest 1V portable [id number] IMPRESSION: No acute findings.
[2023-07-17 02:57] LABS: Basophils % 0.2 %; Hematocrit 45.2 % (36-47); Lymphocytes # 2.4 10^3/uL (0.8-4.8); Lymphocytes % 28.4 %; Mean Corpuscular HGB Conc 31.4 g/dL (30-55); Mean Corpuscular Hemoglobin 25.6 pg (27-33); Mean Corpuscular Volume 81.4 fl (85-98); Mean Platelet Volume 9.3 fL (7.4-10.4); Monocytes # 0.6 10^3/uL (0.2-0.9); Monocytes % 7.2 %; Neutrophils # 5.48 10^3/uL (1.8-7.7); Nucleated Red Blood Cells % 0 %; Platelet Count 263 10^3/cmm (157-399); Red Blood Count 5.55 10^6/uL (3.85-5.65); Red Cell Distribution Width 14.8 % (12.1-15.1); White Blood Count 8.58 10^3/uL (3.29-11.43)
--- NOTE | 2023-07-17 03:10 | ED_ITS ---
HPI - Chest Pain General: Chief Complaint: Chest Pain Stated Complaint: covid positive, shortness of breath Time Seen by Provider: 07/17/23 02:25 History of Present Illness: Patient presents ER with complaints of chest pain. Patient states she was diagnosed with COVID on Sunday and has had chest pain bilaterally this radiating to her back worse when she coughs or takes a big deep breath. Patient denies any fever chills shortness of breath nausea vomiting diarrhea diaphoresis. 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 Lumbar disc disease with radiculopathy Lung nodule Major depressive disorder, recurrent, moderate Sleeping difficulty Urinary frequency Vitamin D deficiency, unspecified Surgical History Hx of cholecystectomy Hx of exploratory laparotomy abdominal surgery Hx of tonsillectomy Hx of unilateral oophorectomy left benign tumor Family History Mother Stroke maternal grandmother Father Cancer Lung Family/Other Diabetes Uncle Other Breast cancer Colon cancer Family history of thyroid problem Heart disease Ovarian cancer Uterine cancer Social History Smoking and tobacco status: former smoker Quit status (tobacco): has quit using tobacco Year quit tobacco: 1996PD x 20 Years Second hand smoke exposure: Yes Smoking risk assessment/counseling performed?: No Alcohol intake: unknown Desire information about alcohol rehabilitation?: No Counseling given: No Substance/Drug Use: unknown Desire information about substance/drug rehabilitation?: No Counseling given: No Adopted: No Caregiver/support person: No Lives independently: Yes Household members: children Marital status: Number of children: 3 service: No Current occupational status: unemployed Pets and animals: Yes Pets & animals: cat(s) and dog(s) Do you think of yourself as: Straight/Heterosexual Current gender identity: Female Additional social history: - Tobacco use: Former; quit in 1999 Alcohol use: Denies Drug use: Denies Physical Exam Const: COMMON NORMALS: no acute distress, average body habitus, patient oriented x3, no limitations, healthy appearing, alert and well nourished HENMT: COMMON NORMALS: normocephalic, atraumatic, hearing grossly normal bilaterally, external ears normal, Normal external nose present and moist oral mucous membranes HEAD & SCALP: normocephalic and atraumatic NOSE: Normal external nose present EXTERNAL EAR: Yes external ears normal Neck/C-Spine: COMMON NORMALS: no JVD Chest: COMMONS NORMALS: normal inspection of the chest and normal palpation of entire chest wall Resp: COMMON NORMALS: normal respiratory effort, No retractions, No use of accessory muscles and clear to auscultation bilaterally AUSCULTATION: clear to auscultation bilaterally Cardio: COMMON NORMALS: no JVD, regular rate, regular rhythm, S1 normal heart sound present, S2 normal heart sound present, No gallops present (Cardio), No clicks present (Cardio), No murmurs present (Cardio) and No rub (Cardio) RATE: regular rate RHYTHM: regular rhythm HEART SOUNDS: S1 normal heart sound present and S2 normal heart sound present GI: COMMON NORMALS: Normal to inspection, nondistended, normoactive bowel sounds present, Soft to palpation, non-tender and No hepatosplenomegaly present PALPATION: Yes Soft to palpation and Yes No hepatosplenomegaly present : COMMON NORMALS: Yes no CVA tenderness BLADDER/KIDNEY EXAM: Yes no CVA tenderness Back/Pelvis: COMMON NORMALS: no CVA tenderness Neuro: COMMON NORMALS: patient oriented x3 SENSORIUM/ORIENTATION: Yes alert Course Vital Signs: Vital signs: Vital Signs Temperature 98.3 F 07/17/23 02:20 Pulse Rate 70 07/17/23 02:20 Respiratory Rate 18 07/17/23 02:20 Blood Pressure 125/79 07/17/23 02:20 Pulse Oximetry 98 07/17/23 02:20 Oxygen Delivery Me thod Room Air 07/17/23 02:20 MDM - Chest Pain Medical Decision Making Patient presents to the ER with complaints of chest pain bilaterally that radiates into her back when she takes a big deep breath. She is positive for COVID. She was worked up in a standard chest pain fashion included lab work chest x-ray and and serial enzymes. All of which was benign. Patient's pain is reproducible with palpation is felt that this is noncardiac in nature. Patient be discharged home with diagnosis of atypical chest pain. Differential Diagnosis Unlikely acute massive pulmonary embolism, acute respiratory failure, acute myocardial infarction, cardiac arrest or sudden cardiac Medical Records I reviewed the patient's medical records. Lab Data I reviewed the patient's lab results. 07/17/23 02:48 07/17/23 02:48 Radiology Impressions Chest X-Ray 07/17/23 02:34 IMPRESSION: No acute findings. Laboratory Results WBC 8.58 10^3/uL (3.29-11.43) 07/17/23 02:48 RBC 5.55 10^6/uL (3.85-5.65) 07/17/23 02:48 Hgb 14.20 g/dL (11.27-16.99) 07/17/23 02:48 Hct 45.2 % (36-47) 07/17/23 02:48 MCV 81.4 fl (85-98) L 07/17/23 02:48 MCH 25.6 pg (27-33) L 07/17/23 02:48 MCHC 31.4 g/dL (30-55) 07/17/23 02:48 RDW 14.8 % (12.1-15.1) 07/17/23 02:48 Plt Count 263 10^3/cmm (157-399) 07/17/23 02:48 MPV 9.3 fL (7.4-10.4) 07/17/23 02:48 Neut % (Auto) 64.0 % 07/17/23 02:48 Lymph % (Auto) 28.4 % 07/17/23 02:48 [place] % (Auto) 7.2 % 07/17/23 02:48 Eos % (Auto) 0.0 % 07/17/23 02:48 Baso % (Auto) 0.2 % 07/17/23 02:48 Neut # (Auto) 5.48 10^3/uL (1.8-7.7) 07/17/23 02:48 Lymph # (Auto) 2.4 10^3/uL (0.8-4.8) 07/17/23 02:48 [place] # (Auto) 0.6 10^3/uL (0.2-0.9) 07/17/23 02:48 Eos # (Auto) 0.0 10^3/uL (0.0-0.8) 07/17/23 02:48 Baso # (Auto) 0.0 10^3/uL (0.0-0.1) 07/17/23 02:48 Nucleated RBC % (auto) 0 % 07/17/23 02:48 Nucleated RBCs # 0.0 /100WBC 07/17/23 02:48 Sodium 139 mmol/L (136-145) 07/17/23 02:48 Potassium 4.3 mmol/L (3.5-5.1) 07/17/23 02:48 Chloride 102 mmol/L (98-107) 07/17/23 02:48 Carbon Dioxide 26 mmol/L (22-29) 07/17/23 02:48 Anion Gap 15.3 (5-19) 07/17/23 02:48 BUN 16 mg/dL (6-20) 07/17/23 02:48 Creatinine 0.8 mg/dL (0.5-0.9) 07/17/23 02:48 GFR Calculation 73.9 mL/min (90-130) L 07/17/23 02:48 Glucose 217 mg/dL (65-115) H 07/17/23 02:48 Calculated Osmolality 296 mOsm/kg (285-295) H 07/17/23 02:48 Calcium 9.5 mg/dL (8.5-10.5) 07/17/23 02:48 Total Bilirubin 0.2 mg/dL (0.15-1.2) 07/17/23 02:48 AST 31 U/L (0-32) 07/17/23 02:48 ALT 45 U/L (0-33) H 07/17/23 02:48 Alkaline Phosphatase 97 U/L (35-105) 07/17/23 02:48 Troponin T Baseline 6 ng/L (0-10) 07/17/23 02:48 Total Protein 6.9 g/dL (6.6-8.7) 07/17/23 02:48 Albumin 4.4 g/dL (3.5-5.2) 07/17/23 02:48 Globulin 2.5 g/dL (1.3-4.6) 07/17/23 02:48 All radiology interpretation(s) finalized by discharge EKG Data EKG 1: I personally reviewed and interpreted this EKG as follows: EKG interpretation date: 07/17/23 EKG interpretation time: 02:25 Prior EKG tracings: not available for review Interpretation: EKG Computer generated interpretation: EKG showed ventricular rate 67 bpm, [place] interval 176, QRS duration 97, QTc 369, sinus rhythm, nonspecific T wave abnormality. Discharge Plan Discharge Patient Disposition: Home Clinical Impression: Chest pain, non-cardiac Condition: Stable Prescriptions: No Action vitamin E 200 unit capsule 400 unit PO DAILY@0930 terconazole 0.8 % cream 1 appful VAGINAL .nightly Qty: 20 0RF (DME) 4 PRONG CANE, E0105 See Rx Instructions .Route .MEDSUPPLY Qty: 1 0RF Rx Instructions: As directed cephalexin 500 mg capsule 500 mg PO TID Qty: 21 0RF nystatin 100,000 unit/gram cream 1 applic topical TID Qty: 30 5RF Rx Instructions: large area under breast mupirocin 2 % ointment 1 applic topical TID Qty: 15 0RF sulfamethoxazole-trimethoprim [Bactrim DS] 800-160 mg tablet 1 tab PO BID Qty: 14 0RF bupropion HCl [Wellbutrin XL] 150 mg tablet extended release 24 hr 150 mg PO QAM Qty: 30 2RF azithromycin 250 mg tablet See Rx Instructions PO .COMPLEX Qty: 6 0RF Rx Instructions: For 250 mg dose pack: take 500 mg today (day 1), then 250 mg for 4 days (days 2-5) PO prednisone 20 mg tablet 20 mg PO BID Qty: 10 0RF promethazine-DM 6.25-15 mg/5 mL syrup 5 - 10 ml PO Q6H PRN (Reason: cough) Qty: 240 0RF albuterol sulfate 2.5 mg /3 mL (0.083 %) solution for nebulization 2.5 mg INHALATION QID PRN (Reason: wheezing) Qty: 180 2RF Ubrelvy 100 mg tablet 100 mg PO ONCE MDD 200 mg PRN (Reason: Migraine ) Qty: 30 2RF Rx Instructions: Take one tablet as needed at onset of headache, may repeat once in 24 hours. oxycodone 5 mg tablet 5 mg PO QID PRN (Reason: pain) 30 Days Qty: 120 0RF zonisamide [Zonegran] 100 mg capsule 100 mg PO .qhs Qty: 30 3RF lorazepam [Ativan] 1 mg tablet 1 mg PO DAILY Qty: 1 0RF Rx Instructions: Take 30 minutes before procedure. sucralfate [Carafate] 100 mg/mL suspension 10 ml PO QID Qty: 1000 2RF Rx Instructions: 1 hour before meals cannot swallow pills simvastatin 80 mg tablet 80 mg PO DAILY 30 Days Qty: 30 2RF rizatriptan 10 mg tablet See Rx Instructions PO .COMPLEX Qty: 10 2RF Rx Instructions: take 1 tab at onset of headache; if no relief may repeat 1 tab after at least 2 hrs; max = 3 tabs/24 hr PO propranolol 40 mg tablet 40 mg PO BID 30 Days Qty: 60 2RF potassium chloride 20 mEq tablet extended release 20 meq PO BID 30 Days Qty: 60 2RF pantoprazole 40 mg tablet,delayed release (DR/EC) 40 mg PO BID 30 Days Qty: 60 2RF oxybutynin chloride 5 mg tablet extended release 24hr 5 mg PO DAILY 30 Days Qty: 30 2RF ondansetron 8 mg tablet,disintegrating 8 mg PO Q12H 30 Days Qty: 60 2RF metformin 500 mg tablet 500 mg PO BID 30 Days Qty: 60 2RF melatonin 10 mg tablet 10 mg PO BEDTIME 30 Days Qty: 30 2RF magnesium 200 mg tablet 400 mg PO DAILY 30 Days Qty: 60 2RF levothyroxine 25 mcg capsule 25 mcg PO DAILY 30 Days Qty: 30 2RF hydroxyzine pamoate 25 mg capsule 25 mg PO QID PRN (Reason: anxiety) Qty: 60 2RF Rx Instructions: Take 1 capsule up to 4 times daily, if needed for anxiety symptoms Advair Diskus 250-50 mcg/dose blister with device 1 inh INHALATION BID 30 Days Qty: 60 2RF dulaglutide 1.5 mg/0.5 mL pen injector 1.5 mg SUBCUT .weekly Qty: 2 2RF Rx Instructions: dose increase docusate sodium [Colace] 100 mg capsule 100 mg PO BID PRN (Reason: constipation) 30 Days Qty: 60 5RF dapagliflozin propanediol 10 mg tablet 10 mg PO DAILY 30 Days Qty: 30 2RF cyclobenzaprine 10 mg tablet 10 mg PO BID PRN (Reason: MUSCLE SPASMS) 30 Days Qty: 60 2RF cholecalciferol (vitamin D3) 1,250 mcg (50,000 unit) capsule See Rx Instructions .ROUTE .COMPLEX Qty: 4 2RF Dose Instruction: TAKE ONE CAPSULE BY MOUTH ONCE WEEKLY Rx Instructions: TAKE ONE CAPSULE BY MOUTH ONCE WEEKLY ON FRIDAYS benzonatate 200 mg capsule 200 mg PO TID PRN (Reason: cough) 30 Days Qty: 90 2RF amitriptyline 50 mg tablet 50 mg PO DAILY Qty: 30 2RF albuterol sulfate 90 mcg/actuation HFA aerosol inhaler 2 puff INHALATION Q6H PRN (Reason: shortness of breath or wheezing) 30 Days Qty: 6.7 2RF meloxicam 15 mg tablet 15 mg PO DAILY PRN (Reason: pain) Qty: 20 0RF cyclobenzaprine 10 mg tablet 10 mg PO BID PRN (Reason: muscle spasm and pain) Qty: 20 0RF Discharge Orders: Discharge ED (Routine); Ordered 07/17/23 Ordered By: Shaq Lozano Referrals: Jaleesa Diop FNP-C [Primary Care Provider] - 1 week Patient Instructions: Chest Pain - Noncardiac Activity Restrictions/Additional Instructions: Please continue your medicines from your PCP as directed. Please follow-up with your PCP within the next 7 days for further evaluation and treatment as needed. 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
[2023-07-17 03:16] LABS: Troponin(5th) Baseline 6 ng/L (0-10)
[2023-07-17 03:18] LABS: Alanine Aminotransferase 45 U/L (0-33); Albumin Level 4.4 g/dL (3.5-5.2); Alkaline Phosphatase 97 U/L (35-105); Anion Gap 15.3 (5-19); Aspartate Amino Transferase 31 U/L (0-32); Blood Urea Nitrogen 16 mg/dL (6-20); Calcium 9.5 mg/dL (8.5-10.5); Carbon Dioxide 26 mmol/L (22-29); Chloride 102 mmol/L (98-107); Globulin 2.5 g/dL (1.3-4.6); Glomerular Filtration Rate 73.9 mL/min (90-130); Glucose 217 mg/dL (65-115); Osmolality Calculated 296 mOsm/kg (285-295); Potassium 4.3 mmol/L (3.5-5.1); Sodium 139 mmol/L (136-145); Total Bilirubin 0.2 mg/dL (0.15-1.2); Total Protein 6.9 g/dL (6.6-8.7)
[2023-07-17 04:22] VITALS: BP 125/79; PULSE 70; RESP 18; TEMP 36.8; O2SAT 98
== END 2023-07-17 04:22 | disposition home or self-care (01) ==
PROVIDERS: Emergency Provider Emergency Medicine; PCP Nurse Practitioner Family
DX: R07.89 Other chest pain (principal); Z79.84 Long term (current) use of oral hypoglycemic drugs; Z87.891 Personal history of nicotine dependence; J44.9 Chronic obstructive pulmonary disease, unspecified; E11.9 Type 2 diabetes mellitus without complications; E78.5 Hyperlipidemia, unspecified
CPT/HCPCS: 36415; 71045; 80053; 84484; 85025; 93005; 99285

== ENCOUNTER → 2023-08-31 10:16 | Outpatient (BNVA) | payer BC, MEDICAID, SELFPAY | PROVIDERS: PCP Nurse Practitioner Family; Visit Provider Nurse Practitioner Family | DX: E55.9 Vitamin D deficiency, unspecified (principal); E11.9 Type 2 diabetes mellitus without complications; E78.2 Mixed hyperlipidemia; R10.9 Unspecified abdominal pain; G89.29 Other chronic pain; E11.42 Type 2 diabetes mellitus with diabetic polyneuropathy; I10 Essential (primary) hypertension; J44.9 Chronic obstructive pulmonary disease, unspecified; R05.3 Chronic cough; F41.9 Anxiety disorder, unspecified; F32.9 Major depressive disorder, single episode, unspecified; E87.6 Hypokalemia; E83.42 Hypomagnesemia; R11.0 Nausea; R35.0 Frequency of micturition; G47.9 Sleep disorder, unspecified; K59.09 Other constipation; J30.89 Other allergic rhinitis; G43.709 Chronic migraine without aura, not intractable, without status migrainosus | CPT/HCPCS: 80053; 80061; 83036; 84443; 85025 ==

== ENCOUNTER → 2023-11-29 13:36 | Outpatient (BNVA) | payer BC, MEDICAID, SELFPAY | PROVIDERS: PCP Nurse Practitioner Family; Visit Provider Nurse Practitioner Family | DX: E78.2 Mixed hyperlipidemia (principal); G43.709 Chronic migraine without aura, not intractable, without status migrainosus; E87.6 Hypokalemia; R35.0 Frequency of micturition; G47.9 Sleep disorder, unspecified; E83.42 Hypomagnesemia; E03.9 Hypothyroidism, unspecified; J45.909 Unspecified asthma, uncomplicated; K59.09 Other constipation; M54.9 Dorsalgia, unspecified; G89.29 Other chronic pain; J44.9 Chronic obstructive pulmonary disease, unspecified; E55.9 Vitamin D deficiency, unspecified; L98.9 Disorder of the skin and subcutaneous tissue, unspecified; R10.9 Unspecified abdominal pain; E11.42 Type 2 diabetes mellitus with diabetic polyneuropathy; I10 Essential (primary) hypertension; R05.3 Chronic cough; F41.9 Anxiety disorder, unspecified; F32.9 Major depressive disorder, single episode, unspecified; R11.0 Nausea; J30.89 Other allergic rhinitis; M54.2 Cervicalgia | CPT/HCPCS: 80053; 80061; 83036; 84443; 85025 ==

== ENCOUNTER → 2023-12-19 10:11 | Outpatient (BNVA) | payer BC, MEDICAID, SELFPAY | PROVIDERS: PCP Nurse Practitioner Family; Visit Provider Nurse Practitioner Family | DX: M54.2 Cervicalgia (principal) | CPT/HCPCS: 72040 ==

== ENCOUNTER → 2024-03-18 14:21 | Outpatient (BNVA) | payer BC, MEDICAID, SELFPAY | PROVIDERS: PCP Nurse Practitioner Family; Visit Provider Nurse Practitioner Family | DX: E11.9 Type 2 diabetes mellitus without complications (principal); E78.2 Mixed hyperlipidemia; G43.709 Chronic migraine without aura, not intractable, without status migrainosus; R35.0 Frequency of micturition; G47.9 Sleep disorder, unspecified; E83.42 Hypomagnesemia; E03.9 Hypothyroidism, unspecified; J45.909 Unspecified asthma, uncomplicated; K59.09 Other constipation; M54.9 Dorsalgia, unspecified; G89.29 Other chronic pain; J44.9 Chronic obstructive pulmonary disease, unspecified; E87.6 Hypokalemia; R10.9 Unspecified abdominal pain; E11.42 Type 2 diabetes mellitus with diabetic polyneuropathy; I10 Essential (primary) hypertension; R05.3 Chronic cough; F41.9 Anxiety disorder, unspecified; F32.9 Major depressive disorder, single episode, unspecified; R11.0 Nausea; J30.89 Other allergic rhinitis; E55.9 Vitamin D deficiency, unspecified | CPT/HCPCS: 80053; 80061; 83036; 84443; 85025 ==

== ENCOUNTER → 2024-03-27 11:35 | Outpatient (BNVA) | payer BC, MEDICAID, SELFPAY | PROVIDERS: PCP Nurse Practitioner Family; Visit Provider Nurse Practitioner Family | DX: E03.9 Hypothyroidism, unspecified (principal); R53.83 Other fatigue; R71.8 Other abnormality of red blood cells | CPT/HCPCS: 82746; 83540 ==

== ENCOUNTER → 2024-05-14 08:51 | Outpatient (BNVA) | payer BC, MEDICAID, SELFPAY | PROVIDERS: PCP Nurse Practitioner Family; Referring Provider Nurse Practitioner Family; Visit Provider Psychiatry & Neurology Neurology | DX: G43.709 Chronic migraine without aura, not intractable, without status migrainosus (principal); E55.9 Vitamin D deficiency, unspecified; J45.40 Moderate persistent asthma, uncomplicated; G89.29 Other chronic pain; K75.81 Nonalcoholic steatohepatitis (NASH); K74.60 Unspecified cirrhosis of liver; E53.8 Deficiency of other specified B group vitamins; G43.011 Migraine without aura, intractable, with status migrainosus | CPT/HCPCS: 36415; 82140; 82306; 82607; 82746; 83090; 83735; 83921 ==

== ENCOUNTER 2024-06-04 14:56 | Outpatient (CLI) | payer BC, MEDICAID, SELFPAY ==
--- NOTE | 2024-06-04 14:45 | USCV_ITS ---
Madison Lemus Age: 58 Gender: F : 1965 Exam Date: 06/04/2024 15:02 Ordering Phys: Rustam Lucas MD Technologist: CT Exam Location: [facility] [place]_ Indication: Headaches Risk Factors: Previous Vascular Surgery: Right Brachial BP: / Left Brachial BP: / Right Left Velocity (cm/s) Spectral Plaque Velocity (cm/s) Spectral Plaque Syst/Diast Broadening Syst/Diast Broadening 79.60/ 17.40 Prox CCA 85.10 / 23.20 75.80/ 23.60 Mid CCA 64.40 / 25.50 76.40/ 21.90 Distal CCA 71.40 / 21.30 57.20/ 13.70 Prox ICA 64.60 / 24.30 62.00/ 20.00 Mid ICA 67.80 / 30.00 74.20/ 30.30 Distal ICA 72.80 / 35.90 74.20 ECA 72.70 1.00 ICA/CCA 1.00 Antegrade Vertebral Antegrade 47.00/ 16.60 cm/s 34.00/ 13.60 cm/s Tri Subclavian Tri 80.10 88.90 FINDINGS No significant elevation of systolic or diastolic velocities. Waveforms are normal. Mild carotid atherosclerosis. CONCLUSIONS Bilateral ICA stenosis less than 50%. Mild carotid atherosclerosis. Dr. Lindsey Robertson DO (Electronically Signed) Final Date: 04 June 2024 15:26 S
== END 2024-06-04 14:57 | disposition home or self-care (01) ==
LOC: RAD 14:57
PROVIDERS: PCP Nurse Practitioner Family; Visit Provider Psychiatry & Neurology Neurology
DX: G43.709 Chronic migraine without aura, not intractable, without status migrainosus (principal); E55.9 Vitamin D deficiency, unspecified
CPT/HCPCS: 93880

== ENCOUNTER → 2024-07-04 11:12 | Outpatient (BNVA) | payer BC, MEDICAID, SELFPAY | PROVIDERS: PCP Nurse Practitioner Family; Visit Provider Nurse Practitioner Family | DX: E11.9 Type 2 diabetes mellitus without complications (principal) | CPT/HCPCS: 80053; 80061; 83036; 84443; 85025 ==

== ENCOUNTER 2024-08-22 13:21 | Outpatient (CLI) | payer BC, MEDICAID, SELFPAY ==
--- NOTE | 2024-08-22 13:26 | XR_ITS ---
WS: [id number] Exam: XR abdomen 1V* [id number] Date/Time of Exam: 08/22/2024 1:33 PM Reason For Exam: R19.7 - Diarrhea, unspecified No bowel obstruction or pneumoperitoneum. No sign of organ enlargement. Surgical clips in the upper R IGHT abdomen suggesting prior cholecystectomy. Opacity in the LEFT abdomen probably representing medi cation in the GI tract. Bony structures are intact. XR/XR abdomen 1V* [id number] IMPRESSION: 1. No acute abdominal process.
[2024-08-22 13:36] LABS: Basophils # 0.1 10^3/uL (0.0-0.1); Basophils % 0.5 %; Eosinophils # 0.1 10^3/uL (0.0-0.8); Eosinophils % 0.8 %; Hematocrit 47.3 % (36-47); Lymphocytes # 3.8 10^3/uL (0.8-4.8); Lymphocytes % 37.2 %; Mean Corpuscular HGB Conc 32.8 g/dL (30-55); Mean Corpuscular Hemoglobin 26.6 pg (27-33); Mean Corpuscular Volume 81.3 fl (85-98); Mean Platelet Volume 9.3 fL (7.4-10.4); Monocytes # 0.5 10^3/uL (0.2-0.9); Monocytes % 4.8 %; Neutrophils # 5.75 10^3/uL (1.8-7.7); Neutrophils % 56.5 %; Nucleated Red Blood Cells % 0 %; Platelet Count 340 10^3/cmm (157-399); Red Blood Count 5.82 10^6/uL (3.85-5.65); Red Cell Distribution Width 14.8 % (12.1-15.1); White Blood Count 10.17 10^3/uL (3.29-11.43)
[2024-08-22 13:52] LABS: Alanine Aminotransferase 16 U/L (0-33); Albumin Level 4.4 g/dL (3.5-5.2); Alkaline Phosphatase 81 U/L (35-105); Anion Gap 17.3 (5-19); Aspartate Amino Transferase 20 U/L (0-32); Blood Urea Nitrogen 11 mg/dL (6-20); Calcium 9.6 mg/dL (8.5-10.5); Carbon Dioxide 25 mmol/L (22-29); Chloride 100 mmol/L (98-107); Globulin 2.7 g/dL (1.3-4.6); Glomerular Filtration Rate 73.7 mL/min (90-130); Glucose 178 mg/dL (65-115); Lipase 20 U/L (13-60); Osmolality Calculated 290 mOsm/kg (285-295); Potassium 4.3 mmol/L (3.5-5.1); Sodium 138 mmol/L (136-145); Total Bilirubin 0.4 mg/dL (0.15-1.2); Total Protein 7.1 g/dL (6.6-8.7)
[2024-08-24 08:04] LABS: Amylase 42 U/L (21-101)
== END 2024-08-22 13:22 | disposition home or self-care (01) ==
LOC: LAB 13:23
PROVIDERS: PCP Nurse Practitioner Family; Visit Provider Nurse Practitioner Family
DX: R19.7 Diarrhea, unspecified (principal); R10.10 Upper abdominal pain, unspecified; R10.13 Epigastric pain
CPT/HCPCS: 36415; 74018; 80053; 82150; 83690; 85025

== ENCOUNTER 2024-08-28 12:25 | Outpatient (CLI) | payer BC, MEDICAID, SELFPAY ==
[2024-08-28 13:31] LABS: Iron 65 ug/dL (37-145)
[2024-08-30 20:20] LABS: Beef (27) IgE 8.14 kU/L; Beef Class 3; Lamb (F88) IgE 3.42 kU/L; Lamb Class 2; Pork Class 3
== END 2024-08-28 12:26 | disposition home or self-care (01) ==
LOC: LAB 12:26
PROVIDERS: PCP Nurse Practitioner Family; Visit Provider Surgery
DX: R10.9 Unspecified abdominal pain (principal); R71.8 Other abnormality of red blood cells
CPT/HCPCS: 36415; 83540; 86003; 86008

== ENCOUNTER 2024-09-01 11:00 | Outpatient (CLI) | payer BC, MEDICAID, SELFPAY ==
--- NOTE | 2024-09-01 11:00 | CT_ITS ---
WS: [id number] CT ABDOMEN WITH CONTRAST HISTORY: K21.0 - Gastro-esophageal reflux disease with esophagitis Contiguous single phase 5 mm axial imaging performed to the abdomen. Oral contrast has been provided. Coronal and sagittal reformats are submitted. All CT scans at [facility] use at least one of these dose optimization techniques: automated exposure control; mA and/or kV adjustment per patient size (includes targeted exams where dose is matched to clinical indication); or iterative reconstruct ion. IV CONTRAST: Omnipaque 350; 100 mL IV. Oral contrast: Yes. DLP: 363.45 mGy.cm COMPARISON: 04/08/2022 Lower thorax: Lung bases are clear. Heart is normal size. Small hiatal hernia. Liver/biliary system: Normal size with no intrahepatic dilatation. Gallbladder: Prior cholecystectomy. Pancreas: Normal size pancreas and pancreatic duct. No adjacent inflammation. Spleen: Normal size spleen. No mass or infarct. Adrenal glands: Normal. Right kidney: Normal. Left kidney: Normal. Aorta: Mild atherosclerosis aorta. Lymphadenopathy: None. Free fluid: None. GI tract: Stomach is well distended with oral contrast. Layering products within the stomach. Narrowi ng of the stomach antrum. This could be an area of peristalsis or an obstructing lesion. Proximal sma ll bowel is negative. Abdominal wall: Unremarkable abdominal wall. No hernia. Visualized osseous structures: Unremarkable. CT/CT abdomen w con* [id number] IMPRESSION: 1. No acute abnormality within the abdomen. 2. Small hiatal hernia. 3. Prior cholecystectomy. 4. Slightly over distended stomach may be due to recent ingestion of food and the oral contrast. There is increased soft tissue in the antrum with more proxi mal dilatation of the stomach. Consider upper endoscopy to better evaluate the stomach antrum for possible neoplasm. There is no complete obstruction as oral contrast is present in the proximal small bowel. This could be an area of peris talsis.
[2024-09-01] MEDS: iohexol 350 mg/mL 500 mL Btl (per mL) PO (11:27)
[2024-09-01] MEDS: iohexol 350 mg/mL 500 mL Btl (per mL) IV (12:00)
== END 2024-09-01 11:09 | disposition home or self-care (01) ==
PROVIDERS: PCP Nurse Practitioner Family; Visit Provider Nurse Practitioner Family
DX: K31.A11 Gastric intestinal metaplasia without dysplasia, involving the antrum (principal); K21.00 Gastro-esophageal reflux disease with esophagitis, without bleeding; R10.13 Epigastric pain; R19.7 Diarrhea, unspecified; R63.4 Abnormal weight loss; Z90.49 Acquired absence of other specified parts of digestive tract
CPT/HCPCS: 74160

== ENCOUNTER 2024-09-24 10:05 | Day surgery (SDC) | payer BC, MEDICAID, SELFPAY ==
[2024-09-24 10:24] VITALS: BP 106/70; PULSE 78; RESP 18; TEMP 36.1; O2SAT 97
--- NOTE | 2024-09-24 10:25 | ANES.PREANE2 ---
Pre-Anesthetic Assessment Height/Weight: Height 1.5 m Operation Date: 09/24/24 11:00 Proposed Procedures p EGD 60431, 22300, G0105, K21.0, R11.0, R10.9, R19.7, k92.9(Not Applicable) - DO ayo Hector Colonoscopy(Not Applicable) - Chandler Giraldo DO Familial anesthetic complications: None Was Beta Aziza taken within 24 hours: N/A Was Clonidine taken within 24 hours: N/A Last intake: > 8 hrs Social No alcohol and No tobacco former smoker Exam alert, oriented x 3, clear to auscultation bilaterally and regular rate & rhythm Airway Mallampati: Class III Dentition: other (no teeth) Pulmonary Asthma and Chronic Obstructive Pulmonary Disease (Does not wear O2, no steroid use or hospital admissions w/ in last year) Hepatic VOGEL GI Gastroesophageal Reflux Disease Metabolic Morbid Obesity and Thyroid Disease Anesthetic Plan ASA status: 3 Anesthesia: MAC Risk of > 500 ml blood loss (7ml/kg in children): No Medications/Allergies Home Medications Medication Instructions Recorded Confirmed Last Taken Type vitamin E 200 unit capsule 400 unit PO DAILY@0930 11/03/19 09/22/24 09/22/24 History terconazole 0.8 % vaginal cream 1 appful vaginal .nightly #20 grams 03/05/20 09/22/24 Unknown Rx 4 PRONG CANE, E0105 #1 ea 05/16/21 09/02/24 Unknown Rx mupirocin 2 % topical ointment 1 applic topical TID #15 grams 04/11/23 09/24/24 Unknown Rx nystatin 100,000 unit/gram topical 1 applic topical TID #30 grams 04/11/23 09/22/24 Unknown Rx cream bupropion HCl 150 mg 24 hr tablet, 150 mg PO QAM #30 tabs 07/04/23 09/22/24 09/23/24 Rx extended release (Wellbutrin XL) ketoconazole 2 % topical cream 1 applic topical BID #15 grams 08/31/23 09/24/24 09/23/24 Rx Diabetic shoes with 3 inserts #1 ea 06/16/24 09/02/24 Unknown Rx albuterol sulfate 2.5 mg/3 mL 2.5 mg (3 mL) inhalation QID PRN 07/04/24 09/22/24 Unknown Rx (0.083 %) solution for nebulization wheezing #180 mL albuterol sulfate 90 mcg/actuation 2 puff inhalation Q6H PRN 07/04/24 09/22/24 09/21/24 Rx aerosol inhaler shortness of breath or wheezing 30 days #6.7 grams benzonatate 200 mg capsule 200 mg PO TID PRN cough 30 days 07/04/24 09/22/24 09/22/24 Rx #90 caps cyclobenzaprine 10 mg tablet 10 mg PO BID PRN MUSCLE SPASMS 30 07/04/24 09/22/24 09/22/24 Rx days #60 tabs docusate sodium 100 mg capsule 100 mg PO BID PRN constipation 30 07/04/24 09/22/24 09/22/24 Rx (Colace) days #60 caps fluticasone 250 mcg-salmeterol 50 1 inh inhalation BID 30 days #60 ea 07/04/24 09/22/24 09/23/24 Rx mcg/dose blistr powdr for inhalation (Advair Diskus) hydroxyzine pamoate 25 mg capsule 25 mg PO QID PRN anxiety #60 caps 07/04/24 09/22/24 09/23/24 Rx levothyroxine 25 mcg capsule 25 mcg PO DAILY 30 days #30 caps 07/04/24 09/22/24 09/24/24 Rx melatonin 10 mg tablet 10 mg PO BEDTIME 30 days #30 tabs 07/04/24 09/22/24 09/23/24 Rx metformin 500 mg tablet 500 mg PO BID 30 days #60 tabs 07/04/24 09/22/24 09/23/24 Rx pantoprazole 40 mg tablet,delayed 40 mg PO BID 30 days #60 tabs 07/04/24 09/22/24 09/23/24 Rx release potassium chloride 20 mEq 20 meq PO BID 30 days #60 tabs 07/04/24 09/22/24 09/23/24 Rx tablet,extended release propranolol 40 mg tablet 40 mg PO BID 30 days #60 tabs 07/04/24 09/22/24 09/24/24 Rx simvastatin 80 mg tablet 80 mg PO DAILY 30 days #30 tabs 07/04/24 09/22/24 09/23/24 Rx sucralfate 1 gram tablet (Carafate) 1 g PO BID #90 tabs 08/14/24 09/22/24 09/23/24 Rx loperamide 2 mg capsule (Imodium 2 mg PO QID PRN loose stool #20 09/02/24 09/22/24 09/22/24 Rx A-D) caps oxybutynin chloride 5 mg 5 mg PO DAILY 30 days #30 tabs 09/08/24 09/22/24 09/23/24 Rx tablet,extended release 24 hr cholecalciferol (vitamin D3) 1,250 1,250 mcg PO DAILY 09/22/24 09/22/24 09/23/24 History mcg (50,000 unit) capsule dapagliflozin propanediol 10 mg 10 mg PO DAILY 09/22/24 09/22/24 09/23/24 History tablet (Farxiga) diclofenac sodium 1 % topical gel 2 g topical QID PRN Pain 09/22/24 09/22/24 Unknown History (Voltaren Arthritis Pain) dulaglutide 3 mg/0.5 mL 3 mg SUBCUT .weekly 09/22/24 09/22/24 09/12/24 History subcutaneous pen injector (Trulicity) fremanezumab-vfrm 225 mg/1.5 mL 225 mg SUBCUT .MONTHLY 09/22/24 09/22/24 09/01/24 History subcutaneous auto-injector (Ajovy) magnesium oxide 400 mg (241.3 mg 400 mg PO BID #60 tabs 09/22/24 09/23/24 09/23/24 Rx magnesium) tablet ondansetron 8 mg disintegrating 8 mg PO Q12H PRN nausea and 09/22/24 09/22/24 09/22/24 History tablet vomiting Allergies Allergy/AdvReac Type Severity Reaction Status Date / Time Penicillins Allergy unknown Verified 09/22/24 10:13 topiramate Allergy unknown Verified 09/22/24 10:13 venlafaxine [From Effexor] Allergy itching Verified 09/22/24 10:13 [facility] Anesthesia Medical History Abdominal pain Hypothyroidism Major depressive disorder, recurrent, moderate Vitamin D deficiency, unspecified Chronic constipation Sleeping difficulty Urinary frequency Lung nodule Facet arthritis of lumbar region Lumbar disc disease with radiculopathy Diabetic neuropathy Environmental and seasonal allergies Hyperlipidemia Hypokalemia Hypomagnesemia HSV-2 infection Chronic nausea Chronic migraine Anxiety and depression Diabetes mellitus COPD with asthma GERD (gastroesophageal reflux disease) History of suicidal ideation 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 Chronic back pain greater than 3 months duration Encounter for long-term opiate analgesic use Surgical History Hx of exploratory laparotomy abdominal surgery Hx of unilateral oophorectomy left benign tumor Hx of cholecystectomy Hx of tonsillectomy Family History Mother Stroke maternal grandmother Father Cancer Lung Family/Other Diabetes Uncle Other Breast cancer Colon cancer Family history of thyroid problem Heart disease Ovarian cancer Uterine cancer Social History Smoking and tobacco/nicotine status: former use of tobacco/nicotine Quit status (tobacco/nicotine): has quit using Year quit tobacco: 1996 - PD x 20 Years Second hand smoke exposure: Yes Alcohol intake: unknown Substance/Drug Use: unknown Additional social history: - Tobacco use: Former; quit in 1999 Alcohol use: Denies Drug use: Denies Adopted: No Caregiver/support person: No Lives independently: Yes Household members: children Marital status: Number of children: 3 service: No Current occupational status: unemployed Pets and animals: Yes Pets & animals: cat(s) and dog(s) Do you think of yourself as: Straight/Heterosexual Current gender identity: Female Data Anesthesia Cardiac Studies: No Data to Display
[2024-09-24 10:26] VITALS: BMI 32.2
[2024-09-24] MEDS: sodium chloride 0.9% 1,000 ML 30 ML IV (10:38)
[2024-09-24 10:42] LABS: Glucose Point of Care 105 mg/dL (70-110)
--- NOTE | 2024-09-24 10:59 | W.PM.OPSUD ---
Surgery/Procedure H&P Update DATE OF PROCEDURE: September 24, 2024 DATE H&P PERFORMED: 08/25/24 H&P UPDATE INFORMATION: I have reviewed H&P completed within last 30 days, I have examined patient prior to procedure and No changes to prior documentation PLANNED PROCEDURE: Operation Date: 09/24/24 11:00 Proposed Procedures p EGD 96002, 22328, G0105, K21.0, R11.0, R10.9, R19.7, k92.9(Not Applicable) - DO ayo Hector Colonoscopy(Not Applicable) - Chandler Giraldo DO
[2024-09-24 11:21] VITALS: BP 110/75; PULSE 83; RESP 18; TEMP 36.6; O2SAT 93
[2024-09-24 11:36] VITALS: BP 102/75; PULSE 78; RESP 18; O2SAT 94
[2024-09-24 11:46] VITALS: BP 103/76; PULSE 74; RESP 18; O2SAT 96
--- NOTE | 2024-09-24 11:50 | ANE.PACU2 ---
Inpatient post-anesthesia follow up: Airway intact: Yes Vital signs: Temperature 97.9 F Pulse Rate 74 Respiratory Rate 18 Blood Pressure 103/76 Pulse Oximetry 96 Oxygen Delivery Me thod Room Air Oxygen Flow Rate Fraction of Inspir ed Oxygen Hydration adequate: Yes Nausea and vomiting: No Pain level: 1 Mental status: Baseline
[2024-09-24 12:57] LABS: C.Diff PCR (Lab) NEGATIVE (Negative)
== END 2024-09-24 11:54 | disposition home or self-care (01) ==
PROVIDERS: PCP Nurse Practitioner Family; Visit Provider Surgery
PROC: 0DJ08ZZ Inspection of Upper Intestinal Tract, Via Natural or Artificial Opening Endoscopic (ICD-10-PCS; CPT 43235; principal; 2024-09-24 11:00)
PROC: 0DJD8ZZ Inspection of Lower Intestinal Tract, Via Natural or Artificial Opening Endoscopic (ICD-10-PCS; CPT 45378; 2024-09-24 11:00)
DX: K29.50 Unspecified chronic gastritis without bleeding (principal); R19.7 Diarrhea, unspecified; R11.0 Nausea; J44.9 Chronic obstructive pulmonary disease, unspecified; K21.9 Gastro-esophageal reflux disease without esophagitis; E66.01 Morbid (severe) obesity due to excess calories; Z68.32 Body mass index [BMI] 32.0-32.9, adult; E03.9 Hypothyroidism, unspecified; E11.40 Type 2 diabetes mellitus with diabetic neuropathy, unspecified; E78.5 Hyperlipidemia, unspecified; Z87.891 Personal history of nicotine dependence
CPT/HCPCS: 36416; 43239; 45380; 82274; 82962; 83630; 87045; 87177; 87209; 87427; 87449; 87493; 88305; 88342; J2371; J2704; J7030

== ENCOUNTER → 2024-12-08 13:41 | Outpatient (BNVA) | payer MEDICARE, MEDICAID, SELFPAY | PROVIDERS: PCP Nurse Practitioner Family; Visit Provider Surgery | DX: Z91.014 Allergy to mammalian meats (principal); K29.70 Gastritis, unspecified, without bleeding | CPT/HCPCS: 99214 ==

== ENCOUNTER → 2025-01-27 14:40 | Outpatient (BNVA) | payer MEDICARE, MEDICAID, SELFPAY | PROVIDERS: PCP Nurse Practitioner Family; Visit Provider Nurse Practitioner Family | DX: E11.9 Type 2 diabetes mellitus without complications (principal); E78.2 Mixed hyperlipidemia; E55.9 Vitamin D deficiency, unspecified | CPT/HCPCS: 80053; 80061; 82306; 83036; 84443; 85025; 86003; 86008 ==

== ENCOUNTER 2025-02-08 15:22 | Emergency (ER) | payer OTHER, MEDICAID, SELFPAY ==
--- NOTE | 2025-02-08 15:23 | XRR_ITS ---
PROCEDURE INFORMATION: Exam: XR Chest Exam date and time: 02/08/2025 4:11 PM Age: 59 years old Clinical indication: Chest pressure; PT presents with complaint of sharp left sided chest pain since yesterday. PT denies cardiac HX. PT states nothing makes it better or worse. PT states pain is intermittent. PT denies SOB. PT reports pain upon inspiration; Additional info: Cp TECHNIQUE: Imaging protocol: Radiologic exam of the chest. Views: 1 view. COMPARISON: CR XR chest 1V portable [id number] 07/17/2023 2:38 AM FINDINGS: Lungs: Unremarkable. No consolidation. Pleural spaces: Unremarkable. No pleural effusion. No pneumothorax. Heart/Mediastinum: Unremarkable. No cardiomegaly. Bones/joints: Unremarkable. XR/XR chest 1V portable [id number] IMPRESSION: No acute findings.
--- NOTE | 2025-02-08 15:23 | ECG_ITS ---
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 Measurements Intervals [place] Rate: 76 P: 63 VT: 177 QRS: 24 QRSD: 81 T: 0 QT: 327 QTc: 368 Interpretive Statements SINUS RHYTHM LOW QRS VOLTAGE IN PRECORDIAL LEADS [QRS DEFLECTION < 1.0 mV IN CHEST LEADS] NONSPECIFIC ST & T-WAVE ABNORMALITY INTERPRETATION BASED ON A DEFAULT AGE OF 40 YEARS Compared to ECG 07/17/2023 02:25:16 No significant changes Electronically Signed On 02-08-2025 21:10:29 CDT by Last Lopez M.D. [email or web address]
[2025-02-08 15:25] VITALS: BP 113/82; PULSE 80; RESP 16; TEMP 37.1; O2SAT 100; BMI 31.2
[2025-02-08 16:07] LABS: Basophils # 0.1 10^3/uL (0.0-0.1); Basophils % 0.8 %; Eosinophils # 0.1 10^3/uL (0.0-0.8); Hematocrit 44.9 % (36-47); Lymphocytes # 5.2 10^3/uL (0.8-4.8); Lymphocytes % 55.8 %; Mean Corpuscular HGB Conc 32.1 g/dL (30-55); Mean Corpuscular Hemoglobin 27.1 pg (27-33); Mean Corpuscular Volume 84.6 fl (85-98); Monocytes # 0.6 10^3/uL (0.2-0.9); Monocytes % 5.9 %; Neutrophils # 3.35 10^3/uL (1.8-7.7); Neutrophils % 36.2 %; Nucleated Red Blood Cells % 0 %; Platelet Count 279 10^3/cmm (157-399); Red Blood Count 5.31 10^6/uL (3.85-5.65); Red Cell Distribution Width 14.5 % (12.1-15.1); White Blood Count 9.25 10^3/uL (3.29-11.43)
[2025-02-08 16:19] LABS: INR 0.88 (0.8-1.2)
[2025-02-08 16:29] LABS: Troponin(5th) Baseline < 6 ng/L (0-10)
[2025-02-08 16:30] LABS: Alanine Aminotransferase 17 U/L (0-33); Albumin Level 4.3 g/dL (3.5-5.2); Alkaline Phosphatase 87 U/L (35-105); Anion Gap 16.3 (5-19); Aspartate Amino Transferase 18 U/L (0-32); Blood Urea Nitrogen 10 mg/dL (6-20); Calcium 9.6 mg/dL (8.5-10.5); Carbon Dioxide 24 mmol/L (22-29); Chloride 103 mmol/L (98-107); Creatinine Clr Calc Pharmacy 76.9508; Globulin 2.2 g/dL (1.3-4.6); Glomerular Filtration Rate 85.6 mL/min (90-130); Glucose 106 mg/dL (65-115); Lipase 23 U/L (13-60); Osmolality Calculated 287 mOsm/kg (285-295); Potassium 4.3 mmol/L (3.5-5.1); Sodium 139 mmol/L (136-145); Total Bilirubin 0.4 mg/dL (0.15-1.2); Total Protein 6.5 g/dL (6.6-8.7)
--- NOTE | 2025-02-08 16:33 | W.ED.CHESTPA ---
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 She reports intermittent chest pain since yesterday. Several different spots in her left chest. Worse with movement. Worse with palpation. Worse with deep breathing. She has some cough but this is not much worse than usual. No fevers. She said she did move a washing machine yesterday and it started afterwards and she initially thought she might of pulled something. Related Data Home Medications ?Medication ?Instructions ?Recorded ?Confirmed levothyroxine 25 mcg tablet 25 mcg PO DAILY 02/08/25 02/08/25 Previous Rx's ?Medication ?Instructions ?Recorded hydroxyzine pamoate 25 mg capsule 25 mg PO QID PRN anxiety #60 caps 10/09/24 fremanezumab-vfrm 225 mg/1.5 mL 225 mg (1.5 mL) SUBCUT .MONTHLY 11/04/24 subcutaneous auto-injector ([facility]) #1.5 mL ondansetron 8 mg disintegrating 8 mg PO Q12H PRN nausea and 12/31/24 tablet vomiting #30 tabs cholecalciferol (vitamin D3) 1,250 1,250 mcg PO .weekly #4 caps 01/27/25 mcg (50,000 unit) capsule dapagliflozin propanediol 10 mg 10 mg PO DAILY #30 tabs 01/27/25 tablet (Farxiga) dulaglutide 3 mg/0.5 mL 3 mg (0.5 mL) SUBCUT .weekly #2 mL 01/27/25 subcutaneous pen injector ([facility]) fluticasone 250 mcg-salmeterol 50 1 inh inhalation BID 30 days #60 ea 01/27/25 mcg/dose blistr powdr for inhalation (Advair Diskus) ketoconazole 2 % topical cream 1 applic topical BID #15 grams 01/27/25 magnesium oxide 400 mg (241.3 mg 400 mg PO BID #60 tabs 01/27/25 magnesium) tablet melatonin 10 mg tablet 10 mg PO BEDTIME 30 days #30 tabs 01/27/25 metformin 500 mg tablet 500 mg PO BID 30 days #60 tabs 01/27/25 oxybutynin chloride 5 mg 5 mg PO DAILY 30 days #30 tabs 01/27/25 tablet,extended release 24 hr pantoprazole 40 mg tablet,delayed 40 mg PO DAILY 1 month #30 tabs 01/27/25 release (Protonix) paroxetine HCl 20 mg tablet 20 mg PO DAILY #30 tabs 01/27/25 potassium chloride 20 mEq 20 meq PO BID 30 days #60 tabs 01/27/25 tablet,extended release propranolol 40 mg tablet 40 mg PO BID 30 days #60 tabs 01/27/25 simvastatin 80 mg tablet 80 mg PO DAILY 30 days #30 tabs 01/27/25 sucralfate 1 gram tablet (Carafate) 1 g PO BID #90 tabs 01/27/25 dexamethasone 6 mg tablet 6 mg PO DAILY 5 days #5 tabs 02/08/25 hydrocodone 5 mg-acetaminophen 325 1 tab PO Q6H PRN pain #20 tabs 02/08/25 mg tablet Allergies Allergy/AdvReac Type Severity Reaction Status Date / Time Penicillins Allergy unknown Verified 01/27/25 13:23 topiramate Allergy unknown Verified 01/27/25 13:23 venlafaxine (From Effexor) Allergy itching Verified 01/27/25 13:23 Review of Systems Narrative: Constitutional symptoms: Negative except as documented in HPI. Skin symptoms: Negative except as documented in HPI. Eye symptoms: Negative except as documented in HPI. ENMT symptoms: Negative except as documented in HPI. Respiratory symptoms: Negative except as documented in HPI. Cardiovascular symptoms: Negative except as documented in HPI. Gastrointestinal symptoms: Negative except as documented in HPI. Genitourinary symptoms: Negative except as documented in HPI. Musculoskeletal symptoms: Negative except as documented in HPI. Neurologic symptoms: Negative except as documented in HPI. Psychiatric symptoms: Negative except as documented in HPI. Endocrine symptoms: Negative except as documented in HPI. 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 Chronic back pain greater than 3 months duration Encounter for long-term opiate analgesic use Surgical History Hx of colonoscopy [facility] History of esophagogastroduodenoscopy (EGD) [facility] Hx of exploratory laparotomy abdominal surgery Hx of unilateral oophorectomy left benign tumor Hx of cholecystectomy Hx of tonsillectomy Family History Mother Stroke maternal grandmother Father Cancer Lung Family/Other Diabetes Uncle Other Breast cancer Colon cancer Family history of thyroid problem Heart disease Ovarian cancer Uterine cancer Social History Smoking and tobacco/nicotine status: former use of tobacco/nicotine Quit status (tobacco/nicotine): has quit using Year quit tobacco: 1996 - PD x 20 Years Second hand smoke exposure: Yes Alcohol intake: unknown Substance/Drug Use: unknown Additional social history: - Tobacco use: Former; quit in 1999 Alcohol use: Denies Drug use: Denies Adopted: No Caregiver/support person: No Lives independently: Yes Household members: children Marital status: Number of children: 3 service: No Current occupational status: unemployed Pets and animals: Yes Pets & animals: cat(s) and dog(s) Do you think of yourself as: Straight/Heterosexual Current gender identity: Female Physical Exam Narrative: EXAM NARRATIVE: General: Alert, no acute distress. Skin: Warm, dry. Head: Normocephalic, atraumatic. Neck: Supple, trachea midline. Eye: Extraocular movements are intact. Ears, nose, mouth and throat: mucosa moist. Cardiovascular: Regular, Normal peripheral perfusion. Respiratory: Lungs are clear to auscultation, respirations are non-labored, breath sounds are equal, Symmetrical chest wall expansion. Tenderness of the left anterior lower chest wall to palpation. Gastrointestinal: Soft, Nontender, Non distended Musculoskeletal: Normal ROM, no deformity. Neurological: Alert and oriented, No focal neurological deficit observed. Psychiatric: Cooperative, appropriate mood & affect. Course Vital Signs: Vital signs: Vital Signs Temperature 98.7 F 02/08/25 15:25 Pulse Rate 80 02/08/25 15:25 Respiratory Rate 16 02/08/25 15:25 Blood Pressure 113/82 02/08/25 15:25 Pulse Oximetry 100 02/08/25 15:25 Oxygen Delivery Me thod Room Air 02/08/25 15:25 MDM - Chest Pain Medical Decision Making Differential diagnosis for patient with chest pain includes but is not limited to and based on the above HPI, review of systems and physical exam: Pneumonia. unstable angina. angina. Acute coronary syndrome / CO. Pulmonary embolism. Costochondritis / musculoskeletal. Pleurisy. Pericarditis. Esophageal spasm. Pancreatis. Cholecystitis. Orders placed to evaluate differential diagnosis based on the above differential, HPI and physical exam EKG: Time 1525. Rate 76. Normal sinus rhythm, nonspecific ST changes, no ectopy, normal WI & QRS intervals, This was reviewed and interpreted by myself the ER physician at 1530. Chest x-ray: No acute process. No infiltrate. No pneumothorax. This was reviewed and interpreted by myself the emergency room physician. I also reviewed the radiology report. Lab Review: Laboratory results were reviewed and interpreted by myself the emergency room physician. Lab work is unremarkable. No leukocytosis. No anemia. No renal failure. I reviewed the patient's medical record. Reexamination: Patient continues to have some mild tenderness to palpation left chest wall. No signs of pneumonia or coronary disease at this time. We discussed findings and she is comfortable going home. Assessment and plan: Chest wall pain/muscle strain - Discharged home - Discussed plan with patient. Answered any questions. - Evaluation and treatment of this problem were appropriate in the emergency setting. Lab Data 02/08/25 16:02 02/08/25 16:02 Radiology Impressions Chest X-Ray 02/08/25 15:23 IMPRESSION: No acute findings. Laboratory Results WBC 9.25 10^3/uL (3.29-11.43) 02/08/25 16:02 RBC 5.31 10^6/uL (3.85-5.65) 02/08/25 16:02 Hgb 14.40 g/dL (11.27-16.99) 02/08/25 16:02 Hct 44.9 % (36-47) 02/08/25 16:02 MCV 84.6 fl (85-98) L 02/08/25 16:02 MCH 27.1 pg (27-33) 02/08/25 16:02 MCHC 32.1 g/dL (30-55) 02/08/25 16:02 RDW 14.5 % (12.1-15.1) 02/08/25 16:02 Plt Count 279 10^3/cmm (157-399) 02/08/25 16:02 MPV 9.0 fL (7.4-10.4) 02/08/25 16:02 Neut % (Auto) 36.2 % 02/08/25 16:02 Lymph % (Auto) 55.8 % 02/08/25 16:02 [place] % (Auto) 5.9 % 02/08/25 16:02 Eos % (Auto) 1.0 % 02/08/25 16:02 Baso % (Auto) 0.8 % 02/08/25 16:02 Neut # (Auto) 3.35 10^3/uL (1.8-7.7) 02/08/25 16:02 Lymph # (Auto) 5.2 10^3/uL (0.8-4.8) H 02/08/25 16:02 [place] # (Auto) 0.6 10^3/uL (0.2-0.9) 02/08/25 16:02 Eos # (Auto) 0.1 10^3/uL (0.0-0.8) 02/08/25 16:02 Baso # (Auto) 0.1 10^3/uL (0.0-0.1) 02/08/25 16:02 Nucleated RBC % (auto) 0 % 02/08/25 16:02 Nucleated RBCs # 0.0 /100WBC 02/08/25 16:02 PT 12.60 SECONDS (12.1-14.9) 02/08/25 16:02 INR 0.88 (0.8-1.2) 02/08/25 16:02 Sodium 139 mmol/L (136-145) 02/08/25 16:02 Potassium 4.3 mmol/L (3.5-5.1) 02/08/25 16:02 Chloride 103 mmol/L (98-107) 02/08/25 16:02 Carbon Dioxide 24 mmol/L (22-29) 02/08/25 16:02 Anion Gap 16.3 (5-19) 02/08/25 16:02 BUN 10 mg/dL (6-20) 02/08/25 16:02 Creatinine 0.7 mg/dL (0.5-0.9) 02/08/25 16:02 GFR Calculation 85.6 mL/min (90-130) L 02/08/25 16:02 Glucose 106 mg/dL (65-115) 02/08/25 16:02 Calculated Osmolality 287 mOsm/kg (285-295) 02/08/25 16:02 Calcium 9.6 mg/dL (8.5-10.5) 02/08/25 16:02 Total Bilirubin 0.4 mg/dL (0.15-1.2) 02/08/25 16:02 AST 18 U/L (0-32) 02/08/25 16:02 ALT 17 U/L (0-33) 02/08/25 16:02 Alkaline Phosphatase 87 U/L (35-105) 02/08/25 16:02 Troponin T Baseline < 6 ng/L (0-10) 02/08/25 16:02 Total Protein 6.5 g/dL (6.6-8.7) L 02/08/25 16:02 Albumin 4.3 g/dL (3.5-5.2) 02/08/25 16:02 Globulin 2.2 g/dL (1.3-4.6) 02/08/25 16:02 Lipase 23 U/L (13-60) 02/08/25 16:02 All radiology interpretation(s) finalized by discharge Discharge Plan Discharge Patient Disposition: Home Clinical Impression: Costochondritis Condition: Stable Prescriptions: New hydrocodone-acetaminophen 5-325 mg tablet 1 tab PO Q6H PRN (Reason: pain) Qty: 20 0RF dexamethasone 6 mg tablet 6 mg PO DAILY 5 Days Qty: 5 0RF No Action metformin 500 mg tablet 500 mg PO BID 30 Days Qty: 60 2RF magnesium oxide 400 mg (241.3 mg magnesium) tablet 400 mg PO BID Qty: 60 2RF propranolol 40 mg tablet 40 mg PO BID 30 Days Qty: 60 2RF sucralfate [Carafate] 1 gram tablet 1 g PO BID Qty: 90 0RF simvastatin 80 mg tablet 80 mg PO DAILY 30 Days Qty: 30 2RF oxybutynin chloride 5 mg tablet extended release 24hr 5 mg PO DAILY 30 Days Qty: 30 2RF cholecalciferol (vitamin D3) 1,250 mcg (50,000 unit) capsule 1,250 mcg PO .weekly Qty: 4 2RF Rx Instructions: TAKE ONE CAPSULE BY MOUTH ONCE WEEKLY ON FRIDAYS melatonin 10 mg tablet 10 mg PO BEDTIME 30 Days Qty: 30 2RF pantoprazole [Protonix] 40 mg tablet,delayed release (DR/EC) 40 mg PO DAILY 30 Days Qty: 30 2RF paroxetine HCl 20 mg tablet 20 mg PO DAILY Qty: 30 2RF dapagliflozin propanediol [Farxiga] 10 mg tablet 10 mg PO DAILY Qty: 30 5RF potassium chloride 20 mEq tablet extended release 20 meq PO BID 30 Days Qty: 60 2RF Trulicity 3 mg/0.5 mL pen injector 3 mg SUBCUT .weekly Qty: 2 2RF Rx Instructions: dose increase Advair Diskus 250-50 mcg/dose blister with device 1 inh INHALATION BID 30 Days Qty: 60 2RF ketoconazole 2 % cream 1 applic topical BID Qty: 15 2RF hydroxyzine pamoate 25 mg capsule 25 mg PO QID PRN (Reason: anxiety) Qty: 60 2RF Rx Instructions: Take 1 capsule up to 4 times daily, if needed for anxiety symptoms Ajovy Autoinjector 225 mg/1.5 mL auto-injector 225 mg SUBCUT .MONTHLY Qty: 1.5 3RF ondansetron 8 mg tablet,disintegrating 8 mg PO Q12H PRN (Reason: nausea and vomiting) Qty: 30 2RF levothyroxine 25 mcg tablet 25 mcg PO DAILY Discharge Orders: Discharge ED (Routine); Ordered 02/08/25 Ordered By: Amberly Wray Referrals: Jaleesa Diop FNP-C [Primary Care Provider] - Discharge Diet: Usual diet Discharge Activity: Increase activity as tolerated Patient Instructions: Costochondritis (ED), Opioid Safety, Pain Management Activity Restrictions/Additional Instructions: Thank you for choosing [facility] for your healthcare needs today. Please realize this is an emergency room and that we are providing you with a medical screening exam and this may not be complete and all inclusive of all the testing and or work up that you may need to determine your ailment or severity of your illness. You have been screened and evaluated and felt safe for discharge. Health conditions do change or evolve sometimes and as such it is important that you follow up with your Primary Doctor to be re checked, 3-5 days is a general good time frame for follow up. You are always welcome to return to the ED for re assessment if your symptoms are worsening or you have new concerns Print Language: Mohawk Coding Level of Care Code ED Grinder Set Up Operator Thread Tool for Robbi Lopez
--- NOTE | 2025-02-08 17:23 | ECG_ITS ---
[facility] 2025-[facility]08 Pat Name: Madison Lemus Department: Room: Gender: Female Storage Battery Charger: : 1965 Requested By: Debi Huertas Order Number: [id number] Phuc MD: Last Lopez M.D. Measurements Intervals [place] Rate: 67 P: 24 DE: 194 QRS: -6 QRSD: 101 T: 0 QT: 385 QTc: 408 Interpretive Statements SINUS RHYTHM LOW QRS VOLTAGE IN PRECORDIAL LEADS [QRS DEFLECTION < 1.0 mV IN CHEST LEADS] POSSIBLE ANTERIOR MYOCARDIAL INFARCTION , PROBABLY OLD [30 ms Q WAVE IN V3/V4, OR R < 0.2 mV IN V4] Incomplete right bundle branch block pattern Compared to ECG 02/08/2025 15:25:20 Myocardial infarct finding now present T-wave abnormality no longer present Electronically Signed On 02-08-2025 21:18:51 CDT by Last Lopez M.D. [email or web address]
[2025-02-08 17:37] VITALS: PULSE 73; O2SAT 94
== END 2025-02-08 17:39 | disposition home or self-care (01) ==
PROVIDERS: Emergency Medicine; Emergency Provider Emergency Medicine; PCP Nurse Practitioner Family
DX: M94.0 Chondrocostal junction syndrome [Tietze] (principal); Z79.84 Long term (current) use of oral hypoglycemic drugs; Z79.85 Long-term (current) use of injectable non-insulin antidiabetic drugs; Z87.891 Personal history of nicotine dependence; J44.9 Chronic obstructive pulmonary disease, unspecified; E11.40 Type 2 diabetes mellitus with diabetic neuropathy, unspecified; E78.5 Hyperlipidemia, unspecified
CPT/HCPCS: 36415; 71045; 80053; 83690; 84484; 85025; 85610; 93005; 99285

== ENCOUNTER → 2025-03-02 13:47 | Outpatient (BNVA) | payer OTHER, MEDICAID, SELFPAY | PROVIDERS: PCP Nurse Practitioner Family; Visit Provider Nurse Practitioner Family | DX: R71.8 Other abnormality of red blood cells (principal) | CPT/HCPCS: 82728; 83540 ==

== ENCOUNTER → 2025-05-05 13:08 | Outpatient (BNVA) | payer MEDICARE, SELFPAY | PROVIDERS: PCP Nurse Practitioner Family; Visit Provider Psychiatry & Neurology Neurology | DX: G43.011 Migraine without aura, intractable, with status migrainosus (principal) | CPT/HCPCS: 99212 ==

== ENCOUNTER → 2025-06-16 13:35 | Outpatient (BNVA) | payer MEDICARE, SELFPAY | PROVIDERS: PCP Nurse Practitioner Family; Visit Provider Podiatrist Foot & Ankle Surgery | DX: E11.8 Type 2 diabetes mellitus with unspecified complications (principal); G62.9 Polyneuropathy, unspecified; L84 Corns and callosities; E11.42 Type 2 diabetes mellitus with diabetic polyneuropathy; Z79.84 Long term (current) use of oral hypoglycemic drugs | CPT/HCPCS: 99213 ==

== ENCOUNTER → 2025-08-06 12:06 | Outpatient (BNVA) | payer MEDICARE, MEDICAID, SELFPAY | PROVIDERS: PCP Nurse Practitioner Family; Visit Provider Nurse Practitioner Family | DX: E11.9 Type 2 diabetes mellitus without complications (principal) | CPT/HCPCS: 80053; 80061; 83036; 84443; 85025 ==

== ENCOUNTER → 2025-09-08 14:33 | Outpatient (BNVA) | payer MEDICARE, MEDICAID, SELFPAY | PROVIDERS: PCP Nurse Practitioner Family; Visit Provider Podiatrist Foot & Ankle Surgery | DX: E11.42 Type 2 diabetes mellitus with diabetic polyneuropathy (principal); L60.3 Nail dystrophy; E11.8 Type 2 diabetes mellitus with unspecified complications; G62.9 Polyneuropathy, unspecified; L84 Corns and callosities; Z79.84 Long term (current) use of oral hypoglycemic drugs | CPT/HCPCS: 11721 ==

== ENCOUNTER 2025-10-19 14:15 | Emergency (ER) | payer MEDICARE, MEDICAID, SELFPAY ==
[2025-10-19] VITALS (8 sets, daily range): BP systolic 103–127; BP diastolic 62–96; PULSE 71–84; RESP 18; TEMP 36.9; O2SAT 94–98
--- OUTSIDE RECORDS SUMMARY | 2025-10-19 14:22 | XMS_ITS | Clinical Summary ---
Author Organization [facility] Address [address] [place] [address] Phone Care Team Providers Care Curing Supervisor Name Role Phone Pro Obrien Primary Care Provider [phone] Allergies Active Allergy Reactions Criticality Noted Date Comments Penicillins Nausea and Vomiting Low 12/05/2013 Medications metFORMIN (GLUMETZA) 500 mg Extended Release 24 hour tabletIndicatio ns:Type 2 diabetes mellitus with diabetic polyneuropathy, without long-term current use of insulin ([facility]) Take 1 Tablet (500 mg) by mouth daily with breakfast. 30 Tablet 5 6 Active montelukast (SINGULAIR) 10 mg tablet Take 1 Tablet (10 mg) by mouth daily This has not been filled at our clinic. 30 Tablet 5 6 Active gabapentin (NEURONTIN) 600 mg tablet Take 600 mg by mouth 2 times daily Pt states is taking 1/2 in am and 2 tabs at night . Active sulfamethoxazol e-trimethoprim (BACTRIM DS) 800-160 mg tablet Take 1 Tablet by mouth 2 times daily. 14 Tablet None 7 Active neomycin-polymy jin-dexamethaso ne (MAXITROL) 3.5mg/mL-10,000 unit/mL-0.1 % suspension 2 Drops by See Admin Instructions route every 6 hours 2-3 Drops L ear every 6 Hrs. 5 mL 7 Active simvastatin (ZOCOR) 20 mg tablet TAKE TWO TABLETS BY MOUTH LATE IN THE DAY 60 Tablet 3 7 Active Active Problems Problem Noted Date Diagnosed Date Migraine without aura and wi thout status migrainosus, not intractable 12/04/2016 Generalized weakness 09/18/2016 Hypokalemia 08/23/2016 Iron deficiency anemia 06/05/2016 Postmenopausal atrophic vaginitis 04/05/2016 Ingrown toenail without infection-bilateral 05/2016 Depression GERD (gastroesophageal reflux disease) Diabetes mellitus Hyperlipidemia Asthma Anxiety HTN (hypertension) Fatty liver Family History Medical History Relation Name Comments Lung Cancer Father Unknown Maternal Grandfather Stroke Maternal Grandmother Heart Disease Mother Hypertension Mother Respiratory Disease Mother Stroke Mother Unknown Paternal Grandfather Other Paternal Grandmother alzheim ers Unknown Paternal Grandmother Breast Cancer Neg Hx Colon Cancer Neg Hx Relation Name Status Comments Father Maternal Grandfather Maternal Grandmother Mother Paternal Grandfather Paternal Grandmother Social History Tobacco Use Types Packs/Day Years Used Date Smoking Tobacco: Former Cigarettes 0 Q uit: 10/29/1995 Smokeless Tobacco: Never Alcohol Use Standard Drinks/Week Comments No 0 (1 standard drink = 0.6 oz pur e alcohol) Comments No Sex and Gender Information Value Date Recorded Sex Assigned at Not on file Legal Sex Female 3:32 AM HEALTHCARE PROJECT MANAGER Gender Identity Not on file Sexual Orientation Not on file Last Filed Vital Signs Vital Sign Reading Time Taken Comments Blood Pressure 153/92 05/01/2017 11:43 AM CDT Pulse 96 03/19/2017 1:53 PM CDT Temperature 36.4 C (97.6 F) 05/01/2017 11:43 AM CDT Respiratory Rate 18 05/01/2017 11:43 AM CDT Oxygen Saturation 98% 05/01/2017 11:43 AM CDT Inhaled Oxygen Concentration - - Weight 84.6 kg (186 lb 9.6 oz) 05/01/2017 11:10 AM CDT Height 149.9 cm (4' 11 ) 05/01/2017 11:10 AM CDT Body Mass Index 37.69 05/01/2017 11:10 AM CDT Plan of Treatment Health Maintenance Due Date Last Done Comments DIABETES ANNUAL FOOT EXAM 1983 DIABETES ANNUAL RETINAL EXAM 1983 DTAP/TDAP/TD VACCINES (1 - Tdap) 1984 HPV/Cotest (21-29) 1986 CERVICAL CANCER SCREENING 1995 HPV/Cotest (30-65) 1995 PAP SMEAR 1995 BREAST CANCER SCREENING 2005 FIT-DNA Q 3 years 2010 FIT/FOBT Q 1 year 2010 Flex Sig/CT Colonography Q 5 years 2010 RSV VACCINE (60+ or ) (1 - Risk 50-74 years 1-dose series) 2015 ZOSTER VACCINE (1 of 2) 2015 DIABETES HBA1C Q 6 MONTHS 04/05/2017 10/05/2016, 11/2015 DIABETES MICROALBUMIN ANNUAL SCREEN 06/30/201706/30 LDL CHOLESTEROL ANNUAL 06/30/2017 06/30/2016 INFLUENZA VACCINE (#1) 2025 HEPATITIS B VACCINES (1 of 3 - Risk 3-dose series) 2025 COLORECTAL SCREENING 06/02/2026 06/02/2016 Colorectal Cancer Screening 06/02/2026 Procedures Procedure Name Priority Date/Time Associated Diagnosis Comments HEMOGLOBIN A1C Routine 10/05/2016 3:42 PM HEALTHCARE PROJECT MANAGER Type 2 diabetes mellitus with diabetic polyneuropathy, without long-term current use of insulin (CMS/HCC) MICROALBUMIN/CREATI NINE RATIO, RANDOM UR Routine 06/30/2016 12:08 PM CDT Type 2 diabetes mellitus with diabetic polyneuropathy (CMS/HCC) LIPID PANEL Routine 06/30/2016 12:08 PM CDT Type 2 diabetes mellitus with diabetic polyneuropathy ([facility]/HCC) Mixed hyperlipidemia ENDOSCOPY, COLON, SCREENING Routine 06/02/2016 from Last 3 Months or Most Recently Relevant to Health Maintenance Results * (ABNORMAL) HEMOGLOBIN A1C (10/05/2016 3:42 PM HEALTHCARE PROJECT MANAGER) HEMOGLOBIN A1C 6.2(H) 4.0 - 6.0 % 10/06/2016 10:05 PM HEALTHCARE PROJECT MANAGER [facility] EST. AVG GLUCOSE, A1C 131 mg/dL 10/06/2016 10:05 PM [facility] Blood Collection / Unknown 10/05/2016 3:42 PM HEALTHCARE PROJECT MANAGER 10/06/2016 8:59 PM HEALTHCARE PROJECT MANAGER Narrative [facility] - 10/06/2016 10:05 PM HEALTHCARE PROJECT MANAGER Falsely low A1C measurements can occur when: 1. Anemia and/or hemolytic anemia is present. 2. Hemoglobin variants present. 3. Renal failure. 4. Transfusion of blood product in the last 120 days. We recommend ordering a fructosamine test([id number]) to more accurately assess glycemic status if any of the above conditions are present. [facility] ORDERAB [facility]ES Final Result Performing Organization Address City/[facility]/ZIP Co de Phone Number [facility] CLIA# [id number] [place] [address] * MICROALBUMIN/CREATININE RATIO, RANDOM UR (06/30/2016 12:08 PM CDT) MICROALBUMIN, URINE <1.2 mg/dL 06/30/2016 9:15 PM CDT [facility] CREATININE, URINE 152.9 29.0 - 226.0 mg/dL 06/30/2016 9:15 PM CDT [facility] Comment: Reference Range varies with fluid intake and diet. MICROALBUMIN/C REAT RATIO, UR <7.8 <25.0 mg/g Creatinine 06/30/2016 9:15 PM T [facility] Urine URINE SPECIMEN OBTAINED BY CLEAN CATCH PROCEDURE / Unknown Collection / Unknown 06/30/2016 12:08 PM CDT 06/30/2016 8:28 PM CDT Narrative [facility] - 06/30/2016 9:15 PM CDT Condition Microalbumin/Creat ratio Normal Males <17 Normal Females <25 Microalbuminuria Males 17-299 Microalbuminuria Females 25-299 Overt proteinuria >=300 Viviane Nair GRADUATE STUDENT INSTRUCTOR URINE ORDERABLES Final Result Performing Organization Address [facility]/ZIP Co de Phone Number [facility] CLIA# [id number] [address] [place] [address] * (ABNORMAL) LIPID PANEL (06/30/2016 12:08 PM CDT) CHOLESTEROL 224(H) <200 mg/dL 06/30/2016 8:59 PM CDT [facility] TRIGLYCERIDE 228(H) <150 mg/dL 06/30/2016 8:59 PM CDT [facility] HDL 59 40 - 59 mg/dL 06/30/2016 8:59 PM CDT [facility] LDL CALCULATED 119(H) <100 mg/dL 06/30/2016 8:59 PM CDT [facility] NON-HDL CHOLESTEROL 165(H) <130 mg/dL 06/30/2016 8:59 PM CDT [facility] Blood Collection / Unknown 06/30/2016 12:08 PM CDT 06/30/2016 8:29 PM CDT Narrative [facility] - 06/30/2016 8:59 PM CDT TOTAL CHOLESTEROL mg/dL Desirable <200 Borderline high 200-239 High >=240 TRIGLYCERIDES mg/dL Normal <150 Borderline high 150-199 High 200-499 Very high >=500 HDL CHOLESTEROL mg/dL Low <40 Normal 40-59 Desirable >=60 NON HDL CHOLESTEROL mg/dL Optimal <130 Near Optimal 130-159 Borderline High 160-189 Very High >=190 Calculated LDL mg/dL Optimal <100 Near Optimal 100-129 Borderline High 130-159 High 160-189 Very High >=190 ATPIII Guidelines Reference Ranges for Lipid Panels (NCEP/AMA) us Viviane Nair GRADUATE STUDENT INSTRUCTOR CHEMISTRY ORDERAB LES Final Result [facility] CLIA# [id number] [facility] [place] [address] * ENDOSCOPY, COLON, SCREENING (06/02/2016) us Abstract Spg Provider GI PROCEDURE ORDERABLES Fi nal Result from Last 3 Months or Most Recently Relevant to Health Maintenance Insurance MEDICAID [place] Care Teams Curing Supervisor Relationship Specialty Start Date End Date Pro Obrien DO [address] [place] [address] PCP - General Specialist 01/23/18
--- OUTSIDE RECORDS SUMMARY | 2025-10-19 14:22 | XMS_ITS | Patient Health Record ---
Author Organization [facility] Address [address] [place] [address] Care Team Providers Care Dye Lab Technician Name Role Phone Jaleesa Loera (Kayly) Primary Care Provider Avinash Luna Unavailable [phone] Allergies Allergen (clinical drug ingredient) Drug/Non Drug Allergy documented on EMR Reaction Allergy Type Onset Date Status Penicillin nausea and vomiting Drug Allergy Active Reason For Referral No Information Medications Medication SIG (Take, Route, Frequency, Duration) Notes Start Date End Date Status Potassium Chloride ER 20 MEQ Tablet Extended Release 1 tablet with food Orally Twice a day; Duration: 30 Active Promethazine-DM 6.25-15 MG/5ML Syrup 5 ml as needed Orally every 6 hrs; Duration: 6 Active Albuterol Sulfate (2.5 MG/3ML) 0.083% Nebulization Solution NEBULIZE 1 VIAL FOUR TIMES DAILY NEEDED FOR WHEEZING Inhalation; Duration: 15 Active Terconazole 0.8 % Cream INSERT ONE APPLI CATORFUL VAGINALLY NIGHTLY Vaginal; Duration: 3 Active Vitamin E 400 UNIT Capsule 1 capsule Ora lly Once a day Active oxyCODONE HCl 5 MG Tablet 1 tablet as ne eded Orally every 6 hrs Active Simvastatin 40 MG Tablet 1 tablet in the evening Orally Once a day; Duration: 30 Active oxyBUTYnin Chloride ER 5 MG Tablet Extended Release 24 Hour 1 tablet Orally Once a day; Duration: 30 Active ProAir HFA 108 (90 Base) MCG/ACT Aerosol Solution 1 puff as needed Inhalation every 4 hrs; Duration: 25 Active Magnesium Oxide 400 (241.3 Mg) MG Tablet 1 tablet as needed Orally Once a day; Duration: 30 Active Pantoprazole Sodium 40 MG Tablet Delayed Release 1 tablet Orally twice a day; Duration: 30 Active Cyclobenzaprine HCl 10 MG Tablet 1 tablet Orally three times a day; Duration: 10 Active PARoxetine HCl 40 MG Tablet 1 tablet in the morning Orally Once a day; Duration: 30 Active Ondansetron HCl 8 MG Tablet 1 tablet Ora lly as needed; Duration: 30 Active Propranolol HCl 20 MG Tablet 1 tablet Orally Twice a day; Duration: 30 Active Sucralfate 1 GM Tablet 1 tablet Orally t hree times a day; Duration: 30 Active Montelukast Sodium 10 MG Tablet 1 tablet Orally Once a day; Duration: 30 Active D3-50 1.25 MG (02782 UT) Capsule 1 capsule Orally weekly; Duration: 30 Active Farxiga 5 MG Tablet 1 tablet Orally Once a day; Duration: 30 Active Advair Diskus 250-50 MCG/DOSE Aerosol Powder Breath Activated 1 puff Inhalation Twice a day; Duration: 30 Active DOK 100 MG Capsule 1 capsule as needed Orally Once a day; Duration: 30 Active Social History Tobacco Use: Social History Observation Description Date Details (start date - stop date) Former Smoker NA - NA Social History Depression Screening Social Info Question Answer Notes PHQ-9 Little interest or pleasure in doing thin gs Not at all Feeling down, depressed, or hopeless Not at all Trouble falling or staying asleep, or sleeping t oo much Several days Feeling tired or having little energy Several da ys Poor appetite or overeating Several days Feeling bad about yourself, or that you are a failure, or have let yourself or your family down Several days Trouble concentrating on thi ngs, such as reading the newspaper or watching television Not at all Moving or speaking so slowly that other people could have noticed. Or the opposite ? being so fidgety or restless that you have been moving around a lot more than usual Not at all Thoughts that you would be b robin off , or of hurting yourself in some way Not at all Total Score 4 Interpretation Minimal Depression Drugs/Alcohol: Social Info Question Answer Notes Alcohol Screen (Audit-C) Did you have a drink containing alcohol in the past year? No Points 0 Interpretation Negative Tobacco Use: Social Info Question Answer Notes xTobacco Use/Smoking Are you a former smoker How long has it been since you last smoked? > 10 years Additional Details Category Social Info Options Details Miscellaneous: Marital status: Occupation: Unemployed Problems Problem Type SNOMED Code ICD Code Onset Dates Problem Status W/U Status Risk Notes Problem Type II diabetes mellitus without complication (150209035) Type 2 diabetes mellitus without complication, without long-term current use of insulin (E11.9) Active confirmed Problem COPD - Chronic obstructive pulmonary disease (32233723) Chronic obstructive pulmonary disease, unspecified COPD type (J44.9) Active confirmed Problem Fatty liver (727277854) NAFLD (nonalcoholic fatty liver disease) (K76.0) Active confirmed Problem Hyperlipidaemia (29251748) Hyperlipidemia, unspecified hyperlipidemia type (E78.5) Active confirmed Problem Gastroesophageal reflux disease (512948914) Gastroesophageal reflux disease, esophagitis presence not specified (K21.9) Active confirmed Problem Chronic depression (272839353) Chronic depression (F32.9) Active confirmed Problem Morbid obesity (884671832) Morbid obesity (E66.01) Active confirmed Problem Degeneration of intervertebral disc (98260641) Multilevel degenerative disc disease (M53.9) Active confirmed Problem Chronic nonalcoholic liver disease (34465371) Nonalcoholic fatty liver (571.8) 016 Problem resolved confirmed [facility] [place] [place] 911- Plan Of Treatment No Information Insurance Providers Payer Name Payer Address Payer Phone Subscriber Number Group Number Insured Name Patient Relationship to Insured Coverage Start Date Coverage End Date [employer] [place] Medicaid Replacement [address] [address] [place] [phone] [id number] Madison Lemus Self - patient is the insured [facility] [address] [address] [place] [address] [phone] [id number] Madison Lemus Self - patient is the insured Medical (General) History Medical History History ICD Code chicken pox as a child migraine headaches diabetes back trouble hypertension asthma skin rash gerd Surgical History Surgery Date(Month/Year) left ovarian tumor tonsillectomy cholecystectomy Hospitalization History Reason Date(Month/Year) hypokalemia
--- OUTSIDE RECORDS SUMMARY | 2025-10-19 14:22 | XMS_ITS | Encounter Summary ---
Author Organization [facility] Address [address] [place] [address] Care Team Providers Care Enterprise Resource Planning Consultant Name Role Phone Pro Obrien DO Primary Care Provider [phone] Encounter Details Date Type Department Care Team (Late st Contact Info) Description 08/19/2001 Outpatient Historical [facility] Neurology [address] [facility], [address] [place] [id number] Huang Kiser MD [address] [place] [id number] Lumbago (Primary Dx) Social History Tobacco Use Types Packs/Day Years Used Date Smoking Tobacco: Never Assessed Comments Unknown Sex and Gender Information Value Date Recorded Sex Assigned at Not on file Legal Sex Female 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
--- OUTSIDE RECORDS SUMMARY | 2025-10-19 14:22 | XMS_ITS | Encounter Summary ---
Author Organization [facility] Address [address] [place] [address] Care Team Providers Care Founder And Chief Executive Officer Name Role Phone Pro Obrien DO Primary Care Provider [phone] Encounter Details Date Type Department Care Team (Late st Contact Info) Description 08/24/2000 Outpatient Historical [facility] [address] [facility] [address] [facility], [address] [place] [phone] Huang Kiser MD [address] [place] [id number] Lumbago (Primary Dx) Social History Tobacco Use Types Packs/Day Years Used Date Smoking Tobacco: Never Assessed Comments Unknown Sex and Gender Information Value Date Recorded Sex Assigned at Not on file Legal Sex 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
--- OUTSIDE RECORDS SUMMARY | 2025-10-19 14:22 | XMS_ITS | Clinical Summary ---
Author Organization [facility] Address [address] [facility] Attn: Epic Prelude ADT SHEN PATEL [address] Care Team Providers Care Powerplant Operator Name Role Phone CamillePro Primary Care Provider [phone] Allergies Active Allergy Reactions Criticality Noted Date Comments Alpha-Gal (Ftswiiunp-Xjxue-1,3-Galactos e) Diarrhea,Abdominal Pain Low 03/05/2025 Penicillins Nausea and Vomiting Low 12/05/2013 Topiramate Unknown 03/05/2025 Venlafaxine Unknown 03/05/2025 Medications simvastatin (ZOCOR) 20 mg tablet TAKE TWO TABLETS BY MOUTH LATE IN THE DAY 60 Tablet 3 05/04/20 17 Active Additional Information Patient taking differently: 80 mg Oral DAILY, Reported on 03/05/2025 metFORMIN (GLUMETZA) 500 mg Extended Release 24 hour tabletIndication s:Type 2 diabetes mellitus with diabetic polyneuropathy, without long-term current use of insulin ([facility]) Take 1 Tablet (500 mg) by mouth daily with breakfast. 30 Tablet 5 10/05/20 16 Active cholecalciferol 1,250 mcg (50,000 unit) Capsule Take 50,000 Units by mouth every 7 days. Active dapagliflozin propanediol (FARXIGA) 5 mg Tablet Take 10 mg by mouth daily. Active dulaglutide (Trulicity) 3 mg/0.5 mL injection Inject 3 mg by subcutaneous injection every 7 days. Active EPINEPHrine (EPIPEN) 0.3 mg/0.3 mL Auto-Injector Inject 0.3 mg by intramuscular injection 1 time daily as needed for Anaphylaxis. Active fluticasone propion-salmeter oL (ADVAIR DISKUS,WIXELA INHUB) 250-50 mcg/dose disk inhaler Take 1 Puff by inhalation 2 times daily. Active fremanezumab-vfr m (Ajovy Syringe) 225 mg/1.5 mL Syringe Inject 225 mg by subcutaneous injection every 30 days. Active HYDROcodone-acet aminophen (NORCO) 5-325 mg tablet Take 1 Tablet by mouth every 6 hours as needed for Pain, Moderate. Active hydrOXYzine HCL (ATARAX) 25 mg tablet Take 25 mg by mouth every 6 hours as needed for Anxiety. Active ketoconazole (NIZORAL) 2 % Cream Apply to affected area daily. Active levothyroxine 25 mcg tablet Take 25 mcg by mouth daily in the morning. Active MAGNESIUM OXIDE ORAL Take 400 mg by mouth 2 times daily. Active melatonin 5 mg Tablet Take 10 mg by mouth nightly as needed for Insomnia. Active ondansetron (ZOFRAN) 4 mg Tablet Take 4 mg by mouth every 12 hours as needed for Nausea/Emesis. Active oxyBUTYnin (DITROPAN XL) 5 mg Extended Release 24 hour tablet Take 5 mg by mouth daily. Active pantoprazole (PROTONIX) 40 mg Tablet, Delayed Release (E.C.) Take 40 mg by mouth daily. Active PARoxetine HCl (PAXIL) 20 mg tablet Take 20 mg by mouth daily. Active potassium BICARBONATE-citr ic acid (EFFER-K) 20 mEq Tablet, Effervescent Take 20 mEq by mouth 2 times daily. Active predniSONE (DELTASONE) 10 mg tablet Take 10 mg by mouth daily. Active propranoloL (INDERAL) 40 mg tablet Take 40 mg by mouth 2 times daily. Active sucralfate (CARAFATE) 1 gram tablet Take 1 Gram by mouth 2 times daily. Active Active Problems Problem Noted Date Diagnosed Date Musculoskeletal chest pain 03/05/2025 Migraine without aura and wi thout status migrainosus, not intractable 12/04/2016 Generalized weakness 09/18/2016 Hypokalemia 08/23/2016 Iron deficiency anemia 06/05/2016 Postmenopausal atrophic vaginitis 04/05/2016 Ingrown toenail without infection-bilateral 05/2016 Diabetes mellitus Depression Hyperlipidemia Anxiety GERD (gastroesophageal reflux disease) Asthma HTN (hypertension) Fatty liver Encounters Date Type Department Care Team Description 09/29/2025 External Device Data [facility] ABSTRACTION Provider, Abstract 09/22/2025 External Device Data [facility] ABSTRACTION Provider, Abstract 08/19/2025 External Device Data [facility] ABSTRACTION Provider, Abstract 08/18/2025 External Device Data [facility] ABSTRACTION Provider, Abstract 08/11/2025 External Device Data [facility] ABSTRACTION Provider, Abstract 08/03/2025 Orders Only [facility] [place] [address] [facility] [facility] [address] [place] [address] Jaleesa Diop NP Abdominal pain, unspecified abdominal location (Primary Dx); Other chronic back pain; Nausea from Last 3 Months Family History Medical History Relation Name Comments [...] drink = 0.6 oz pur e alcohol) Feeling Safe Answer Date Recorded Are you in a relationship wi th someone who hurts you emotionally and/or physically? No 03/05/2025 Comments Unknown Sex and Gender Information Value Date Recorded Sex Assigned at Not on file Legal Sex Female 4:30 PM DISASSEMBLER PRODUCT Gender Identity Not on file Sexual Orientation Not on file Last Filed Vital Signs Vital Sign Reading Time Taken Comments Blood Pressure 124/70 03/05/2025 5:15 PM CDT Pulse 75 03/05/2025 5:15 PM CDT Temperature 36.2 C (97.1 F) 03/05/2025 2:41 PM CDT Respiratory Rate 16 03/05/2025 5:15 PM CDT Oxygen Saturation 97% 03/05/2025 5:15 PM CDT Inhaled Oxygen Concentration - - Weight 71.1 kg (156 lb 12.8 oz) 03/05/2025 2:41 PM CDT Height 149.9 cm (4' 11 ) 03/05/2025 2:41 PM CDT Body Mass Index 31.67 03/05/2025 2:41 PM CDT Plan of Treatment Health Maintenance Due [...] 2) 2015 DIABETES HBA1C Q 6 MONTHS 04/05/20172015, 10/05/2016, 06/30/2016 DIABETES MICROALBUMIN ANNUAL SCREEN 06/30/201706/30 LDL CHOLESTEROL ANNUAL 06/30/2017 06/30/2016 INFLUENZA VACCINE (#1) 2025 HEPATITIS B VACCINES (1 of 3 - Risk 3-dose series) 2025 COLORECTAL SCREENING 06/02/2026 06/02/2016, 06/02/20 16 Colorectal Cancer Screening 06/02/2026 Procedures Procedure Name Priority Date/Time Associated Diagnosis Comments HEMOGLOBIN A1C Routine 10/05/2016 3:42 PM DISASSEMBLER PRODUCT MICROALBUMIN/CREATIN INE RATIO, RANDOM UR Routine 06/30/2016 12:08 PM CDT LIPID PANEL Routine 06/30/2016 12:08 PM CDT ENDOSCOPY, COLON, SCREENING 06/02/2016 12:00 AM CDT from Last 3 Months or Most Recently Relevant to Health Maintenance Results * (ABNORMAL) HEMOGLOBIN A1C (10/05/2016 3:42 PM DISASSEMBLER PRODUCT) HEMOGLOBIN A1C 6.2(H) 4.0 - 6.0 % 10/06/2016 10:[address] [facility] EST. AVG GLUCOSE, A1C 131 mg/dL 10/06/2016 10:[address] [facility] Blood Collection / Unknown 10/05/2016 3:42 PM DISASSEMBLER PRODUCT 10/06/2016 8:59 PM DISASSEMBLER PRODUCT Abby [facility] - 10/06/2016 10:05 PM DISASSEMBLER PRODUCT Falsely low A1C measurements can occur when: 1. Anemia and/or hemolytic anemia is present. 2. Hemoglobin variants present. 3. Renal failure. 4. Transfusion of blood product in the last 120 days. We recommend ordering a fructosamine test([id number]) to more accurately assess glycemic status if any of the above conditions are present. Viviane Nair APRN CHEMISTRY ORDERAB LES Final Result [facility] CLIA# [id number] [address] [place] [address] * MICROALBUMIN/CREATININE RATIO, RANDOM UR (06/30/2016 12:08 PM CDT) MICROALBUMIN, URINE <1.2 mg/dL 06/30/2016 9:[address] [facility] CREATININE, URINE 152.9 29.0 - 226.0 mg/dL 06/30/2016 9:[address] [facility] Comment: Reference Range varies with fluid intake and diet. MICROALBUMIN/C REAT RATIO, UR <7.8 <25.0 mg/g Creatinine 06/30/2016 9:[address] [facility] Urine URINE SPECIMEN OBTAINED BY CLEAN CATCH PROCEDURE / Unknown Collection / Unknown 06/30/2016 12:08 PM CDT 06/30/2016 8:[address] [facility] - 06/30/2016 9:15 PM CDT Condition Microalbumin/Creat ratio Normal Males <17 Normal Females <25 Microalbuminuria Males 17-299 Microalbuminuria Females 25-299 Overt proteinuria >=300 us Viviane Nair GROUP INSURANCE SPECIAL AGENT URINE ORDERABLES Final Result [facility] CLIA# [id number] [place] [address] * (ABNORMAL) LIPID PANEL (06/30/2016 12:08 PM CDT) CHOLESTEROL 224(H) <200 mg/dL 06/30/2016 8:[address] [facility] TRIGLYCERIDE 228(H) <150 mg/dL 06/30/2016 8:[address] [facility] HDL 59 40 - 59 mg/dL 06/30/2016 8:[address] [facility] LDL CALCULATED 119(H) <100 mg/dL 06/30/2016 8:[address] [facility] NON-HDL CHOLESTEROL 165(H) <130 mg/dL 06/30/2016 8:[address] [facility] Blood Collection / Unknown 06/30/2016 12:08 PM CDT 06/30/2016 8:[address] [facility] - 06/30/2016 8:59 PM CDT TOTAL CHOLESTEROL mg/dL Desirable<200 Borderline [id number] High>=240 TRIGLYCERIDES mg/dL Normal<150 Borderline [id number] [id number] Very high>=500 HDL CHOLESTEROL mg/dL Low<40 Ycyvys03-09 Desirable>=60 NON HDL CHOLESTEROL mg/dL Optimal<130 Near [id number] Borderline [id number] Very High>=190 Calculated LDL mg/dL Optimal<100 Near [id number] Borderline [id number] [id number] Very High>=190 ATPIII Guidelines Reference Ranges for Lipid Panels (NCEP/AMA) us Viviane Nair GROUP INSURANCE SPECIAL AGENT CHEMISTRY ORDERAB LES Final Result [facility] CLIA# [id number] [place] [address] * ENDOSCOPY, COLON, SCREENING (06/02/2016 12:00 AM CDT) Sg Scanning GI PROCEDURE ORDERABLES Final Re sult from Last 3 Months or Most Recently Relevant to Health Maintenance Insurance MEDICAID [place] DUAL COMPLETE O [facility] [id number] Care Teams Powerplant Operator Relationship Specialty Start Date End Date Pro Obrien DO [address] [place] [address] PCP - General Specialist 01/23/18
[2025-10-19 14:42] LABS: Hematocrit 46.4 % (36-47); Hemoglobin 14.90 g/dL (11.27-16.99); Mean Corpuscular HGB Conc 32.1 g/dL (30-55); Mean Corpuscular Hemoglobin 27.2 pg (27-33); Mean Corpuscular Volume 84.8 fl (85-98); Nucleated Red Blood Cells % 0 %; Platelet Count 305 10^3/cmm (157-399); Red Blood Count 5.47 10^6/uL (3.85-5.65); White Blood Count 8.01 10^3/uL (3.29-11.43)
[2025-10-19 15:09] LABS: Alanine Aminotransferase 16 U/L (0-33); Albumin Level 4.3 g/dL (3.5-5.2); Alkaline Phosphatase 72 U/L (35-105); Anion Gap 14.0 (5-19); Aspartate Amino Transferase 19 U/L (0-32); Blood Urea Nitrogen 10 mg/dL (8-23); Calcium 9.7 mg/dL (8.5-10.5); Carbon Dioxide 27 mmol/L (22-29); Chloride 103 mmol/L (98-107); Globulin 2.2 g/dL (1.3-4.6); Glucose 125 mg/dL (65-115); Osmolality Calculated 291 mOsm/kg (285-295); Potassium 4.0 mmol/L (3.5-5.1); Sodium 140 mmol/L (136-145); Total Protein 6.5 g/dL (6.6-8.7)
--- NOTE | 2025-10-19 16:02 | W.ED.GENADLT ---
HPI - General Adult General: Chief complaint: General Medical Stated complaint: migraines since fall Time Seen by Provider: 10/19/25 16:01 History of Present Illness: 60-year-old female presents emergency room complaining of a headache has been going on for the last 2 days she fell and hit her head on a freezer there is no loss of consciousness. She is not on any anticoagulants. She does have a history of migraines. Associated symptoms: Reports headache(s); Deny chest pain, dyspnea or rash Related Data Previous Rx's ?Medication ?Instructions ?Recorded hydrocodone 5 mg-acetaminophen 325 1 tab PO Q6H PRN pain #20 tabs 02/08/25 mg tablet epinephrine 0.3 mg/0.3 mL 0.3 mg (0.3 mL) IM Q10M PRN 03/02/25 injection, auto-injector (EpiPen) anaphylaxis #1 ea ciprofloxacin 0.3 %-dexamethasone 4 drp otic (ear) BID 7 days #7.5 mL 04/29/25 0.1 % ear drops,suspension Diabetic Shoes 3 x insoles #1 ea 06/16/25 mupirocin 2 % topical ointment 1 applic topical TID #15 grams 06/16/25 (Centany) triamcinolone acetonide 0.1 % 1 applic topical TID #30 grams 06/16/25 topical ointment chlorhexidine gluconate 4 % 1 applic topical DAILY #473 mL 07/22/25 topical liquid (Hibiclens) mupirocin 2 % topical ointment 1 applic topical BID #15 grams 07/22/25 (Centany) sulfamethoxazole 800 1 tab PO BID #20 tabs 07/22/25 mg-trimethoprim 160 mg tablet (Bactrim DS) doxycycline hyclate 100 mg 100 mg PO BID #20 tabs 07/28/25 tablet,delayed release honey 100 % topical paste 1 applic topical BID #103 mL 08/06/25 (MediHoney (honey)) erenumab-aooe 140 mg/mL 140 mg SUBCUT .once a month #1 mL 08/11/25 subcutaneous auto-injector (Aimovig Autoinjector) dapagliflozin propanediol 10 mg 10 mg PO DAILY #30 tabs 08/26/25 tablet (Farxiga) fluticasone 250 mcg-salmeterol 50 1 inh inhalation BID 30 days #60 ea 08/26/25 mcg/dose blistr powdr for inhalation (Advair Diskus) ketoconazole 2 % topical cream 1 applic topical BID #15 grams 08/26/25 pantoprazole 40 mg tablet,delayed 40 mg PO DAILY 1 month #30 tabs 08/26/25 release (Protonix) paroxetine HCl 40 mg tablet 40 mg PO DAILY #30 tabs 08/26/25 sucralfate 1 gram tablet (Carafate) 1 g PO BID #90 tabs 08/26/25 atogepant 30 mg tablet (Qulipta) 30 mg PO DAILY #30 tabs 09/25/25 cholecalciferol (vitamin D3) 1,250 1,250 mcg PO .weekly #4 caps 10/12/25 mcg (50,000 unit) capsule dulaglutide 3 mg/0.5 mL 3 mg (0.5 mL) SUBCUT .weekly #2 mL 10/12/25 subcutaneous pen injector (Trulicity) hydroxyzine HCl 25 mg tablet 25 mg PO BID PRN anxiety #60 tabs 10/12/25 levothyroxine 25 mcg tablet 25 mcg PO DAILY #30 tabs 10/12/25 loperamide 2 mg tablet (Imodium 2 mg PO QID PRN loose stool #30 10/12/25 A-D) tabs magnesium oxide 400 mg (241.3 mg 400 mg PO BID #60 tabs 10/12/25 magnesium) tablet melatonin 10 mg tablet 10 mg PO BEDTIME 30 days #30 tabs 10/12/25 metformin 500 mg tablet 500 mg PO BID 30 days #60 tabs 10/12/25 ondansetron 8 mg disintegrating 8 mg PO Q12H PRN nausea and 10/12/25 tablet vomiting #30 tabs oxybutynin chloride 5 mg 5 mg PO DAILY 30 days #30 tabs 10/12/25 tablet,extended release 24 hr potassium chloride 20 mEq 20 meq PO BID 30 days #60 tabs 10/12/25 tablet,extended release propranolol 40 mg tablet 40 mg PO BID 30 days #60 tabs 10/12/25 simvastatin 80 mg tablet 80 mg PO DAILY 30 days #30 tabs 10/12/25 Allergies Allergy/AdvReac Type Severity Reaction Status Date / Time Alpha-Gal Allergy Severe severe Verified 09/08/25 15:06 (Ooiopavtx-Cutav-9,3-Gala N/V/D galcanezumab-gnlm (From Allergy ALGY-Rash Verified 09/08/25 15:06 Emgality Pen) Penicillins Allergy unknown Verified 09/08/25 15:06 topiramate Allergy unknown Verified 09/08/25 15:06 venlafaxine (From Effexor) Allergy itching Verified 09/08/25 15:06 Review of Systems Const: Denies: fever(s) or chills Card: Denies: chest pain Resp: Denies: dyspnea GI: Denies: abdominal pain : Denies: dysuria, urinary frequency or urinary urgency Musc: Denies: neck pain or back pain Skin/Breast: Denies: rash Neuro: Reports: headache(s) PFSH ED PFSH: Medical History Abdominal pain Hypothyroidism Major depressive disorder, recurrent, moderate Vitamin D deficiency, unspecified Chronic constipation Sleeping difficulty Urinary frequency Lung nodule Facet arthritis of lumbar region Lumbar disc disease with radiculopathy Diabetic neuropathy Environmental and seasonal allergies Hyperlipidemia Hypokalemia Hypomagnesemia HSV-2 infection Chronic nausea Chronic migraine Anxiety and depression Diabetes mellitus COPD with asthma GERD (gastroesophageal reflux disease) History of suicidal ideation 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 Chronic back pain greater than 3 months duration Encounter for long-term opiate analgesic use Surgical History Hx of colonoscopy [facility] History of esophagogastroduodenoscopy (EGD) [facility] Hx of exploratory laparotomy abdominal surgery Hx of unilateral oophorectomy left benign tumor Hx of cholecystectomy Hx of tonsillectomy Family History Mother Stroke maternal grandmother Father Cancer Lung Family/Other Diabetes Uncle Other Breast cancer Colon cancer Family history of thyroid problem Heart disease Ovarian cancer Uterine cancer Social History Smoking and tobacco/nicotine status: unknown if used tobacco/nicotine Quit status (tobacco/nicotine): has quit using Year quit tobacco: 1996 - 1PPD x 20 Years Second hand smoke exposure: Yes Alcohol intake: unknown Substance/Drug Use: unknown Additional social history: - Tobacco use: Former; quit in 1999 Alcohol use: Denies Drug use: Denies Adopted: No Caregiver/support person: No Lives independently: Yes Household members: children Marital status: Number of children: 3 service: No Current occupational status: unemployed Pets and animals: Yes Pets & animals: cat(s) and dog(s) Do you think of yourself as: Straight/Heterosexual Current gender identity: Female Physical Exam Const: COMMON NORMALS: no acute distress GENERAL APPEARANCE: cooperative and comfortable ORIENTATION/CONSCIOUSNESS: Yes awake, Yes oriented to person, Yes oriented to place and Yes oriented to time HENMT: COMMON NORMALS: normocephalic, atraumatic and hearing grossly normal bilaterally HEAD & SCALP: normocephalic and atraumatic Resp: COMMON NORMALS: normal respiratory effort, No retractions, No use of accessory muscles and clear to auscultation bilaterally AUSCULTATION: clear to auscultation bilaterally Cardio: COMMON NORMALS: regular rate, regular rhythm and No murmurs present (Cardio) RATE: regular rate RHYTHM: regular rhythm GI: COMMON NORMALS: Soft to palpation and No hepatosplenomegaly present AUSCULTATION: Yes normoactive bowel sounds PALPATION: Yes Soft to palpation, No Tenderness to palpation present (GI), No Guarding due to palpation present (GI) and Yes No hepatosplenomegaly present Extremity: COMMON NORMALS: normal to inspection, capillary refill normal, no clubbing, cyanosis or edema, no calf tenderness and no pedal edema Neuro: SENSORIUM/ORIENTATION: Yes oriented to person, Yes oriented to place and Yes oriented to time Skin: COMMON NORMALS: no rashes or lesions noted GENERAL SKIN EXAM: no rashes or lesions noted Course Vital Signs: Vital signs: Vital Signs Temperature 98.4 F 10/19/25 14:25 Pulse Rate 74 10/19/25 22:14 Respiratory Rate 18 10/19/25 19:09 Blood Pressure 127/73 10/19/25 22:14 Pulse Oximetry 94 10/19/25 22:14 Oxygen Delivery Me thod Room Air 10/19/25 20:00 MDM - General Adult Medical Decision Making Medical decision making Social determinants: None I reviewed the patient's medical record. I reviewed the patient's current home meds. Alternate historians: None Differential diagnosis: Migraine headache, concussion, intracranial bleed Lab Review: Labs CBC unremarkable with no leukocytosis hemoglobin stable CMP chemistries normal electrolytes normal renal function normal liver function normal. Imaging:CT head no acute intracranial findings Assessment of risk Level of risk: Low moderate Hospitalization considerations: No indication for hospitalization at this time Reexamination: Persistent headache Assessment and plan: Despite multiple medications including narcotics valproic acid Benadryl patient reports still having a headache however when the note myself or the nurse goes in the room patient is either sleeping or has been using a smart phone. At this point we will discharge home suspect her headache is her migraine complicated by concussion. Follow-up with primary care Lab Data 10/19/25 14:36 10/19/25 14:[address] 10/19/25 17:44 IMPRESSION: No acute intracranial abnormality. Laboratory Results WBC 8.01 10^3/uL (3.29-11.43) 10/19/25 14:36 RBC 5.47 10^6/uL (3.85-5.65) 10/19/25 14:36 Hgb 14.90 g/dL (11.27-16.99) 10/19/25 14:36 Hct 46.4 % (36-47) 10/19/25 14:36 MCV 84.8 fl (85-98) L 10/19/25 14:36 MCH 27.2 pg (27-33) 10/19/25 14:36 MCHC 32.1 g/dL (30-55) 10/19/25 14:36 RDW 13.9 % (12.1-15.1) 10/19/25 14:36 Plt Count 305 10^3/cmm (157-399) 10/19/25 14:36 MPV 9.0 fL (7.4-10.4) 10/19/25 14:36 Neut % (Auto) 47.4 % 10/19/25 14:36 Lymph % (Auto) 45.7 % 10/19/25 14:36 [place] % (Auto) 5.1 % 10/19/25 14:36 Eos % (Auto) 1.0 % 10/19/25 14:36 Baso % (Auto) 0.7 % 10/19/25 14:36 Neut # (Auto) 3.79 10^3/uL (1.8-7.7) 10/19/25 14:36 Lymph # (Auto) 3.7 10^3/uL (0.8-4.8) 10/19/25 14:36 [place] # (Auto) 0.4 10^3/uL (0.2-0.9) 10/19/25 14:36 Eos # (Auto) 0.1 10^3/uL (0.0-0.8) 10/19/25 14:36 Baso # (Auto) 0.1 10^3/uL (0.0-0.1) 10/19/25 14:36 Nucleated RBC % (auto) 0 % 10/19/25 14:36 Nucleated RBCs # 0.0 /100WBC 10/19/25 14:36 Sodium 140 mmol/L (136-145) 10/19/25 14:36 Potassium 4.0 mmol/L (3.5-5.1) 10/19/25 14:36 Chloride 103 mmol/L (98-107) 10/19/25 14:36 Carbon Dioxide 27 mmol/L (22-29) 10/19/25 14:36 Anion Gap 14.0 (5-19) 10/19/25 14:36 BUN 10 mg/dL (8-23) 10/19/25 14:36 Creatinine 0.7 mg/dL (0.5-0.9) 10/19/25 14:36 GFR Calculation 85.4 mL/min (90-130) L 10/19/25 14:36 Glucose 125 mg/dL (65-115) H 10/19/25 14:36 Calculated Osmolality 291 mOsm/kg (285-295) 10/19/25 14:36 Calcium 9.7 mg/dL (8.5-10.5) 10/19/25 14:36 Total Bilirubin 0.4 mg/dL (0.15-1.2) 10/19/25 14:36 AST 19 U/L (0-32) 10/19/25 14:36 ALT 16 U/L (0-33) 10/19/25 14:36 Alkaline Phosphatase 72 U/L (35-105) 10/19/25 14:36 Total Protein 6.5 g/dL (6.6-8.7) L 10/19/25 14:36 Albumin 4.3 g/dL (3.5-5.2) 10/19/25 14:36 Globulin 2.2 g/dL (1.3-4.6) 10/19/25 14:36 Urine Color Yellow (Yellow) 10/19/25 16:10 Urine Appearance Clear (CLEAR) 10/19/25 16:10 Urine pH 5.0 (5-7) 10/19/25 16:10 Ur Specific [place] 1.045 (1.005-1.030) H 10/19/25 16:10 Urine Protein Negative (Negative) 10/19/25 16:10 Urine Glucose (UA) 3+ (Normal) H 10/19/25 16:10 Urine Ketones Trace (Negative) 10/19/25 16:10 Urine Blood Negative (Negative) 10/19/25 16:10 Urine Nitrate Negative (Negative) 10/19/25 16:10 Urine Bilirubin Negative (Negative) 10/19/25 16:10 Urine Urobilinogen 0.2 mg/dL (Negative) 10/19/25 16:10 Ur Leukocyte Esterase Negative (Negative) 10/19/25 16:10 Urine RBC 0-2 /hpf (0-2) 10/19/25 16:10 Urine WBC 0-5 /hpf (0-5) 10/19/25 16:10 Ur Squamous Epith Cells 0-5 /hpf (0-5) 10/19/25 16:10 Amorphous Sediment Not Reportable 10/19/25 16:10 Urine Bacteria None seen /hpf (NONE) 10/19/25 16:10 Hyaline Casts 0-4 /lpf H 10/19/25 16:10 All radiology interpretation(s) finalized by discharge Discharge Plan Discharge Patient Disposition: Home Clinical Impression: Concussion, Post-concussion headache Condition: Stable Prescriptions: No Action epinephrine [EpiPen] 0.3 mg/0.3 mL auto-injector 0.3 mg IM Q10M PRN (Reason: anaphylaxis) Qty: 1 2RF Rx Instructions: for 2 doses doxycycline hyclate 100 mg tablet,delayed release (DR/EC) 100 mg PO BID Qty: 20 0RF (DME) Diabetic Shoes 3 x insoles See Rx Instructions .Route .MEDSUPPLY Qty: 1 0RF Rx Instructions: As directed by [employer] ciprofloxacin-dexamethasone 0.3-0.1 % drops,suspension 4 drp otic (ear) BID 7 Days Qty: 7.5 0RF triamcinolone acetonide 0.1 % ointment 1 applic topical TID Qty: 30 0RF mupirocin [Centany] 2 % ointment 1 applic topical TID Qty: 15 0RF sulfamethoxazole-trimethoprim [Bactrim DS] 800-160 mg tablet 1 tab PO BID Qty: 20 0RF mupirocin [Centany] 2 % ointment 1 applic topical BID Qty: 15 2RF chlorhexidine gluconate [Hibiclens] 4 % liquid 1 applic topical DAILY Qty: 473 2RF MediHoney (honey) 100 % paste 1 applic topical BID Qty: 103 0RF Aimovig Autoinjector 140 mg/mL auto-injector 140 mg SUBCUT .once a month Qty: 1 3RF sucralfate [Carafate] 1 gram tablet 1 g PO BID Qty: 90 0RF ketoconazole 2 % cream 1 applic topical BID Qty: 15 2RF Advair Diskus 250-50 mcg/dose blister with device 1 inh INHALATION BID 30 Days Qty: 60 2RF dapagliflozin propanediol [Farxiga] 10 mg tablet 10 mg PO DAILY Qty: 30 5RF paroxetine HCl 40 mg tablet 40 mg PO DAILY Qty: 30 2RF pantoprazole [Protonix] 40 mg tablet,delayed release (DR/EC) 40 mg PO DAILY 30 Days Qty: 30 2RF Qulipta 30 mg tablet 30 mg PO DAILY Qty: 30 0RF Rx Instructions: MUST SEE PROVIDER FOR FURTHER REFILLS loperamide [Imodium A-D] 2 mg tablet 2 mg PO QID PRN (Reason: loose stool) Qty: 30 0RF Rx Instructions: 2 tab after first bowel movement, then 1 tab after each loose bowel movement no more than 8 mg in 24 hours ondansetron 8 mg tablet,disintegrating 8 mg PO Q12H PRN (Reason: nausea and vomiting) Qty: 30 2RF metformin 500 mg tablet 500 mg PO BID 30 Days Qty: 60 2RF Trulicity 3 mg/0.5 mL pen injector 3 mg SUBCUT .weekly Qty: 2 2RF Rx Instructions: dose increase propranolol 40 mg tablet 40 mg PO BID 30 Days Qty: 60 2RF magnesium oxide 400 mg (241.3 mg magnesium) tablet 400 mg PO BID Qty: 60 2RF hydroxyzine HCl 25 mg tablet 25 mg PO BID PRN (Reason: anxiety) Qty: 60 2RF Rx Instructions: SWITCH TO TABLET oxybutynin chloride 5 mg tablet extended release 24hr 5 mg PO DAILY 30 Days Qty: 30 2RF simvastatin 80 mg tablet 80 mg PO DAILY 30 Days Qty: 30 2RF cholecalciferol (vitamin D3) 1,250 mcg (50,000 unit) capsule 1,250 mcg PO .weekly Qty: 4 2RF Rx Instructions: TAKE ONE CAPSULE BY MOUTH ONCE WEEKLY ON FRIDAYS levothyroxine 25 mcg tablet 25 mcg PO DAILY Qty: 30 2RF potassium chloride 20 mEq tablet extended release 20 meq PO BID 30 Days Qty: 60 2RF melatonin 10 mg tablet 10 mg PO BEDTIME 30 Days Qty: 30 2RF hydrocodone-acetaminophen 5-325 mg tablet 1 tab PO Q6H PRN (Reason: pain) Qty: 20 0RF Discharge Orders: Discharge ED (Routine); Ordered 10/19/25 Ordered By: Rob Lake Referrals: Jaleesa Dipo FNP-C [Primary Care Provider, Family Practice] Discharge Diet: Usual diet Discharge Activity: Resume usual activity Patient Instructions: Opioid Safety, Pain Management, Patient Portal & Jai Instructions Activity Restrictions/Additional Instructions: Thank you for choosing [facility] for your healthcare needs today. It is very important that you follow up as instructed or that you return to the Emergency Department should you have concerns or if your condition changes or worsens in any way. Emergency department visits are focused on emergent conditions, in some cases you may require further evaluation on an outpatient basis. You are seen in the emergency room with complaints of migraine since a fall. CT of your head was unremarkable. You are given multiple medications for your migraine. Will discharge you home have you follow-up with your primary care provider if headaches persist based on your history suspect some of the headache issues are aggravation of your underlying migraines due to concussion from your recent fall. (Please note that included in your discharge packet is information concerning opioid safety and pain management. This information is given to all patients were discharged from the ER regardless of their discharge diagnosis or the medicines they usually take or are prescribed.) Print Language: Croatian Coding Level of Care Code ED [employer] Tender for Robbi Lopez
[2025-10-19] MEDS: diphenhydrAMINE 50 mg/mL SDV 1mL 25 MG IVP ×2 (16:41→22:00)
[2025-10-19 16:42] LABS: Glucose Urine UA 3+ (Normal); Nitrate Urine Negative (Negative)
[2025-10-19 16:45] LABS: Add Urine Microscopic? YES
[2025-10-19 16:54] LABS: Specific Gravity, Urine 1.045 (1.005-1.030)
--- NOTE | 2025-10-19 17:44 | CTR_ITS ---
PROCEDURE INFORMATION: Exam: CT Head Without Contrast Exam date and time: 10/19/2025 5:49 PM Age: 60 years old Clinical indication: Injury or trauma TECHNIQUE: Imaging protocol: Computed tomography of the head without contrast. Radiation optimization: All CT scans at this facility use at least one of these dose optimization techniques: automated exposure control; mA and/or kV adjustment per patient size (includes targeted exams where dose is matched to clinical indication); or iterative reconstruction. COMPARISON: CT head wo con* [id number] 12/18/2022 1:44 AM RADIATION DOSE METRICS: Total DLP (mGy-cm): 913.12 FINDINGS: Brain: No acute infarction, hemorrhage, mass, or extra-axial fluid collection is identified. No midline shift. Cerebral ventricles: No hydrocephalus. Paranasal sinuses: Paranasal sinuses are grossly clear. Mastoid air cells: Mastoid air cells are grossly clear. Bones: Calvarium appears intact. Soft tissues: Unremarkable. CT/CT head wo con* [id number] IMPRESSION: No acute intracranial abnormality.
[2025-10-19] MEDS: morphine 4 mg/mL SDV 1 mL 2 MG IVP ×2 (18:10→19:09)
--- NOTE | 2025-10-19 19:12 | ECG_ITS ---
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: : [id number] Requested By: Rob Berry Order Number: [id number] Reading MD: NAKIA MAURICIO Measurements Intervals [place] Rate: 74 P: 47 IN: 166 QRS: -6 QRSD: 90 T: 13 QT: 390 QTc: 435 Interpretive Statements SINUS RHYTHM LOW QRS VOLTAGE IN PRECORDIAL LEADS [QRS DEFLECTION < 1.0 mV IN CHEST LEADS] Compared to ECG 02/08/2025 17:24:05 Myocardial infarct finding no longer present Incomplete right bundle-branch block no longer present Electronically Signed On 10-20-2025 11:55:49 NATURAL HISTORY COLLECTIONS CURATOR by NAKIA MAURICIO [email or web address]
[2025-10-19] MEDS: HYDROmorphone 0.5 MG/0.5 ML INJ IVP ×2 (20:37→21:59)
== END 2025-10-19 22:15 | disposition home or self-care (01) ==
PROVIDERS: Emergency Provider Family Medicine; PCP Nurse Practitioner Family
DX: S06.0XAA Concussion with loss of consciousness status unknown, initial encounter (principal); R51.9 Headache, unspecified; W19.XXXA Unspecified fall, initial encounter; Z79.84 Long term (current) use of oral hypoglycemic drugs; Z79.85 Long-term (current) use of injectable non-insulin antidiabetic drugs; Z87.891 Personal history of nicotine dependence; E78.5 Hyperlipidemia, unspecified; J44.9 Chronic obstructive pulmonary disease, unspecified; E11.40 Type 2 diabetes mellitus with diabetic neuropathy, unspecified
CPT/HCPCS: 36415; 70450; 80053; 81001; 85025; 93005; 96365; 96375; 96376; 99285; J1171; J1200; J1885; J2270; J3490; J7040